=== PATIENT | female | born 1965 | race Caucasian/White ===

== ENCOUNTER → 2021-04-17 08:50 | Outpatient (BNVA) | payer OTHER, SELFPAY | PROVIDERS: PCP Physician Assistant Medical; Referring Provider Physician Assistant Medical; Visit Provider Internal Medicine Cardiovascular Disease ==

== ENCOUNTER → 2021-04-20 13:34 | Outpatient (REF) | payer OTHER, SELFPAY ==
--- NOTE | 2021-04-20 13:42 | HM_ITS ---
REQUESTING PROVIDER: Matheus Krause MD. REASON FOR TEST: TIA. TECHNIQUE: The patient was hooked up to a cardiac event monitor from 04/20/2021 to 05/20/2021. FINDINGS: The patient's baseline rhythm was normal sinus rhythm with heart rate varying from 67 to 100 beats per minute. There was 1 single isolated PVC noted. The patient triggered the device 44 times totally, but only few times reported symptoms of fluttering. All of these triggered events correlated to sinus rhythm. There were no episodes of atrial fibrillation. CONCLUSION: 1. Baseline rhythm is normal sinus rhythm with heart rate varying from 67 to 100 beats per minute. 2. The patient triggered events correlated with sinus rhythm. 3. No atrial fibrillation noted. Matheus Krause MD NRS/MODL / [id number]
== END ==
LOC: HO.CARD 13:34
PROVIDERS: PCP Physician Assistant Medical; Visit Provider Internal Medicine Cardiovascular Disease
DX: G45.9 Transient cerebral ischemic attack, unspecified (principal)
CPT/HCPCS: 93270

== ENCOUNTER 2021-04-25 10:42 | Day surgery (SDC) | payer OTHER, SELFPAY ==
--- NOTE | 2021-04-24 13:15 | HO.ANESPROP2 ---
Documented by User: Jerilyn Dempsey NP 04/24/21 13:19 HPI - Anesthesia Eval Consult details Narrative: 56yo F for Transesophageal Echocardiogram *Multiple Med Allergies Eval d/t TIA 12/2020 [facility] Active Problems Active Problems: All Active Problems (Updated 04/17/21 @ 09:49 by Matheus Krause MD) Hyperlipidemia (Acute) TIA (transient ischemic attack) (Acute) Past Medical History Medical History Allergy to statin medication Hyperlipidemia TIA (transient ischemic attack) Family History Family History Father CVD (cardiovascular disease) Mother No problems noted. Brother CVD (cardiovascular disease) Surgical History Surgical History Hx of abdominal surgery Hx of breast surgery Hx of cholecystectomy Hx of hernia repair Hx of hysterectomy Hx of knee surgery Hx of thyroidectomy Social History Social History Patient Tobacco Use Status: Never used Tobacco Use of substances other than those prescribed or required for medical reasons: No Are you DNR?: No Advance Directives: No Advance Directives Information Provided: Yes Recently lost weight without trying: No Nutrition Risks: No Nutritional Risk Meds Allergies Allergy/AdvReac Type Severity Reaction Status Date / Time Pohqron-RHC-AfW Reductase Allergy Severe Muscle Pain Verified 04/25/21 11:08 Inhibitor atenolol Allergy Mild Palpitation Verified 04/25/21 11:10 s adhesive tape Allergy rash Verified 04/17/21 09:38 gabapentin [From Neurontin] Allergy Blurry Verified 04/25/21 11:11 Vision hydrocodone [From Vicodin] Allergy Vomiting Verified 04/25/21 11:11 hydromorphone [From Dilaudid] Allergy Vomiting Verified 04/25/21 11:09 meperidine [From Demerol] Allergy Vomiting Verified 04/25/21 11:06 morphine Allergy Vomiting Verified 04/25/21 11:05 oxycodone [From Percocet] Allergy Vomiting Verified 04/25/21 11:05 Sulfa (Sulfonamide Allergy Hives Verified 04/25/21 11:05 Antibiotics) Home Medications Medication Instructions Recorded Confirmed Last Taken Type aspirin 81 mg tablet,delayed 81 mg PO DAILY 04/17/21 04/17/21 Unknown History release (Adult Aspirin Regimen) furosemide 40 mg tablet 40 mg PO TID 04/17/21 04/17/21 Unknown History krill oil 500 mg capsule mg PO 04/17/21 04/17/21 Unknown History levothyroxine 175 mcg tablet 175 mcg PO DAILY 04/17/21 04/17/21 04/25/21 07:00 History (Synthroid) potassium chloride 20 mEq 20 meq PO BID 04/17/21 04/17/21 Unknown History tablet,extended release(part/cryst) Exam Exam Date and Time: April 24, 2021 1315 Assessment and Plan Assessment Anesthesia Assessment: Chart Reviewed Documented by User: Ashia Matute MD 04/25/21 12:56 [facility] Past Medical History Medical History Allergy to statin medication Hyperlipidemia TIA (transient ischemic attack) Family History Family History Father CVD (cardiovascular disease) Mother No problems noted. Brother CVD (cardiovascular disease) Surgical History Surgical History Hx of abdominal surgery Hx of breast surgery Hx of cholecystectomy Hx of hernia repair Hx of hysterectomy Hx of knee surgery Hx of thyroidectomy History of Problems with Anesthesia: No Social History Social History Patient Tobacco Use Status: Never used Tobacco Use of substances other than those prescribed or required for medical reasons: No Are you DNR?: No Advance Directives: No Advance Directives Information Provided: Yes Recently lost weight without trying: No Nutrition Risks: No Nutritional Risk Meds Allergies Allergy/AdvReac Type Severity Reaction Status Date / Time Leugfto-JVR-ZzJ Reductase Allergy Severe Muscle Pain Verified 04/25/21 11:08 Inhibitor atenolol Allergy Mild Palpitation Verified 04/25/21 11:10 s adhesive tape Allergy rash Verified 04/17/21 09:38 gabapentin [From Neurontin] Allergy Blurry Verified 04/25/21 11:11 Vision hydrocodone [From Vicodin] Allergy Vomiting Verified 04/25/21 11:11 hydromorphone [From Dilaudid] Allergy Vomiting Verified 04/25/21 11:09 meperidine [From Demerol] Allergy Vomiting Verified 04/25/21 11:06 morphine Allergy Vomiting Verified 04/25/21 11:05 oxycodone [From Percocet] Allergy Vomiting Verified 04/25/21 11:05 Sulfa (Sulfonamide Allergy Hives Verified 04/25/21 11:05 Antibiotics) Home Medications Medication Instructions Recorded Confirmed Last Taken Type aspirin 81 mg tablet,delayed 81 mg PO DAILY 04/17/21 04/17/21 Unknown History release (Adult Aspirin Regimen) furosemide 40 mg tablet 40 mg PO TID 04/17/21 04/17/21 Unknown History krill oil 500 mg capsule mg PO 04/17/21 04/17/21 Unknown History levothyroxine 175 mcg tablet 175 mcg PO DAILY 04/17/21 04/17/21 04/25/21 07:00 History (Synthroid) potassium chloride 20 mEq 20 meq PO BID 04/17/21 04/17/21 Unknown History tablet,extended release(part/cryst) Exam Airway Mallampati Class: II TM Dist: >3cm Neck ROM: Full Loose/Missing/Broken Teeth: No Heart: RRR Lungs: CTA Assessment and Plan Assessment Anesthesia Assessment: Anesthesia Plan Discussed Final Anesthetic Review History of Problems with Anesthesia: No NPO: Yes ASA Class: II Final Preanesthetic Review: Meds/Allgs Chart Reviewed, Consent Obtained/Reviewed and Anes Risks/Benef Reviewed Patient Risk: Low Procedure Risk: Intermediate Anesthetic Plan Anesthetic Plan: MAC: Disposition: Standard PACU
[2021-04-25 11:14] VITALS: BMI 35.2
[2021-04-25 11:28] VITALS: BP 114/83; PULSE 74; RESP 16; TEMP 36.8; O2SAT 96
[2021-04-25] MEDS: Lactated Ringers 1,000 ML 50 ML IVCONT (11:33)
--- NOTE | 2021-04-25 11:55 | CA_ITS ---
Transesophageal Echocardiogram Amended Patient (Last, First, Middle): Leydi Miller, Gender: Female Date of : 1965 Age: 56 Procedure Date: 04/25/2021 Procedure Type: Transesophageal Echocardiogram Location: OP Height: 175.26 cm Weight: 108.41 kg BSA: 2.23 m2 Heart Rate: bpm Park Naturalist: VINH Pepe MD: Matheus Krause MD Symptoms: G45.9 - Transient cerebral ischemic attack, unspecified Bull Ladle Tender: Matheus Krause MD Conclusion: ??? 1. Normal LV systolic and diastolic function 2. No intracardiac masses, vegetations or thrombi 3. Lipomatous hypertrophy of interatrial septum with no evidence of PFO 4. Protruding plaque in the ascending aorta as well as mobile plaque in the transverse aorta with evidence of atherosclerosis 5. Normal cardiac valvular Doppler 6. No pericardial effusion Findings Procedure Information Consent was obtained prior to the procedure. Pre PRATIMA oral cavity was checked and revealed no overcrowding. The adult 3D probe was passed with no difficulty. Left Ventricle Normal left ventricular size, thickness, and systolic function. The visually estimated ejection fraction is between 60-65%. Spectral Doppler is indicative of a normal filling pattern. Right Ventricle Mildly increased right ventricular cavity size. There is normal right ventricular systolic function. Atria The left atrium is mildly dilated. There is lipomatous hypertrophy of the interatrial septum. There is no evidence of a thrombus in the left atrial appendage. There is no evidence of a patent foramen ovale. There is no evidence of thrombus or mass in the left atrium. Color Doppler across the interatrial septum was suggestive of no evidence of interatrial shunting. Multiple saline contrast injection studies were performed, although there was no complete opacification at all times of the for salt wall is there was no clear evidence of shunting. The left upper, right upper and right lower pulmonary veins drain normally into the left atrium. The right atrium is mildly dilated. There is no evidence of thrombus or mass in the right atrium. The IVC and SVC drain normally into the right atrium. Aortic Valve Normal aortic valve structure and function. There is mild calcification of the aortic valve. There is no aortic valve stenosis. There is no evidence of a mass on the aortic valve. There is no aortic valve regurgitation. Mitral Valve Normal mitral valve structure and function. There is no mitral valve prolapse. There is trace mitral valve regurgitation. There is no mitral valve stenosis. Pulmonic Valve The pulmonic valve is likely normal. There is no pulmonic valve regurgitation. Tricuspid Valve Normal tricuspid valve structure. There is trace tricuspid valve regurgitation. There is no evidence of a mass on the tricuspid valve. Great Vessels All visible segments of the aorta are normal in size. Small plaque is seen in the sino tubular ridge. The visualized portions of the pulmonary artery and branches are normal. There is also moderate also crosses in arch with a mobile plaque noted Venous The inferior vena cava is normal in size and collapses greater than 50% with inspiration. Pericardium/Pleural There is no evidence of pericardial effusion. Updated by Matheus Krause on 05:26 PM with Status of Final Matheus Krause MD electronically signed on 04/25/2021 5:26:58 PM with status of Final
--- NOTE | 2021-04-25 12:38 | MHC.SHP ---
Pre-Procedural Eval Section A Date of Service: 04/25/21 The patient is an INPATIENT: No Changes since office visit: Yes Patient answered all questions; No Cold of Flu in the past 2 weeks, No New Medical Problems and No Changes in Medication The History & Physical has been completed within 30 days and I have reviewed it.: Yes Section B Chief Complaint: TIA Allergies: Allergies Allergy/AdvReac Type Severity Reaction Status Date / Time [id number] Reductase Allergy Severe Muscle Pain Verified 04/25/21 11:08 Inhibitor atenolol Allergy Mild Palpitation Verified 04/25/21 11:10 s adhesive tape Allergy rash Verified 04/17/21 09:38 gabapentin [From Neurontin] Allergy Blurry Verified 04/25/21 11:11 Vision hydrocodone [From Vicodin] Allergy Vomiting Verified 04/25/21 11:11 hydromorphone [From Dilaudid] Allergy Vomiting Verified 04/25/21 11:09 meperidine [From Demerol] Allergy Vomiting Verified 04/25/21 11:06 morphine Allergy Vomiting Verified 04/25/21 11:05 oxycodone [From Percocet] Allergy Vomiting Verified 04/25/21 11:05 Sulfa (Sulfonamide Allergy Hives Verified 04/25/21 11:05 Antibiotics) Plan I have reviewed the history and physical and performed a pertinent physical examination on my patient. No changes have occurred unless specified.
[2021-04-25 13:26] VITALS: BP 128/75; PULSE 68; RESP 18; TEMP 36.8; O2SAT 100
[2021-04-25 13:41] VITALS: BP 126/64; PULSE 63; RESP 18; O2SAT 100
[2021-04-25 14:02] VITALS: BP 135/75; PULSE 70; RESP 18; O2SAT 96
== END 2021-04-25 14:47 | disposition home or self-care (01) ==
PROVIDERS: PCP Physician Assistant Medical; Visit Provider Internal Medicine Cardiovascular Disease
PROC: (CPT 93312; principal; 2021-04-25 12:30)
DX: G45.9 Transient cerebral ischemic attack, unspecified (principal); E78.5 Hyperlipidemia, unspecified; Z79.82 Long term (current) use of aspirin; Z79.899 Other long term (current) drug therapy; Z88.2 Allergy status to sulfonamides; Z88.8 Allergy status to other drugs, medicaments and biological substances
CPT/HCPCS: 93312

== ENCOUNTER → 2021-05-09 09:25 | Outpatient (BNVA) | payer OTHER, SELFPAY | PROVIDERS: PCP Physician Assistant Medical; Referring Provider Physician Assistant Medical; Visit Provider Internal Medicine Cardiovascular Disease ==

== ENCOUNTER 2021-08-20 08:03 | Outpatient (REF) | payer OTHER, SELFPAY ==
[2021-08-20 09:27] LABS: Cholesterol 221 mg/dL; HDL Cholesterol 46 mg/dL; LDL Cholesterol Calculated 127 mg/dl; Triglycerides 243 mg/dL
== END 2021-08-20 08:04 | disposition home or self-care (01) ==
LOC: HO.LAB 08:03
PROVIDERS: PCP Physician Assistant Medical; Visit Provider Internal Medicine Cardiovascular Disease
DX: E78.5 Hyperlipidemia, unspecified (principal)
CPT/HCPCS: 36415; 80061

== ENCOUNTER 2021-11-27 10:13 | Outpatient (REF) | payer OTHER, SELFPAY ==
[2021-11-27 12:14] LABS: Cholesterol 218 mg/dL; HDL Cholesterol 38 mg/dL; LDL Cholesterol Calculated 125 mg/dl; Triglycerides 279 mg/dL
== END 2021-11-27 10:14 | disposition home or self-care (01) ==
LOC: HO.LAB 10:13
PROVIDERS: PCP Physician Assistant Medical; Visit Provider Internal Medicine Cardiovascular Disease
DX: E78.5 Hyperlipidemia, unspecified (principal)
CPT/HCPCS: 36415; 80061

== ENCOUNTER 2022-02-12 08:55 | Outpatient (REF) | payer OTHER, SELFPAY ==
[2022-02-12 10:10] LABS: Cholesterol 150 mg/dL; HDL Cholesterol 49 mg/dL; LDL Cholesterol Calculated 49 mg/dl; Triglycerides 261 mg/dL
== END 2022-02-12 08:56 | disposition home or self-care (01) ==
LOC: HO.LAB 08:55
PROVIDERS: PCP Physician Assistant Medical; Visit Provider Internal Medicine Cardiovascular Disease
DX: E78.5 Hyperlipidemia, unspecified (principal)
CPT/HCPCS: 36415; 80061

== ENCOUNTER 2022-03-05 11:39 | Emergency (ER) | payer OTHER, SELFPAY ==
--- NOTE | 2022-03-05 | ECG_ITS ---
Test Reason : chest pain Blood Pressure : / mmHG Vent. Rate : 070 BPM Atrial Rate : 070 BPM P-R Int : 174 ms QRS Dur : 098 ms QT Int : 434 ms P-R-T Axes : 026 -16 013 degrees QTc Int : 468 ms Normal sinus rhythm Minimal voltage criteria for LVH, may be normal variant ( [place] product ) Nonspecific T wave abnormality Abnormal ECG No previous ECGs available Referred By: Curt Ordoñez Electronically Signed By:NIMESH WARREN
--- NOTE | ~2022-03-05 | US_ITS ---
EXAMINATION: US VENOUS ULTRASOUND WITH DOPPLER LOWER EXTREMITY, BILATERAL CLINICAL INFORMATION: Positive d-dimer. COMPARISON: Concurrent CTA of the chest 03/05/2022. TECHNIQUE: Ultrasound of the deep veins is performed from the hip to the calf with compression sonography and color and pulse Doppler assessment. Spectral analysis with color-flow imaging is performed. FINDINGS: RIGHT: There is normal venous compression and respiratory variation and augmented flow. The visualized common femoral vein, superficial femoral vein, profunda femoral vein, popliteal vein, and the trifurcation region shows no evidence of deep venous thrombosis. There are no focal fluid collections. LEFT: There is normal venous compression and respiratory variation and augmented flow. The visualized common femoral vein, superficial femoral vein, profunda femoral vein, popliteal vein, and the trifurcation region shows no evidence of deep venous thrombosis. There are no focal fluid collections. If the patient's symptoms persist, followup ultrasound in 5 days 7 days might be of value to exclude proximal propagation from a non-visualized calf vein. US/US venous duplex LE BI IMPRESSION: 1. No DVT demonstrated in the bilateral lower extremities. 2. There are no focal fluid collections.
--- NOTE | ~2022-03-05 | XR_ITS ---
EXAMINATION: XR CHEST CLINICAL INFORMATION: Chest pain. COMPARISON: None TECHNIQUE: Frontal view of the chest was obtained. FINDINGS: No significant abnormality is noted involving the heart, lungs, mediastinum, bony thorax or soft tissues. XR/XR chest 1V IMPRESSION: No acute cardiopulmonary process.
--- NOTE | ~2022-03-05 | NM_ITS ---
EXAMINATION: PULMONARY PERFUSION STUDY CLINICAL INFORMATION: Indeterminate CTA. Assess for pulmonary emboli. COMPARISON: Concurrent CTA of the chest an chest x-ray 03/05/2022. TECHNIQUE: Serial dual detector gamma scintillation camera images were obtained after intravenous injection of 3.5 mCi Tc-99m MAA and an 8-view perfusion study was performed. No ventilation images were acquired as per Perfusion-only modified PIOPED II protocol. FINDINGS: Perfusion images: No segmental perfusion defects are present. There is homogeneous/heterogeneous distribution of activity bilaterally. There are no segmental or anatomic appearing perfusion defects present. NM/NM pul perfusion IMPRESSION: Normal pulmonary perfusion scan. Perfusion-only interpretation reduces both the specificity and the proportion of nondiagnostic readings compared to ventilation and perfusion using modified PIOPED II criteria Modified PIOPED II criteria: A large segmental defect covers >75% of a pulmonary segment. A moderate, subsegmental defect covers 25-75% of a pulmonary segment and is considered in the interpretative criteria equivalent to one-half of a large defect. A small, subsegmental defect covers <25% of a pulmonary segment. Pulmonary embolism present (high probability) * two or more large mismatched segmental perfusion defects or the arithmetic equivalent of moderate and/or large defects Nondiagnostic (low or intermediate probability) * all other findings not falling into the pulmonary embolism present or absent categories Pulmonary embolism absent (normal or very low probability) * no perfusion defects * nonsegmental perfusion defects (e.g. pleural effusion at the costophrenic angle, cardiomegaly, elevated hemidiaphragm, hilar enlargement, linear atelectasis), without other perfusion defects in either lung * perfusion defects smaller than corresponding chest radiographic opacity * one to three small subsegmental perfusion defects * two or more matched ventilation and perfusion defects with a regionally normal chest radiograph and some areas of normal perfusion elsewhere * solitary triple matched defect (matched ventilation and perfusion defect with corresponding chest radiographic opacity) in a single segment in the middle or upper lung zone * stripe sign (a stripe of perfusion peripheral to a defect, best seen on tangential view) * large pleural effusion (occupying one-third or more of the pleural cavity), without other perfusion defects in either lung
--- NOTE | ~2022-03-05 | CT_ITS ---
EXAMINATION: CT ANGIOGRAM OF THE CHEST WITH AND WITHOUT CONTRAST (CT PULMONARY ANGIOGRAM FOR PE) CLINICAL INFORMATION: Reason for Exam chest pain, elevated ddimer COMPARISON: None TECHNIQUE: Prior to contrast administration, noncontrast localization images were obtained. Subsequently, multidetector volumetric imaging was performed from the thoracic inlet to below the diaphragms following the administration of 65 mL Omnipaque 350 intravenous contrast. No contrast reaction reported Sagittal, coronal, and MIP oblique sagittal reformatted images were obtained on the CT workstation, uploaded to PACS, and reviewed. This CT examination was performed using dose optimization techniques as appropriate, variously including the following: *Automated exposure control *Adjustment of mA and/or kV according to patient size (this includes techniques or standardized protocols for targeted exams where dose is matched to indication/reason for exam; i.e. extremities or head) *Use of iterative reconstruction technique Total exam dose-length product 326 mGy-cm FINDINGS: QUALITY OF STUDY/CONTRAST BOLUS: Suboptimal. The pulmonary arteries are the most poorly opacified vascular structures on this study. PULMONARY ARTERIES: No central or very large segmental pulmonary emboli. THORACIC AORTA: No aneurysm or dissection. LUNG: No focal consolidation, nodules or masses. Tiny punctate granuloma noted in the left lateral costophrenic angle. PLEURA: No pleural effusion or pneumothorax. MEDIASTINUM: Normal heart size. No pericardial effusion. No hilar or mediastinal lymphadenopathy. No evidence of septal bowing or right heart strain. CHEST WALL/AXILLA: No axillary or internal mammary lymphadenopathy. OSSEOUS STRUCTURES: No acute or suspicious osseous abnormality. UPPER ABDOMEN: Status post cholecystectomy No reflux of contrast into the hepatic veins to suggest elevated right heart pressures. CT/CT angio chest PE protocol IMPRESSION: Poor quality exam. No central or very large segmental emboli are seen. VTE: indeterminate
[2022-03-05 13:48] VITALS: BP 135/83; PULSE 73; RESP 18; TEMP 36.2; O2SAT 98; BMI 35.4
--- NOTE | 2022-03-05 14:01 | PC.NURSE ---
patient triaged no complaints of chest pain at present, she had two episodes since friday and her provider this morning sent her here for evaluation. She denies chest pain now, no SOB or dizziness. She's here to be evaluated for the ongoing complaint of chest pain intermittent lasting 10-20 minutes that resolves on it's own. She has been dealing with poison [place] and infections with this exposure.
--- NOTE | 2022-03-05 14:20 | ED.CHESTPAIN ---
HPI - Chest Pain General Chief Complaint: Chest Pain Stated Complaint: severe cellulitus/ angina Time Seen by Provider: 03/05/22 14:16 Source: patient and old records reviewed Mode of arrival: ambulatory Limitations: no limitations History of Present Illness HPI narrative: 56 yo female with hx of HLD on Praluent, hx of mobile transverse aortoa plaque on aspirin and plavix, prior right breast ductal carcinoma in situ has been dealing with a rash following exposure to poison sumac. She has a history of terrible reactions to sumac in the past. She has been see at for the last 2.5 weeks - has been on two rounds of cephalexin 500mg QID, prednisone taper over 10 days, even a course of famcyclovir in case it was shingles. She notes that the rash has not really improved and she is worried she has cellulitis. Also notes intermittent bouts of chest pain that is intense with some associated indigestion one on Friday while driving and the other last night. Sent by today for chest pain evaluation. MD complaint: chest pain (rash) Pertinent past history: other (atherosclerosis of aorta) Onset (ago): week(s) (2.5 weeks ago for rash and chest pain intemittent since friday ) Timing of current episode: constant Prior episodes: Yes Onset: during rest Pain location: substernal Pain radiation: left arm and neck Severity: moderate Quality: heaviness Relieving factors: nothing Exacerbating factors: nothing Context: recent illness and new medications Associated symptoms: dyspnea Treatment prior to arrival: none Related Data Home Medications Medication Instructions Recorded Confirmed aspirin 81 mg tablet,delayed 81 mg PO DAILY 04/17/21 05/09/21 release (Adult Aspirin Regimen) furosemide 40 mg tablet 40 mg PO TID 04/17/21 05/09/21 levothyroxine 175 mcg tablet 175 mcg PO DAILY 04/17/21 05/09/21 (Synthroid) potassium chloride 20 mEq 20 meq PO BID 04/17/21 05/09/21 tablet,extended release(part/cryst) furosemide 40 mg tablet 80 mg PO DAILY 03/05/22 Previous Rx's Medication Instructions Recorded bempedoic acid 180 mg tablet 180 mg PO DAILY 90 days #90 tabs 08/20/21 (Nexletol) clopidogrel 75 mg tablet (Plavix) 75 mg PO DAILY #30 tabs 11/07/21 alirocumab 150 mg/mL subcutaneous 150 mg subcut Q2W 90 days #7 mL 12/14/21 pen injector (Praluent Pen) Allergies Allergy/AdvReac Type Severity Reaction Status Date / Time ezetimibe [From Zetia] Allergy Severe abdominal Verified 05/09/21 09:43 pain Kfuzehb-AHH-LeV Reductase Allergy Severe Muscle Pain Verified 04/25/21 11:08 Inhibitor atenolol Allergy Mild Palpitation Verified 04/25/21 11:10 s adhesive tape Allergy rash Verified 04/17/21 09:38 gabapentin [From Neurontin] Allergy Blurry Verified 04/25/21 11:11 Vision hydrocodone [From Vicodin] Allergy Vomiting Verified 04/25/21 11:11 hydromorphone [From Dilaudid] Allergy Vomiting Verified 04/25/21 11:09 meperidine [From Demerol] Allergy Vomiting Verified 04/25/21 11:06 morphine Allergy Vomiting Verified 04/25/21 11:05 oxycodone [From Percocet] Allergy Vomiting Verified 04/25/21 11:05 Sulfa (Sulfonamide Allergy Hives Verified 04/25/21 11:05 Antibiotics) Review of Systems Review of Systems: Constitutional : No Weight loss, No Fever, No Chills ENT/Mouth : No sore throat, No Rhinorrhea Eyes: No Eye Pain, No Swelling Cardiovascular : pos Chest Pain, pos SOB, no Dyspnea on Exertion, No Orthopnea, No Edema, No Palpitations Respiratory : No Cough, No Sputum Gastrointestinal : no Nausea, No Vomiting, No Diarrhea, No abdominal Pain, No Hematochezia, No Melena Genitourinary : No Dysuria, No Urinary Frequency Musculoskeletal : No joint pain, No Myalgias, No Joint Swelling Skin : No Skin Lesions, pos rash Neuro : No Weakness, No Numbness, No Dizziness, No Headache Psych : No Anxiety/Panic, No Depression Heme/Lymph: No Bruising, No Lymphadenopathy Endocrine : No Polyuria, No Polydipsia All other systems reviewed and are negative [facility] Past Medical History Attestation statement: The following information was validated with the patient. Medical History (Updated 03/05/22 @ 15:15 by Celena Hardy DO) Allergy to statin medication Ductal carcinoma in situ (DCIS) of breast Hyperlipidemia Thoracic aorta atherosclerosis TIA (transient ischemic attack) Surgical History Hx of abdominal surgery Hx of breast surgery Hx of cholecystectomy Hx of hernia repair Hx of hysterectomy Hx of knee surgery Hx of thyroidectomy Family History Family History Father CVD (cardiovascular disease) Mother No problems noted. Brother CVD (cardiovascular disease) Social History Social History Patient Tobacco Use Status: Never used Tobacco Advance Directives: No Advance Directives Information Provided: No Physical Exam Vital Signs: Vital Signs: Last Vital Signs Temp 97.2 F 03/05/22 13:48 Pulse 73 03/05/22 13:48 Resp 18 03/05/22 13:48 BP 135/83 03/05/22 13:48 Pulse Ox 98 03/05/22 13:48 O2 Del Method 03/05/22 13:48 BMI result Body Mass Index 35.4 Appearance: Alert. Oriented X3. No acute distress. Anxious Eyes: Pupils equal, round and reactive to light. ENT: Pharynx normal. Neck: Normal inspection. Neck supple. CVS: Normal heart rate and rhythm. Pulses normal. Respiratory: No respiratory distress. Breath sounds normal. Abdomen: Soft and non-tender. Skin: Skin warm and dry. Normal skin color. Normal skin turgor. Extremities: No lower extremity edema. No calf ttp R upper inner AC healing flaked over patchy rash no warmth not raised not consistent wtih cellulitis, her abdomen has patchy areas of faint pink large confluent areas that are not warm and appear as giant urticaria, R breast is reddned no fluctuance, no mass felt, no drainage - very minimal warmth and the redness is mild. Neuro: Oriented X 3. No motor deficit. No sensory deficit. Course Course Course Narrative: ddimer above VTE will obtain CTA:PE study to r/o PE MDM - Chest Pain MDM Narrative Medical decision making narrative: 56 yo female with hx of HLD on Praluent, hx of mobile transverse aortoa plaque on aspirin and plavix, prior right breast ductal carcinoma here with c/o persistent rash from poison [place] concerned she has cellulitis her R arm and abdomen are still leftover dermatitis, she might have mild cellulitis of the R breast but no abscess. She definitely could use longer prednisone course has no hx of DM. She also c/o chest pain x intermittent since Friday has hx of mobile aortic plaque she does not it radiated to her jaw and back at this time EKG and troponin x 2 with ddimer ordered. Dispo per results and findings. Discussed stopping her cephalexin will consider doxycycline and prednisone if workup negative add on GERD medication. ECG Data ECG #1: Attestation: I personally reviewed and interpreted this ECG as follows: ECG interpretation date: 03/05/22 ECG interpretation time: 14:51 Interpretation: Rate: 70 Rhythm: NSR [place]: left Normal P waves. Normal ANGELICA. Normal QRS complex. ST T wave : nonspecific no LYNNE qTC: normal prior studies: no acute ischemia no EKGs in our system to review The study has been interpreted contemporaneously by me. . Discharge Plan Discharge Clinical Impression: Chest pain Patient Disposition: Still a Patient Prescriptions: No Action Nexletol 180 mg tablet 180 mg PO DAILY 90 Days Qty: 90 1RF clopidogrel [Plavix] 75 mg tablet 75 mg PO DAILY Qty: 30 5RF Praluent Pen 150 mg/mL pen injector 150 mg subcut Q2W 90 Days Qty: 7 3RF Rx Instructions: inject into abdomen, thigh, or upper arm (deltoid muscle); rotate sites potassium chloride 20 mEq tablet,ER particles/crystals 20 meq PO BID furosemide 40 mg tablet 40 mg PO TID levothyroxine [Synthroid] 175 mcg tablet 175 mcg PO DAILY aspirin [Adult Aspirin Regimen] 81 mg tablet,delayed release (DR/EC) 81 mg PO DAILY krill oil 500 mg capsule PO
[2022-03-05 14:57] LABS: D Dimer High Sensitivity 336 NG/ML
[2022-03-05 15:04] LABS: Alanine Aminotransferase 63 U/L (0-31); Albumin Level 4.7 g/dL (3.5-5.0); Alkaline Phosphatase 75 U/L (39-117); Anion Gap 19 (12-20); Aspartate Amino Transferase 28 U/L (5-31); Bilirubin Direct 0.3 mg/dL (0.0-0.5); Bilirubin Total 0.7 mg/dL (0.0-1.0); Blood Urea Nitrogen 22 mg/dL (9-16); C Reactive Protein 2.12 mg/dL (< or = 0.50); Calcium 9.8 mg/dL (8.4-10.2); Carbon Dioxide 26 mmol/L (22-29); Chloride 100 mmol/L (96-108); Creatinine Clr Calc Pharmacy 90.5; Estimated Glomerular Filt Rate > 60; Glucose Random 105 mg/dL (60-115); Lipase 106 U/L (8-78); Potassium 3.4 mmol/L (3.3-5.1); Sodium 142 mmol/L (135-145)
[2022-03-05 16:09] LABS: Basophils Absolute Auto 0.1 X10*3/uL (0.0-0.2); Basophils Percent Auto 0.8 % (0-2); Eosinophils Absolute Auto 0.4 X10*3/uL (0.0-0.4); Eosinophils Percent Auto 4.7 % (0-4); Hematocrit 50.3 % (37.0-47.0); Hemoglobin 16.6 g/dl (12.0-16.0); Imm Gran Abs Auto 0.03 X10*3/uL (0.00-0.03); Imm Gran Pct Auto 0.3 % (0.0-0.4); Lymphocytes Absolute Auto 1.9 X10*3/uL (1.2-4.9); Lymphocytes Percent Auto 20.4 % (20-40); MANUAL DIFF FLAG NO; Mean Corpuscular Hemoglobin 29.2 pg (27.0-33.0); Mean Corpuscular Volume 88.4 fL (80.0-98.0); Mean Platelet Volume 9.4 fL (9.4-12.3); Monocytes Absolute Auto 0.7 X10*3/uL (0.1-1.2); Monocytes Percent Auto 6.9 % (2-11); Neutrophils Absolute Auto 6.3 x10*3/uL (2.0-8.3); Neutrophils Percent Auto 66.9 % (45-73); Platelet Count 347 X10*3/uL (160-400); Red Blood Count 5.69 X10*6/uL (4.20-5.50); White Blood Count 9.4 X10*3/uL (4.8-10.8)
[2022-03-05] MEDS: iohexoL 350 MG/ML 100 ML INFUS..BTL IV (16:21)
[2022-03-05 16:22] LABS: Lactic Acid 0.9 mmol/L (0.5-2.0)
[2022-03-05 16:29] LABS: Troponin-I High Sensitivity < 3.5 ng/L (<3.5-17.0)
[2022-03-05 16:46] LABS: Procalcitonin 0.05 ng/mL
--- NOTE | 2022-03-05 17:23 | ED_ITS ---
HPI - Chest Pain General Chief Complaint: Chest Pain Stated Complaint: severe cellulitus/ angina Time Seen by Provider: 03/05/22 14:16 Source: patient and old records reviewed Mode of arrival: ambulatory Limitations: no limitations History of Present Illness Pain location: substernal Quality: heaviness Relieving factors: nothing Exacerbating factors: nothing Context: recent illness and new medications Associated symptoms: dyspnea Related Data Home Medications Medication Instructions Recorded Confirmed aspirin 81 mg tablet,delayed 81 mg PO DAILY 04/17/21 05/09/21 release (Adult Aspirin Regimen) furosemide 40 mg tablet 40 mg PO BEDTIME 04/17/21 05/09/21 levothyroxine 175 mcg tablet 175 mcg PO DAILY 04/17/21 05/09/21 (Synthroid) potassium chloride 20 mEq 20 meq PO BID 04/17/21 05/09/21 tablet,extended release(part/cryst) furosemide 40 mg tablet 80 mg PO DAILY 03/05/22 Previous Rx's Medication Instructions Recorded bempedoic acid 180 mg tablet 180 mg PO DAILY 90 days #90 tabs 08/20/21 (Nexletol) clopidogrel 75 mg tablet (Plavix) 75 mg PO DAILY #30 tabs 11/07/21 alirocumab 150 mg/mL subcutaneous 150 mg subcut Q2W 90 days #7 mL 12/14/21 pen injector (Praluent Pen) doxycycline hyclate 100 mg capsule 100 mg PO BID 10 days #20 caps 03/05/22 famotidine 20 mg tablet (Pepcid) 20 mg PO DAILY #14 tabs 03/05/22 prednisone 20 mg tablet 20 mg PO DAILY 15 days #13 tabs 03/05/22 Allergies Allergy/AdvReac Type Severity Reaction Status Date / Time ezetimibe [From Zetia] Allergy Severe abdominal Verified 05/09/21 09:43 pain [id number] Reductase Allergy Severe Muscle Pain Verified 04/25/21 11:08 Inhibitor atenolol Allergy Mild Palpitation Verified 04/25/21 11:10 s adhesive tape Allergy rash Verified 04/17/21 09:38 gabapentin [From Neurontin] Allergy Blurry Verified 04/25/21 11:11 Vision hydrocodone [From Vicodin] Allergy Vomiting Verified 04/25/21 11:11 hydromorphone [From Dilaudid] Allergy Vomiting Verified 04/25/21 11:09 meperidine [From Demerol] Allergy Vomiting Verified 04/25/21 11:06 morphine Allergy Vomiting Verified 04/25/21 11:05 oxycodone [From Percocet] Allergy Vomiting Verified 04/25/21 11:05 Sulfa (Sulfonamide Allergy Hives Verified 04/25/21 11:05 Antibiotics) [facility] Past Medical History Medical History (Updated 03/05/22 @ 17:19 by URSZULA Tay) Allergy to statin medication Ductal carcinoma in situ (DCIS) of breast Hyperlipidemia Thoracic aorta atherosclerosis TIA (transient ischemic attack) Surgical History Hx of abdominal surgery Hx of breast surgery Hx of cholecystectomy Hx of hernia repair Hx of hysterectomy Hx of knee surgery Hx of thyroidectomy Family History Family History Father CVD (cardiovascular disease) Mother No problems noted. Brother CVD (cardiovascular disease) Social History Social History Patient Tobacco Use Status: Never used Tobacco Advance Directives: No Advance Directives Information Provided: No Physical Exam Vital Signs: Vital Signs: Last Vital Signs Temp 98.0 F 03/05/22 19:36 Pulse 69 03/05/22 19:36 Resp 16 03/05/22 19:36 BP 131/80 03/05/22 19:36 Pulse Ox 98 03/05/22 19:36 O2 Del Method 03/05/22 19:36 BMI result Body Mass Index 35.4 Course Reevaluation(s) Reevaluation #1: CTA with no signs of large or segmental pulmonary embolism. Study limited due to quality however no evidence of large PE at this time. Due to patient's risk factors, this case was discussed with my attending Dr. Burris we will obtain a V/Q scan to rule out PE. Patient will be hydrated in the meantime. Time: 17:24 Reevaluation #2: VQ -, Us -. Patient without chest pain. She will follow-up with PCP, OBGYN, cardiology. At this time I feel comfortable with discharge home. Educated on worrisome signs and symptoms and when to return. Time: 19:47 MDM - Chest Pain Lab Data Result diagrams: 03/05/22 15:52 03/05/22 14:28 Labs: Lab Results 03/05/22 03/05/22 03/05/22 Range/Units 14:28 14:28 15:52 WBC (4.8-10.8) X10*3/uL RBC (4.20-5.50) X10*6/uL Hgb (12.0-16.0) g/dl Hct (37.0-47.0) % MCV (80.0-98.0) fL MCH (27.0-33.0) pg MCHC (31.0-35.0) g/dl RDW (11.0-16.0) % Plt Count (160-400) X10*3/uL MPV (9.4-12.3) fL Immature Gran % (Auto) (0.0-0.4) % Neut % (Auto) (45-73) % Lymph % (Auto) (20-40) % [place] % (Auto) (2-11) % Eos % (Auto) (0-4) % Baso % (Auto) (0-2) % Lymph # (Auto) (1.2-4.9) X10*3/uL [place] # (Auto) (0.1-1.2) X10*3/uL Eos # (Auto) (0.0-0.4) X10*3/uL Baso # (Auto) (0.0-0.2) X10*3/uL Abs Immat Gran (auto) (0.00-0.03) X10*3/uL Absolute Neuts (auto) (2.0-8.3) x10*3/uL Absolute Nucleated RBC (0.0-0.012) X10*3/uL Nucleated RBC % (auto) (0.0-0.2) /100WBC D-Dimer High Sensitivty 336 NG/ML Sodium 142 (135-145) mmol/L Potassium 3.4 (3.3-5.1) mmol/L Chloride 100 (96-108) mmol/L Carbon Dioxide 26 (22-29) mmol/L Anion Gap 19 (12-20) BUN 22 H (9-16) mg/dL Creatinine 0.89 (0.5-1.4) mg/dL Estim Creat Clear Calc 90.5 Estimated GFR > 60 Random Glucose 105 (60-115) mg/dL Lactic Acid (0.5-2.0) mmol/L Calcium 9.8 (8.4-10.2) mg/dL Total Bilirubin 0.7 (0.0-1.0) mg/dL Direct Bilirubin 0.3 (0.0-0.5) mg/dL AST 28 (5-31) U/L ALT 63 H (0-31) U/L Alkaline Phosphatase 75 (39-117) U/L Troponin I High Sens < 3.5 (<3.5-17.0) ng/L C-Reactive Protein 2.12 H (< or = 0.50) mg/dL Total Protein 8.0 (6.5-8.0) g/dL Albumin 4.7 (3.5-5.0) g/dL Lipase 106 H (8-78) U/L Procalcitonin ng/mL 03/05/22 03/05/22 03/05/22 Range/Units 15:52 15:52 15:52 WBC 9.4 (4.8-10.8) X10*3/uL RBC 5.69 H (4.20-5.50) X10*6/uL Hgb 16.6 H (12.0-16.0) g/dl Hct 50.3 H (37.0-47.0) % MCV 88.4 (80.0-98.0) fL MCH 29.2 (27.0-33.0) pg MCHC 33.0 (31.0-35.0) g/dl RDW 14.0 (11.0-16.0) % Plt Count 347 (160-400) X10*3/uL MPV 9.4 (9.4-12.3) fL Immature Gran % (Auto) 0.3 (0.0-0.4) % Neut % (Auto) 66.9 (45-73) % Lymph % (Auto) 20.4 (20-40) % [place] % (Auto) 6.9 (2-11) % Eos % (Auto) 4.7 H (0-4) % Baso % (Auto) 0.8 (0-2) % Lymph # (Auto) 1.9 (1.2-4.9) X10*3/uL [place] # (Auto) 0.7 (0.1-1.2) X10*3/uL Eos # (Auto) 0.4 (0.0-0.4) X10*3/uL Baso # (Auto) 0.1 (0.0-0.2) X10*3/uL Abs Immat Gran (auto) 0.03 (0.00-0.03) X10*3/uL Absolute Neuts (auto) 6.3 (2.0-8.3) x10*3/uL Absolute Nucleated RBC 0.000 (0.0-0.012) X10*3/uL Nucleated RBC % (auto) 0.0 (0.0-0.2) /100WBC D-Dimer High Sensitivty NG/ML Sodium (135-145) mmol/L Potassium (3.3-5.1) mmol/L Chloride (96-108) mmol/L Carbon Dioxide (22-29) mmol/L Anion Gap (12-20) BUN (9-16) mg/dL Creatinine (0.5-1.4) mg/dL Estim Creat Clear Calc Estimated GFR Random Glucose (60-115) mg/dL Lactic Acid 0.9 (0.5-2.0) mmol/L Calcium (8.4-10.2) mg/dL Total Bilirubin (0.0-1.0) mg/dL Direct Bilirubin (0.0-0.5) mg/dL AST (5-31) U/L ALT (0-31) U/L Alkaline Phosphatase (39-117) U/L Troponin I High Sens (<3.5-17.0) ng/L C-Reactive Protein (< or = 0.50) mg/dL Total Protein (6.5-8.0) g/dL Albumin (3.5-5.0) g/dL Lipase (8-78) U/L Procalcitonin 0.05 ng/mL 03/05/22 Range/Units 17:37 WBC (4.8-10.8) X10*3/uL RBC (4.20-5.50) X10*6/uL Hgb (12.0-16.0) g/dl Hct (37.0-47.0) % MCV (80.0-98.0) fL MCH (27.0-33.0) pg MCHC (31.0-35.0) g/dl RDW (11.0-16.0) % Plt Count (160-400) X10*3/uL MPV (9.4-12.3) fL Immature Gran % (Auto) (0.0-0.4) % Neut % (Auto) (45-73) % Lymph % (Auto) (20-40) % [place] % (Auto) (2-11) % Eos % (Auto) (0-4) % Baso % (Auto) (0-2) % Lymph # (Auto) (1.2-4.9) X10*3/uL [place] # (Auto) (0.1-1.2) X10*3/uL Eos # (Auto) (0.0-0.4) X10*3/uL Baso # (Auto) (0.0-0.2) X10*3/uL Abs Immat Gran (auto) (0.00-0.03) X10*3/uL Absolute Neuts (auto) (2.0-8.3) x10*3/uL Absolute Nucleated RBC (0.0-0.012) X10*3/uL Nucleated RBC % (auto) (0.0-0.2) /100WBC D-Dimer High Sensitivty NG/ML Sodium (135-145) mmol/L Potassium (3.3-5.1) mmol/L Chloride (96-108) mmol/L Carbon Dioxide (22-29) mmol/L Anion Gap (12-20) BUN (9-16) mg/dL Creatinine (0.5-1.4) mg/dL Estim Creat Clear Calc Estimated GFR Random Glucose (60-115) mg/dL Lactic Acid (0.5-2.0) mmol/L Calcium (8.4-10.2) mg/dL Total Bilirubin (0.0-1.0) mg/dL Direct Bilirubin (0.0-0.5) mg/dL AST (5-31) U/L ALT (0-31) U/L Alkaline Phosphatase (39-117) U/L Troponin I High Sens < 3.5 (<3.5-17.0) ng/L C-Reactive Protein (< or = 0.50) mg/dL Total Protein (6.5-8.0) g/dL Albumin (3.5-5.0) g/dL Lipase (8-78) U/L Procalcitonin ng/mL Critical Care Time Critical Care Time Critical Care Time: No Discharge Plan Discharge Clinical Impression: Poison sumac, Cellulitis Chest pain Qualifiers: Chest pain type: precordial pain Qualified Code(s): R07.2 - Precordial pain Patient Disposition: Home, Self-Care Instructions: Chest Pain (ED), Cellulitis (ED), Acute Rash (ED), Chest Wall Pain (ED), Dermatitis (ED), Cold Compress or Soak (ED) Additional Instructions: Take your medications as prescribed. If you were prescribed antibiotics today, it is important that you take your medication to their entirety, do not skip any doses, do not finish them early. Follow-up with your primary care provider this week. Follow-up with OBGYN to further investigate though breast redness/ swelling, or your PCP As soon as possible. Also, follow-up with cardiology if pain does not improve. Return to the emergency department with new or worsening symptoms. Such as fevers, chills, chest pain, shortness of breath, nausea, vomiting, dizziness, headache, vision changes, lethargy In case of emergency call 911 US/US venous duplex LE BI IMPRESSION: 1.? No DVT demonstrated in the bilateral lower extremities. ? 2. There are no focal fluid collections. NM/NM pul perfusion IMPRESSION: Normal pulmonary perfusion scan. ? ? Perfusion-only interpretation reduces both the specificity and the proportion of nondiagnostic readings compared to ventilation and perfusion using modified PIOPED II criteria FINDINGS: Perfusion images: No segmental perfusion defects are present. There is homogeneous/heterogeneous distribution of activity bilaterally. There are no segmental or anatomic appearing perfusion defects present. Prescriptions: New prednisone 20 mg tablet 20 mg PO DAILY 15 Days Qty: 13 0RF Rx Instructions: 40 mg for five days, 20 mg for five days, 10 mg for five days doxycycline hyclate 100 mg capsule 100 mg PO BID 10 Days Qty: 20 0RF famotidine [Pepcid] 20 mg tablet 20 mg PO DAILY Qty: 14 0RF No Action Nexletol 180 mg tablet 180 mg PO DAILY 90 Days Qty: 90 1RF clopidogrel [Plavix] 75 mg tablet 75 mg PO DAILY Qty: 30 5RF Praluent Pen 150 mg/mL pen injector 150 mg subcut Q2W 90 Days Qty: 7 3RF Rx Instructions: inject into abdomen, thigh, or upper arm (deltoid muscle); rotate sites furosemide 40 mg tablet 80 mg PO DAILY potassium chloride 20 mEq tablet,ER particles/crystals 20 meq PO BID furosemide 40 mg tablet 40 mg PO BEDTIME levothyroxine [Synthroid] 175 mcg tablet 175 mcg PO DAILY aspirin [Adult Aspirin Regimen] 81 mg tablet,delayed release (DR/EC) 81 mg PO DAILY Referrals: Rasta Ruelas PA [Primary Care Provider] - 2 days [facility] [place] [facility] [Provider Group] - 1 week Stand Alone Forms: Work/School Release
[2022-03-05] MEDS: 0.9 % Sodium Chloride 1,000 ML 999 ML IV (17:33)
[2022-03-05 18:12] LABS: Troponin-I High Sensitivity < 3.5 ng/L (<3.5-17.0)
[2022-03-05 19:36] VITALS: BP 131/80; PULSE 69; RESP 16; TEMP 36.7; O2SAT 98
[2022-03-05 20:57] VITALS: BP 132/79; PULSE 89; RESP 16; O2SAT 99
== END 2022-03-05 20:59 | disposition home or self-care (01) ==
PROVIDERS: Emergency Medicine; Emergency Provider Emergency Medicine; PCP Physician Assistant Medical
DX: R07.2 Precordial pain (principal); L23.7 Allergic contact dermatitis due to plants, except food; L03.90 Cellulitis, unspecified; R79.1 Abnormal coagulation profile; E78.5 Hyperlipidemia, unspecified; Z86.73 Personal history of transient ischemic attack (TIA), and cerebral infarction without residual deficits; Z79.82 Long term (current) use of aspirin; Z79.899 Other long term (current) drug therapy; Z90.49 Acquired absence of other specified parts of digestive tract; Z90.710 Acquired absence of both cervix and uterus
CPT/HCPCS: 36415; 71045; 71275; 78580; 80048; 80076; 83605; 83690; 84145; 84484; 85025; 85379; 86140; 87040; 93005; 93970; 99285; A9540; Q9967

== ENCOUNTER → 2022-03-14 07:59 | Outpatient (REF) | payer OTHER, SELFPAY ==
--- NOTE | ~2022-03-14 | NM_ITS ---
EXERCISE MYOCARDIAL PERFUSION STUDY INDICATION: Coronary artery disease, assess for ischemia TECHNIQUE: The patient was brought in for an exercise perfusion study on 03/14/2022. Patient performed exercise as per Luther protocol and was injected 35 mCi of sestamibi once target heart rate was achieved. Images were obtained using the SPECT gamma camera interlaced with the gating device. Images were obtained in supine position. Resting perfusion study was performed on 03/15/2022. Patient was administered 35 mCi of sestamibi intravenously at rest. Images were then obtained in supine position. Total DLP 140mGy-cm. Images were processed with the software and compared side to side in short axis, horizontal long axis and vertical long axis views. FINDINGS: Raw images were reviewed. The stress perfusion study showed no significant perfusion abnormality. Both uncorrected as well as CT attenuation corrected images were reviewed. The gated study shows normal LV systolic function with calculated LVEF of 71%. LV cavity is normal in size. The gated study shows normal wall thickening and contraction of segments. Resting study shows no significant perfusion abnormality. Gating at rest reveals normal wall motion with ejection fraction at 61%. The findings are consistent with no reversible or fixed perfusion abnormality. NM/NM nahomy perf SPECT rest & str IMPRESSION: 1. Myocardial perfusion imaging study shows normal myocardial perfusion. 2. Gated LVEF is 71% during stress and 61% during rest. 3. Transient ischemic dilatation not present. EKG component of the test reported separately.
--- NOTE | 2022-03-14 08:03 | CA_ITS ---
Acquisition Time: 2022-03-14 08:09:19 Total Exercise Time: 00:07:31 Test Indications: Chest Pain Medications: Protocol: NIRALI Max HR: 144 BPM 88% of Pred: 162 BPM Max BP: 142/078 mmHG Max Work Load: 9.3 METS Exercise stres test with exercise 7 min 31 sec of Nirali protocol, with report of fatigue, moderate shortness of breath and 4/10 chest heaviness, with isolated PVC, with normotensive response to exercise, without EKG changes meeting criteria for ischemia. In recovery her symptoms quickly resolved. Nuclear images pending. Test reviewed with Dr Norman. Referred By: Matheus Krause Overread By: BRUNO MELTON
== END ==
LOC: HO.CARD 07:59
PROVIDERS: Visit Provider Internal Medicine Cardiovascular Disease
DX: R07.9 Chest pain, unspecified (principal)
CPT/HCPCS: 78452; 93017; A9500

== ENCOUNTER 2022-11-22 11:13 | Emergency (ER) | payer OTHER, SELFPAY ==
[2022-11-22 11:18] VITALS: BP 136/81; PULSE 72; RESP 18; TEMP 36.8; O2SAT 98; BMI 32.5
--- NOTE | 2022-11-22 11:18 | ED_ITS ---
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 Patient states that she had a thyroidectomy w/ radiation therapy in 2003 for thyroid cancer and has been on lasix 40mg in the morning and 20mg at night since this time. She reports taking 20mg of potassium BID. No missed doses. The patient went for fasting labs this morning and was advised to come to the ED when her potassium returned at 2.9. She reports previous episodes of hypokalemia in which she will typically get palpiations. She currently denies any specific symptoms however feels generally unwell and fatigued. Denies nausea, vomiting, myalgias, palpiations, c hest pain, or shortness of breath. MD complaint: abnormal lab Treatments prior to arrival: none Related Data Home Medications Medication Instructions Recorded Confirmed aspirin 81 mg tablet,delayed 81 mg PO DAILY 04/17/21 05/22/22 release (Adult Aspirin Regimen) levothyroxine 175 mcg tablet 175 mcg PO DAILY 04/17/21 05/22/22 (Synthroid) potassium chloride 20 mEq 20 meq PO BID 04/17/21 05/22/22 tablet,extended release(part/cryst) furosemide 40 mg tablet 40 mg PO TID 05/22/22 05/22/22 Previous Rx's Medication Instructions Recorded clopidogrel 75 mg tablet (Plavix) 75 mg PO DAILY #30 tabs 11/07/21 alirocumab 75 mg/mL subcutaneous 75 mg subcut Q14D 90 days #7 mL 03/19/22 pen injector Allergies Allergy/AdvReac Type Severity Reaction Status Date / Time ezetimibe [From Zetia] Allergy Severe abdominal Verified 05/09/21 09:43 pain Awmfkeb-QXD-LqT Reductase Allergy Severe Muscle Pain Verified 04/25/21 11:08 Inhibitor atenolol Allergy Mild Palpitation Verified 04/25/21 11:10 s adhesive tape Allergy rash Verified 04/17/21 09:38 gabapentin [From Neurontin] Allergy Blurry Verified 04/25/21 11:11 Vision hydrocodone [From Vicodin] Allergy Vomiting Verified 04/25/21 11:11 hydromorphone [From Dilaudid] Allergy Vomiting Verified 04/25/21 11:09 meperidine [From Demerol] Allergy Vomiting Verified 04/25/21 11:06 morphine Allergy Vomiting Verified 04/25/21 11:05 oxycodone [From Percocet] Allergy Vomiting Verified 04/25/21 11:05 Sulfa (Sulfonamide Allergy Hives Verified 04/25/21 11:05 Antibiotics) Review of Systems Review of Systems: Yes all other systems are reviewed and are negative [facility] Past Medical History Medical History Allergy to statin medication Ductal carcinoma in situ (DCIS) of breast Hyperlipidemia Thoracic aorta atherosclerosis TIA (transient ischemic attack) Surgical History Hx of abdominal surgery Hx of breast surgery Hx of cholecystectomy Hx of hernia repair Hx of hysterectomy Hx of knee surgery Hx of thyroidectomy Family History Family History Father CVD (cardiovascular disease) Mother No problems noted. Brother CVD (cardiovascular disease) Social History Social History Alcohol intake: never Patient Tobacco Use Status: Never used Tobacco Smoked in Last 30 Days: No Use of substances other than those prescribed or required for medical reasons: No Advance Directives: No Advance Directives Information Provided: No Patient : No Physical Exam ED Vital Signs: Vital Signs - 24 hr 11/22/22 11:18 11/22/22 12:36 11/22/22 14:38 Temperature 98.3 F 98.1 F 98.0 F Pulse Rate 72 63 68 Respiratory Rate 18 16 12 Blood Pressure 136/81 130/74 131/78 Pulse Oximetry 98 96 97 Oxygen Delivery Method Room Air Room Air Room Air 11/22/22 16:25 Temperature 98.2 F Pulse Rate 69 Respiratory Rate 13 Blood Pressure 114/68 Pulse Oximetry 96 Oxygen Delivery Method Room Air BMI result Body Mass Index 32.5 Vital signs stable Appearance: Alert. Oriented X3. No acute distress. Head: normocephalic, atraumatic. Eyes: Pupils equal, round and reactive to light. ENT: Pharynx normal. No tonsillar swelling or exudate. Neck: Normal inspection. Neck supple. CVS: Normal heart rate and rhythm. Pulses normal. Respiratory: No respiratory distress. Breath sounds normal. Abdomen: Soft and nontender. +BS x4 Skin: Skin warm and dry. Normal skin color. Normal skin turgor. No rashes. Extremities: No lower extremity edema. No joint swelling. Neuro/psych: Oriented X 3. No motor deficit. No sensory deficit. CN II-XII intact. Normal speech and cognition. Course Course Course Narrative: RME performed by Jojo Ray PA-C. Patient is a 57 year old assigned female at presenting to the emergency department with low potassium. Patient states that she had lab work done and they called her and told her that her potassium was 2.9. Patient states that she has been feeling generally unwell and has a cardiac history. Labs ordered. Patient placed back in the waiting room pending room availability and results. Reevaluation(s) Reevaluation #1: k 2.9. no ekg changes. no ongoing gi losses. likely due to lasix given 40 meq PO x1, repeat oral dose pending while getting 10 meq iv x2 will repeat labs after all PO and IV k administered. physician observation pending repeat labs. anticipate d/c home Time: 14:53 Reevaluation #2: Patient's potassium improved to 3.1, she is asymptomatic, may continue with oral supplementation Time: 19:01 Medications Administered Discontinued Medications Generic Name Dose Route Start Last Admin Trade Name Freq PRN Reason Stop Dose Admin Potassium Chloride 10 meq in 100 mls @ 100 mls/hr 11/22/22 12:30 11/22/22 15:56 Potassium Chloride/H20 IV 11/22/22 14:29 100 mls/hr Q1H CHERELLE Administration Sodium Chloride 500 mls @ 500 mls/hr 11/22/22 14:15 11/22/22 14:33 Ns IV 11/22/22 15:14 500 mls/hr .Q1H CHERELLE Administration Potassium Chloride 40 meq 11/22/22 12:00 11/22/22 13:22 Potassium Chloride Er 20 Meq Tab.Er.Prt PO 11/22/22 12:01 40 meq ONCE ONE Administration Potassium Chloride 40 meq 11/22/22 14:30 11/22/22 15:55 Potassium Chloride Er 20 Meq Tab.Er.Prt PO 11/22/22 14:31 40 meq ONCE ONE Administration Medical Decision Making Medical Decision Making [facility] Narrative: 57 year old female with a past medical history significant for familial HDL, hx of mobile transverse aorta plaque, prior right breast ductal carcinoma in situ, thyroid carcinoma, and multiple TIAs presents to the ED today with low potassium. Patient currently on praluent for HDL and dual antiplatelet therapy f or cardiac hx. Vital signs stable. Cardiac exam with regular rate and rhythm. No peripheral edema. CBC unremarkable. Chemistry significant for a K+ of 2.9 and calcium of 10.4. Magnesium within normal limits. Will replete potassium PO and IV and re-check labs in a few hours. Differential Diagnosis Differential Diagnoses: The differential diagnosis associated with the presentation includes Hypokalemia d/t GI loss, diuretics, dehydration, malabsorption, or missed PO K+ supplementation Lab Data [facility] Lab Attestation statement: I reviewed the patient's lab results. CBC unremarkable. Chemistry significant for a K+ of 2.9 and calcium of 10.4. 11/22/22 11:43 11/22/22 11:43 Labs: Lab Results 11/22/22 11/22/22 11/22/22 Range/Units 11:43 11:43 17:58 WBC 7.0 (4.8-10.8) X10*3/uL RBC 4.99 (4.20-5.50) X10*6/uL Hgb 14.3 (12.0-16.0) g/dl Hct 43.2 (37.0-47.0) % MCV 86.6 (80.0-98.0) fL MCH 28.7 (27.0-33.0) pg MCHC 33.1 (31.0-35.0) g/dl RDW 13.3 (11.0-16.0) % Plt Count 389 (160-400) X10*3/uL MPV 9.5 (9.4-12.3) fL Immature Gran % (Auto) 0.1 (0.0-0.4) % Neut % (Auto) 63.9 (45-73) % Lymph % (Auto) 20.9 (20-40) % Kimball % (Auto) 10.6 (2-11) % Eos % (Auto) 3.6 (0-4) % Baso % (Auto) 0.9 (0-2) % Lymph # (Auto) 1.5 (1.2-4.9) X10*3/uL Kimball # (Auto) 0.7 (0.1-1.2) X10*3/uL Eos # (Auto) 0.3 (0.0-0.4) X10*3/uL Baso # (Auto) 0.1 (0.0-0.2) X10*3/uL Abs Immat Gran (auto) 0.01 (0.00-0.03) X10*3/uL Absolute Neuts (auto) 4.5 (2.0-8.3) x10*3/uL Absolute Nucleated RBC 0.000 (0.0-0.012) X10*3/uL Nucleated RBC % (auto) 0.0 (0.0-0.2) /100WBC Sodium 142 142 (135-145) mmol/L Potassium 2.9 L 3.1 L (3.3-5.1) mmol/L Chloride 98 100 (96-108) mmol/L Carbon Dioxide 33 H 36 H (22-29) mmol/L Anion Gap 14 9 L (12-20) BUN 25 H 23 H (9-16) mg/dL Creatinine 0.79 0.78 (0.5-1.4) mg/dL Estim Creat Clear Calc 96.4 97.6 Estimated GFR > 60 > 60 Random Glucose 99 120 H (60-115) mg/dL Calcium 10.4 H D 9.8 (8.4-10.2) mg/dL Magnesium 2.4 (1.6-2.6) mg/dL Total Bilirubin 0.6 (0.0-1.0) mg/dL AST 18 (5-31) U/L ALT 26 (0-31) U/L Alkaline Phosphatase 81 (39-117) U/L Total Protein 7.3 (6.5-8.0) g/dL Albumin 4.3 (3.5-5.0) g/dL Independent Interpretation I performed an independent interpretation of an: EKG Interpretation: EKG: Rate 70 bpm, NSR, no U waves or flattened T waves External Record Review External record reviewed: Prior outpatient labs Prescription Management I considered prescription management with: Other (additional potassium supplementation) Discharge Plan Discharge Clinical Impression: Hypokalemia Patient Disposition: Home, Self-Care Instructions: Potassium Content of Foods List (ED), Hypokalemia (ED) Additional Instructions: continue your oral potassium supplements over the weekend recommend increasing your morning dose to 40 meQ follow up with your primary care doctor on Friday for repeat lab work Prescriptions: No Action clopidogrel [Plavix] 75 mg tablet 75 mg PO DAILY Qty: 30 5RF alirocumab 75 mg/mL pen injector 75 mg subcut Q14D 90 Days Qty: 7 3RF furosemide 40 mg tablet 40 mg PO TID potassium chloride 20 mEq tablet,ER particles/crystals 20 meq PO BID levothyroxine [Synthroid] 175 mcg tablet 175 mcg PO DAILY aspirin [Adult Aspirin Regimen] 81 mg tablet,delayed release (DR/EC) 81 mg PO DAILY Referrals: Rasta Ruelas PA [Primary Care Provider] -
--- NOTE | 2022-11-22 11:19 | ECG_ITS ---
Test Reason : abn labs Blood Pressure : / mmHG Vent. Rate : 070 BPM Atrial Rate : 070 BPM P-R Int : 182 ms QRS Dur : 100 ms QT Int : 410 ms P-R-T Axes : 037 -11 015 degrees QTc Int : 442 ms Normal sinus rhythm Normal ECG When compared with ECG of 05-MAR-2022 14:06, No significant change was found Referred By: Jojo Ray Electronically Signed By:JAIME MYERS MD
[2022-11-22 11:48] LABS: MANUAL DIFF FLAG NO
[2022-11-22 11:51] LABS: Basophils Absolute Auto 0.1 X10*3/uL (0.0-0.2); Basophils Percent Auto 0.9 % (0-2); Eosinophils Absolute Auto 0.3 X10*3/uL (0.0-0.4); Eosinophils Percent Auto 3.6 % (0-4); Hematocrit 43.2 % (37.0-47.0); Hemoglobin 14.3 g/dl (12.0-16.0); Imm Gran Abs Auto 0.01 X10*3/uL (0.00-0.03); Imm Gran Pct Auto 0.1 % (0.0-0.4); Lymphocytes Absolute Auto 1.5 X10*3/uL (1.2-4.9); Lymphocytes Percent Auto 20.9 % (20-40); Mean Corpuscular HGB Conc 33.1 g/dl (31.0-35.0); Mean Corpuscular Hemoglobin 28.7 pg (27.0-33.0); Mean Corpuscular Volume 86.6 fL (80.0-98.0); Mean Platelet Volume 9.5 fL (9.4-12.3); Monocytes Absolute Auto 0.7 X10*3/uL (0.1-1.2); Monocytes Percent Auto 10.6 % (2-11); Neutrophils Absolute Auto 4.5 x10*3/uL (2.0-8.3); Neutrophils Percent Auto 63.9 % (45-73); Platelet Count 389 X10*3/uL (160-400); Red Blood Count 4.99 X10*6/uL (4.20-5.50); Red Cell Distribution Width 13.3 % (11.0-16.0)
[2022-11-22 12:14] LABS: Alanine Aminotransferase 26 U/L (0-31); Albumin Level 4.3 g/dL (3.5-5.0); Alkaline Phosphatase 81 U/L (39-117); Anion Gap 14 (12-20); Aspartate Amino Transferase 18 U/L (5-31); Bilirubin Total 0.6 mg/dL (0.0-1.0); Blood Urea Nitrogen 25 mg/dL (9-16); Calcium 10.4 mg/dL (8.4-10.2); Carbon Dioxide 33 mmol/L (22-29); Chloride 98 mmol/L (96-108); Creatinine Clr Calc Pharmacy 96.4; Estimated Glomerular Filt Rate > 60; Glucose Random 99 mg/dL (60-115); Magnesium 2.4 mg/dL (1.6-2.6); Potassium 2.9 mmol/L (3.3-5.1); Sodium 142 mmol/L (135-145); Total Protein 7.3 g/dL (6.5-8.0)
[2022-11-22 12:36] VITALS: BP 130/74; PULSE 63; RESP 16; TEMP 36.7; O2SAT 96
[2022-11-22] MEDS: Potassium Chloride ER 20 MEQ TAB.ER.PRT 40 MEQ PO ×2 (13:22→15:55)
[2022-11-22] MEDS: Potassium Chloride/H20 10 MEQ/100 ML PIGGYBACK 100 MEQ IV ×2 (14:23→15:56)
[2022-11-22] MEDS: 0.9 % Sodium Chloride 500 ML IV (14:33)
[2022-11-22 14:38] VITALS: BP 131/78; PULSE 68; RESP 12; TEMP 36.7; O2SAT 97
--- NOTE | 2022-11-22 16:23 | PC.NURSE ---
pt is caox4 and in no disress. pt remians nsr in lead 2 with strong rdial pulses and nonlabored resps no peripheral edema is noted. plan is to recheck electrolytes after iv potassium infusion is complicated by discomfort regarding infusion.
[2022-11-22 16:25] VITALS: BP 114/68; PULSE 69; RESP 13; TEMP 36.8; O2SAT 96
[2022-11-22 18:22] LABS: Anion Gap 9 (12-20); Blood Urea Nitrogen 23 mg/dL (9-16); Calcium 9.8 mg/dL (8.4-10.2); Carbon Dioxide 36 mmol/L (22-29); Chloride 100 mmol/L (96-108); Creatinine Clr Calc Pharmacy 97.6; Estimated Glomerular Filt Rate > 60; Glucose Random 120 mg/dL (60-115); Potassium 3.1 mmol/L (3.3-5.1); Sodium 142 mmol/L (135-145)
--- NOTE | 2022-11-22 18:50 | PC.NURSE ---
assumed care of pt no apparent distress resting quietly
[2022-11-22 19:31] VITALS: BP 116/81; PULSE 82; RESP 16; TEMP 36.7; O2SAT 96
--- NOTE | 2022-11-22 19:33 | PC.NURSE ---
VSS IV cath removed no apparent distress aox4
--- NOTE | 2022-11-22 19:39 | PC.NURSE ---
Discharge instructions given/explained to pt No apparent distress aox4 ambulates safely and independently
== END 2022-11-22 19:41 | disposition home or self-care (01) ==
PROVIDERS: Physician Assistant; Physician Assistant Medical; Emergency Provider Emergency Medicine; PCP Physician Assistant Medical
DX: E87.6 Hypokalemia (principal); Z86.73 Personal history of transient ischemic attack (TIA), and cerebral infarction without residual deficits; E78.5 Hyperlipidemia, unspecified; Z79.899 Other long term (current) drug therapy
CPT/HCPCS: 36415; 80048; 80053; 83735; 85025; 93005; 96365; 96366; 99285

== ENCOUNTER 2023-06-25 11:17 | Outpatient (AMB) | payer OTHER, SELFPAY ==
[2023-06-25 11:36] VITALS: BP 134/82; PULSE 71; BMI 33.9
--- NOTE | 2023-06-25 11:36 | MHC.OFFVIS ---
Intake Vital Signs 06/25/23 11:36 Height 5 ft 9 in Weight 229 lb 4.492 oz BMI 33.9 BP 134/82 Blood Pressure Location Lt brachial Position Sitting Pulse 71 Intake Visit Reasons: 1 yr f/up Intake Note: 1 year follow-up had some facial numbness after stopping plavic x2 but feeling ok clearance need for leg surgery Donor Services Specialist Required: No Allergies ezetimibe [From Zetia] Allergy (Severe, Verified 04/03/23 16:29) abdominal pain Ebdqzmr-WJM-DxQ Reductase Inhibitor Allergy (Severe, Verified 04/03/23 16:29) Muscle Pain atenolol Allergy (Mild, Verified 04/03/23 16:29) Palpitations adhesive tape Allergy (Verified 04/03/23 16:29) rash gabapentin [From Neurontin] Allergy (Verified 04/03/23 16:29) Blurry Vision hydrocodone [From Vicodin] Allergy (Verified 04/03/23 16:29) Vomiting hydromorphone [From Dilaudid] Allergy (Verified 04/03/23 16:29) Vomiting meperidine [From Demerol] Allergy (Verified 04/03/23 16:29) Vomiting morphine Allergy (Verified 04/03/23 16:29) Vomiting oxycodone [From Percocet] Allergy (Verified 04/03/23 16:29) Vomiting Sulfa (Sulfonamide Antibiotics) Allergy (Verified 04/03/23 16:29) Hives Medication List - Last Reconciled 06/25/23 by Matheus Krause MD alirocumab (Praluent Pen) 75 mg subcut Q2W aspirin (Adult Aspirin Regimen) 81 mg PO DAILY furosemide 40 mg PO TID levothyroxine (Synthroid) 175 mcg PO DAILY potassium chloride ER 20 mEq PO BID HPI HPI Comments History of Present Illness Details Leydi comes for follow-up. She was taken of Plavix in April. Few weeks after taking her of the Plavix she notices some central facial numbness along with numbness of her mouth and she got really concerned and then she had some pressure in the precordial area. This symptoms lasted for few minutes. She is worried it she was having recurrent TIA/stroke. She has been taking all her medications. She also had other similar minor episode a week or 2 later. No symptoms since then. No focal motor neurologic deficits or yuliana facial symptoms. She denies any exertional chest pain although says she has not been able to exercise much due to her left hip replacement which was displaced and has to undergo surgery in the coming couple of weeks. She has been taking all her medications. No recent lipid panel. She was noted in the last 6 months to be hypokalemic and is currently getting potassium supplements. [facility] Medical History Ductal carcinoma in situ (DCIS) of breast Thoracic aorta atherosclerosis Allergy to statin medication Hyperlipidemia TIA (transient ischemic attack) Surgical History Hx of thyroidectomy Hx of breast surgery Hx of hernia repair Hx of abdominal surgery Hx of cholecystectomy Hx of hysterectomy Hx of knee surgery Family History Father CVD (cardiovascular disease) Mother No problems noted. Brother CVD (cardiovascular disease) Social History Alcohol intake: never Patient Tobacco Use Status: Never used Tobacco Review of Systems Const Denies chills, Denies fatigue, Denies fever(s), Denies frequent falls, Denies weakness, Denies weight gain and Denies weight loss ENT Denies dizziness Card Denies chest pain, Denies leg edema, Denies lightheadedness, Denies palpitations, Denies dyspnea, Denies dyspnea on exertion, Denies orthopnea and Denies other (loss of consciousness) Resp Denies cough, Denies dyspnea and Denies dyspnea on exertion GI Denies hematochezia and Denies change in stool character Musc Denies abnormal gait, Denies muscle weakness, Denies numbness, Denies radiating pain into limb and Denies tingling Neuro Denies Abnormal speech present, Denies abnormal gait, Denies dizziness, Denies frequent falls, Denies numbness, Denies tingling and Denies weakness Endo Denies fatigue and Denies palpitations Physical Exam Vital Signs: Last Vital Signs Pulse 71 06/25/23 11:36 BP 134/82 06/25/23 11:36 BMI result Body Mass Index 33.9 Const General: cooperative, comfortable, no acute distress, alert, awake and well groomed Nutritional Appearance: obese Orientation/consciousness: patient oriented x3 Limitations: no limitations Neck Neck: Yes trachea midline, Yes supple and Yes no JVD Resp Effort & Inspection: normal respiratory effort Auscultation: clear to auscultation bilaterally Cardio Jugular venous distension: no JVD Palpation: normal PMI Rate: regular rate Rhythm: regular rhythm Heart sounds: S1 normal heart sound present, S2 normal heart sound present, no click, no gallops, no murmurs and no rubs GI Auscultation: normal bowel sounds Skin General skin exam: no rashes or lesions noted Neuro General: patient oriented x3 and no focal motor deficits Speech: No Abnormal speech present Extrem General: Yes no clubbing, cyanosis or edema Psych Appearance: grossly normal Office Procedures EKG Details: EKG shows normal sinus rhythm with nonspecific T-wave changes with mildly prolonged QTC interval [id number], Complete Assessment & Plan Assessment & Plan (1) Hyperlipidemia: Code(s): E78.5 - Hyperlipidemia, unspecified Plan: Patient prior TIA with thoracic aortic atherosclerosis status post prolonged treatment dual antiplatelet therapy. She had transient symptoms of central facial numbness which are not likely inventory representative of neurologic ischemia. Probably related to anxiety. Continue low-dose aspirin therapy for life. Continue aggressive lipid modification, currently on Praluent therapy. Will represcribed the same. Requires lipid panel at least once a year. I strongly recommend her to have lipid panel along with CRP in near future. Continue aggressive blood pressure control. Her chest pressure associated facial numbness or most likely related to anxiety. She had myocardial perfusion imaging within last year which was within normal limits. (2) Preoperative cardiovascular examination: Code(s): Z01.810 - Encounter for preprocedural cardiovascular examination Plan: Preoperative cardiovascular risk stratification for redo hip surgery under general anesthesia. She had negative myocardial perfusion imaging last year with no recurrent exertional symptoms. She is currently optimized to undergo surgery with low to intermediate risk. Continue all medical therapy except for aspirin. Will follow up in 1 year's time, sooner p.r.n.. Thank you for allowing me to partake in the care Coding Level of Care Code Est Pt Level 3 (42120) Diagnoses Hyperlipidemia E78.5 Preoperative cardiovascular examination Z01.810 CPT Codes EKG - CPT: 57183-[id number], Complete ([id number])
== END 2023-06-25 12:07 | disposition home or self-care (01) ==
LOC: HO.HCS 11:17
PROVIDERS: PCP Physician Assistant Medical; Visit Provider Internal Medicine Cardiovascular Disease
DX: E78.5 Hyperlipidemia, unspecified (principal); Z01.810 Encounter for preprocedural cardiovascular examination
CPT/HCPCS: 93010; 99213

== ENCOUNTER → 2023-06-25 11:17 | Outpatient (BNVA) | payer OTHER, SELFPAY | PROVIDERS: PCP Physician Assistant Medical; Visit Provider Internal Medicine Cardiovascular Disease | DX: Z01.810 Encounter for preprocedural cardiovascular examination (principal); E78.5 Hyperlipidemia, unspecified | CPT/HCPCS: 93005 ==

== ENCOUNTER 2024-04-16 11:49 | Emergency (ER) | payer OTHER, SELFPAY ==
--- NOTE | ~2024-04-16 | XR_ITS ---
EXAMINATION: XR CHEST CLINICAL INFORMATION: Chest pain, tightness. COMPARISON: CTA chest dated 03/05/2022. TECHNIQUE: 2 views of the chest were obtained. FINDINGS: The lungs are clear. The cardiomediastinal silhouette is normal in size. There is no pleural effusion or pneumothorax. No acute osseous abnormality. XR/XR chest 2V IMPRESSION: No acute cardiopulmonary findings. Electronically signed by: Kalin Brown MD 04/16/2024 01:47 PM EDT
--- NOTE | 2024-04-16 11:52 | ECG_ITS ---
Test Reason : cp Blood Pressure : / mmHG Vent. Rate : 073 BPM Atrial Rate : 073 BPM P-R Int : 182 ms QRS Dur : 100 ms QT Int : 416 ms P-R-T Axes : 031 -18 003 degrees QTc Int : 458 ms Normal sinus rhythm Minimal voltage criteria for LVH, may be normal variant ( [place] product ) Borderline ECG No previous ECGs available Referred By: Generic ED Physician Electronically Signed By:Johann Campos
[2024-04-16 12:06] VITALS: BP 142/80; PULSE 82; RESP 18; TEMP 36.6; O2SAT 97; BMI 35.4
--- NOTE | 2024-04-16 12:07 | ED_ITS ---
HPI - Chest Pain General Chief Complaint: Chest Pain Stated Complaint: cp Time Seen by Provider: 04/16/24 13:43 Source: patient Mode of arrival: ambulatory Limitations: no limitations History of Present Illness ED Provider: Jojo Ray PA-C HPI narrative: Patient is a 59 year old assigned female at with a history of HLD, PVCs, TIA, and pleurisy presenting to the emergency department today with left sided chest pain. Patient states that over the last 2 weeks she has had intermittent chest pain on the left side that is worse with deep breathing. Patient denies any dizziness, lightheadedness, abdominal pain, nausea, vomiting, fever, chills, blurry vision, double vision, loss of vision, difficulty breathing, shortness of breath, back pain, night sweats, pain with urination, increased urinary frequency, increased urinary urgency, blood in her urine or stool, syncope or a near syncopal episode, recent trauma or falls, bowel incontinence, bladder incontinence, or any other complaints at this time. Related Data Home Medications ?Medication ?Instructions ?Recorded ?Confirmed aspirin 81 mg tablet,delayed 81 mg PO DAILY 04/17/21 06/25/23 release (Adult Aspirin Regimen) levothyroxine 175 mcg tablet 175 mcg PO DAILY 04/17/21 06/25/23 (Synthroid) potassium chloride 20 mEq 20 meq PO BID 04/17/21 06/25/23 tablet,extended release(part/cryst) furosemide 40 mg tablet 40 mg PO TID 05/22/22 06/25/23 Previous Rx's ?Medication ?Instructions ?Recorded alirocumab 75 mg/mL subcutaneous 75 mg subcut Q2W 90 days #7 mL 03/01/24 pen injector (Praluent Pen) Allergies Allergy/AdvReac Type Severity Reaction Status Date / Time ezetimibe [From Zetia] Allergy Severe abdominal Verified 04/16/24 12:09 pain Tzywyib-RMV-KrZ Reductase Allergy Severe Muscle Pain Verified 04/16/24 12:09 Inhibitor atenolol Allergy Mild Palpitation Verified 04/16/24 12:09 s adhesive tape Allergy rash Verified 04/16/24 12:09 gabapentin [From Neurontin] Allergy Blurry Verified 04/16/24 12:09 Vision hydrocodone [From Vicodin] Allergy Vomiting Verified 04/16/24 12:09 hydromorphone [From Dilaudid] Allergy Vomiting Verified 04/16/24 12:09 meperidine [From Demerol] Allergy Vomiting Verified 04/16/24 12:09 morphine Allergy Vomiting Verified 04/16/24 12:09 oxycodone [From Percocet] Allergy Vomiting Verified 04/16/24 12:09 Sulfa (Sulfonamide Allergy Hives Verified 04/16/24 12:09 Antibiotics) Review of Systems 2 Constitutional: Constitutional: Reports no additional constitutional complaints, Denies chills, Denies fever(s) and Denies night sweats Eyes: Eyes: Reports no additional eye complaints, Denies blurry vision, Denies change in vision, Denies diplopia, Denies eye discharge, Denies loss of vision and Denies eye pain ENT: Denies dizziness Cardiovascular: Cardiovascular: Reports no additional cardiovascular complaints, Reports chest pain, Denies lightheadedness, Denies Loss of Consciousness and Denies dyspnea Respiratory: Respiratory: Reports no additional respiratory complaints and Denies dyspnea Gastrointestinal: Gastrointestinal: Reports no additional gastrointestinal complaints, Denies abdominal pain, Denies melena, Denies hematochezia, Denies change in bowel habits and Denies change in stool character Genitourinary: Genitourinary: Denies hematuria, Denies urinary frequency, Denies dysuria, Denies urinary incontinence, Denies urinary hesitancy and Denies urinary urgency Musculoskeletal: Musculoskeletal: Reports no additional musculoskeletal complaints, Denies numbness and Denies tingling Neurologic: Denies dizziness, Denies loss of vision, Denies numbness and Denies tingling Psychiatric: Psychiatric: Reports no additional psychiatric complaints Endocrine: Endocrine: Reports no additional endocrine complaints Hematologic/Lymphatic: Hematologic/Lymphatic: Reports no additional hematologic/lymphatic complaints Allergic/Immunologic: Allergic/Immunologic: Reports no additional allergic/immunologic complaints [facility] Past Medical History Attestation statement: The following information was validated with the patient. Source: old records reviewed and nursing notes reviewed Medical History Ductal carcinoma in situ (DCIS) of breast Thoracic aorta atherosclerosis Allergy to statin medication Hyperlipidemia TIA (transient ischemic attack) Surgical History Hx of thyroidectomy Hx of breast surgery Hx of hernia repair Hx of abdominal surgery Hx of cholecystectomy Hx of hysterectomy Hx of knee surgery Family History Family History Father CVD (cardiovascular disease) Mother No problems noted. Brother CVD (cardiovascular disease) Social History Social History Alcohol intake: never Patient Tobacco Use Status: Never used Tobacco Advance Directives: No Advance Directives Information Provided: Yes Physical Exam 2 Vital Signs: Vital Signs: Last Vital Signs Temp 97.8 F 04/16/24 12:06 Pulse 82 04/16/24 12:06 Resp 18 04/16/24 12:06 BP 142/80 H 04/16/24 12:06 Pulse Ox 97 04/16/24 12:06 O2 Del Method Room Air 04/16/24 12:06 BMI result Body Mass Index 35.4 Const: General: cooperative, no acute distress, alert and awake Nutritional Appearance: well nourished Orientation/consciousness: patient oriented x3 Limitations: no limitations HEENT: Head: Yes normal to inspection and Yes atraumatic Ears: hearing grossly normal bilaterally and external ears normal General nose exam: Normal external nose present, no nasal discharge noted and no epistaxis Face and sinus: Yes normal facial exam, No abrasion and No laceration Mouth: Normal oral and palatal mucosa present, no drooling and no muffled voice Eyes: General: appearance normal, both eyes and all related structures P eriorbital: periorbital findings normal Eyelids: Yes eyelids normal C onjunctivae: conjunctivae normal Pupils: Equal, round and reactive pupils present EOM: EOMs intact bilaterally Neck: Neck: Yes normal visual inspection, Yes full ROM and Yes no lymphadenopathy Chest: Chest palpation & inspection: normal inspection of the chest Resp: Effort & Inspection: normal respiratory effort and able to speak in complete sentences GI: Inspection: Yes normal to inspection Neuro: General: patient oriented x3 and moves all extremities Cranial nerves: Yes Equal, round and reactive pupils present Cognition (Neuro): n ormal cognition Extrem: General: Yes normal to inspection, Yes full ROM and Yes capillary refill normal Psych: Appearance: grossly normal Mental Status: mental status grossly normal Affect: normal affect Attitude: cooperative Thought process: N ormal thought process present Thought content: Normal thought content present Insight: Good insight present (Psych) Course Course Course Narrative: This is an RME performed by Amna Ramirez CNP: Additional HPI, ROS, PE not included below will be deferred to primary provider. Patient is a 59-year-old female who presents emergency department for evaluation of intermittent pain to the left chest described as sharp and stabbing pain at times other times a heaviness and a pressure. Episode today to the left anterior chest much worse and lasting longer. Plan: ECG, serum labs, CXR Medical Decision Making Medical Decision Making [facility] Narrative: Patient is a 59 year old assigned female at with a history of pleurisy, HLD, and TIA presenting to the emergency department today with intermittent left sided chest pain over the last 2 weeks that is worse with deep breathing. Patient's physical exam was unremarkable. Patient's blood work was unremarkable. Patient's EKG was unremarkable. Patient's chest x-ray showed no acute process. I explained my physical exam findings as well as all test results to the patient. I answered all questions asked by the patient. I stressed the importance of the patient taking her medication as directed (either prescribed or as the over the counter packaging recommends). I stressed the importance of the patient following up with her primary care provider. I stressed the importance of the patient returning to the emergency department immediately if her symptoms were to worsen or if she were to develop any dizziness, shortness of breath, difficulty breathing, chest pain, blurry vision, loss of vision, nausea, vomiting, abdominal pain, fever, chills, back pain, or any other complaints. Patient verbalized agreement and understanding with this treatment plan and discharge. Differential Diagnosis Differential Diagnoses: The differential diagnosis associated with the presentation includes NSTEMI STEMI Chest pain Pleurisy Costochondritis Admission/Observation Consideration of admission/observation: Escalation of care including admission/observation considered Patient would have been admitted to the hospital had her work up had any findings where hospital admission was appropriate and her clinical presentation warranted hospital admission. Lab Data [facility] Lab Attestation statement: I reviewed the patient's lab results. My interpretation of these results are in the [facility] Rationale portion of this note. 04/16/24 13:05 04/16/24 13:05 Labs: Lab Results 04/16/24 Range/Units 13:05 WBC 6.6 (4.8-10.8) X10*3/uL RBC 5.26 (4.20-5.50) X10*6/uL Hgb 15.6 (12.0-16.0) g/dl Hct 45.3 (37.0-47.0) % MCV 86.1 (80.0-98.0) fL MCH 29.7 (27.0-33.0) pg MCHC 34.4 (31.0-35.0) g/dl RDW 13.2 (11.0-16.0) % Plt Count 342 (160-400) X10*3/uL MPV 9.5 (9.4-12.3) fL Immature Gran % (Auto) 0.2 (0.0-0.4) % Neut % (Auto) 60.8 (45-73) % Lymph % (Auto) 25.7 (20-40) % Creek % (Auto) 9.7 (2-11) % Eos % (Auto) 3.0 (0-4) % Baso % (Auto) 0.6 (0-2) % Lymph # (Auto) 1.7 (1.2-4.9) X10*3/uL Creek # (Auto) 0.6 (0.1-1.2) X10*3/uL Eos # (Auto) 0.2 (0.0-0.4) X10*3/uL Baso # (Auto) 0.0 (0.0-0.2) X10*3/uL Abs Immat Gran (auto) 0.01 (0.00-0.03) X10*3/uL Absolute Neuts (auto) 4.0 (2.0-8.3) x10*3/uL Absolute Nucleated RBC 0.000 (0.0-0.012) X10*3/uL Nucleated RBC % (auto) 0.0 (0.0-0.2) /100WBC PT 10.4 L (10.9-12.4) SEC INR 0.9 (0.9-1.1) Sodium 144 (135-145) mmol/L Potassium 3.0 L (3.3-5.1) mmol/L Chloride 101 (96-108) mmol/L Carbon Dioxide 32 H (22-29) mmol/L Anion Gap 14 (12-20) BUN 20 H (9-16) mg/dL Creatinine 0.90 (0.5-1.4) mg/dL Estim Creat Clear Calc 86.1 Estimated GFR > 60 Random Glucose 100 (60-115) mg/dL Calcium 9.9 (8.4-10.2) mg/dL Total Bilirubin 0.6 (0.0-1.0) mg/dL AST 25 (5-31) U/L ALT 46 H (0-31) U/L Alkaline Phosphatase 74 (39-117) U/L Troponin I High Sens < 2.7 (<3.5-17.0) ng/L Total Protein 7.7 (6.5-8.0) g/dL Albumin 4.5 (3.5-5.0) g/dL Influenza Type A (PCR) NEGATIVE (Negative) Influenza Type B (PCR) NEGATIVE (Negative) RSV RNA Qual (PCR) NEGATIVE (Negative) SARS-CoV-2 RNA (RT-PCR) NEGATIVE (Negative) Independent Interpretation I performed an independent interpretation of an: EKG and Plain X-Ray Interpretation: My interpretation is in agreement with the radiologist's impression of this imaging study. L EXAMINATION: XR CHEST CLINICAL INFORMATION: Chest pain, tightness. COMPARISON: CTA chest dated 03/05/2022. TECHNIQUE: 2 views of the chest were obtained. FINDINGS: The lungs are clear. The cardiomediastinal silhouette is normal in size. There is no pleural effusion or pneumothorax. No acute osseous abnormality. XR/XR chest 2V IMPRESSION: No acute cardiopulmonary findings. Electronically signed by: Kalin Brown MD 04/16/2024 01:47 PM EDT Dictated By: Kalin Brown MD Signed By: Electronically signed by Kalin Brown MD 04/16/24 1347 Vent. Rate: 073 BPM Atrial Rate: 073 BPM P-R Int: 182 ms QRS Dur: 100 ms QT Int: 416 ms P-R-T Axes: 031 -18 003 degrees QTc Int: 458 ms Normal sinus rhythm Minimal voltage criteria for LVH, may be normal variant (Lucius product) Borderline ECG No previous ECGs available DD/ 1153 Radiology Impression Discussion of test interpretation with radiology: I have reviewed the radiologist's reading. Discharge Plan Discharge Clinical Impression: Atypical chest pain, Pleurisy Patient Disposition: Home, Self-Care Instructions: Pleurisy (DC), Noncardiac Chest Pain (ED) Additional Instructions: Follow up with your primary care provider. Return to the emergency department immediately if your symptoms worsen or if you develop any dizziness, shortness of breath, difficulty breathing, chest pain, blurry vision, loss of vision, nausea, vomiting, abdominal pain, fever, chills, back pain, or any other complaints. Prescriptions: No Action Praluent Pen 75 mg/mL pen injector 75 mg subcut Q2W 90 Days Qty: 7 3RF Rx Instructions: [id number]. PRALUENT INJ 75MG/ML is approved through 01/23/2024. furosemide 40 mg tablet 40 mg PO TID potassium chloride 20 mEq tablet,ER particles/crystals 20 meq PO BID levothyroxine [Synthroid] 175 mcg tablet 175 mcg PO DAILY aspirin [Adult Aspirin Regimen] 81 mg tablet,delayed release (DR/EC) 81 mg PO DAILY Referrals: [facility] Family Medicine [Provider Group] (Call to establish and follow up with a primary care provider. If you already have a primary care provider, please follow up with them.) [facility] Primary Care[facility] [Provider Group] (Call to establish and follow up with a primary care provider. If you already have a primary care provider, please follow up with them.) [facility] Primary Care,Marita [Provider Group] (Call to establish and follow up with a primary care provider. If you already have a primary care provider, please follow up with them.) Print Language: Khmer
[2024-04-16 13:13] LABS: MANUAL DIFF FLAG NO
[2024-04-16 13:15] LABS: Basophils Percent Auto 0.6 % (0-2); Eosinophils Absolute Auto 0.2 X10*3/uL (0.0-0.4); Hematocrit 45.3 % (37.0-47.0); Hemoglobin 15.6 g/dl (12.0-16.0); Imm Gran Abs Auto 0.01 X10*3/uL (0.00-0.03); Imm Gran Pct Auto 0.2 % (0.0-0.4); Lymphocytes Absolute Auto 1.7 X10*3/uL (1.2-4.9); Lymphocytes Percent Auto 25.7 % (20-40); Mean Corpuscular HGB Conc 34.4 g/dl (31.0-35.0); Mean Corpuscular Hemoglobin 29.7 pg (27.0-33.0); Mean Corpuscular Volume 86.1 fL (80.0-98.0); Mean Platelet Volume 9.5 fL (9.4-12.3); Monocytes Absolute Auto 0.6 X10*3/uL (0.1-1.2); Monocytes Percent Auto 9.7 % (2-11); Neutrophils Percent Auto 60.8 % (45-73); Platelet Count 342 X10*3/uL (160-400); Red Blood Count 5.26 X10*6/uL (4.20-5.50); Red Cell Distribution Width 13.2 % (11.0-16.0); White Blood Count 6.6 X10*3/uL (4.8-10.8)
[2024-04-16 13:21] LABS: INTERNATIONAL NORM RATIO 0.9 (0.9-1.1); Prothrombin Time 10.4 SEC (10.9-12.4)
[2024-04-16 13:35] LABS: Alanine Aminotransferase 46 U/L (0-31); Albumin Level 4.5 g/dL (3.5-5.0); Alkaline Phosphatase 74 U/L (39-117); Anion Gap 14 (12-20); Aspartate Amino Transferase 25 U/L (5-31); Bilirubin Total 0.6 mg/dL (0.0-1.0); Blood Urea Nitrogen 20 mg/dL (9-16); Calcium 9.9 mg/dL (8.4-10.2); Carbon Dioxide 32 mmol/L (22-29); Chloride 101 mmol/L (96-108); Creatinine Clr Calc Pharmacy 86.1; Estimated Glomerular Filt Rate > 60; Glucose Random 100 mg/dL (60-115); Sodium 144 mmol/L (135-145); Total Protein 7.7 g/dL (6.5-8.0)
[2024-04-16 13:47] LABS: Troponin-I High Sensitivity < 2.7 ng/L (<3.5-17.0)
[2024-04-16 13:52] LABS: Influenza A PCR NEGATIVE (Negative); Influenza B PCR NEGATIVE (Negative); Resp Syncy Virus RNA Qual PCR NEGATIVE (Negative); SARS COV2 PCR INHOUSE NEGATIVE (Negative)
[2024-04-16 14:16] VITALS: BP 123/73; PULSE 72; RESP 18; TEMP 36.9; O2SAT 95
--- NOTE | 2024-04-16 14:22 | PC.NURSE ---
pt a&ox3, vss, ekg nsr, has 4/10 mid sternal chest pain, labs previously drawn, provider at bedside to discharge patient.
[2024-04-16 14:23] VITALS: BP 123/73; PULSE 72; RESP 18; TEMP 36.9; O2SAT 95
[2024-04-16 14:23] LABS: B Type Natriuretic Peptide < 10 pg/mL (<100)
== END 2024-04-16 14:24 | disposition home or self-care (01) ==
PROVIDERS: Nurse Practitioner Family; Emergency Provider Emergency Medicine Emergency Medical Services
DX: R07.89 Other chest pain (principal); R09.1 Pleurisy; R06.02 Shortness of breath; Z03.818 Encounter for observation for suspected exposure to other biological agents ruled out; Z79.899 Other long term (current) drug therapy
CPT/HCPCS: 0241U; 71046; 80053; 83880; 84484; 85025; 85610; 93005; 99283; 99285

== ENCOUNTER → 2024-04-16 11:52 | Outpatient (BNV) | payer OTHER, SELFPAY | PROVIDERS: Emergency Provider Emergency Medicine Emergency Medical Services; Visit Provider Internal Medicine Cardiovascular Disease | DX: R07.9 Chest pain, unspecified (principal); R94.31 Abnormal electrocardiogram [ECG] [EKG] | CPT/HCPCS: 93010 ==

== ENCOUNTER 2024-06-28 09:26 | Outpatient (AMB) | payer OTHER, SELFPAY ==
[2024-06-28 09:30] VITALS: BP 130/78; PULSE 77
--- NOTE | 2024-06-28 09:30 | MHC.OFFVIS ---
Vital Signs 06/28/24 09:30 Height 5 ft 9 in BMI Reason not done Patient refused/unable BP 130/78 Blood Pressure Location Lt brachial Position Sitting Pulse 77 Pulse Source Pulse Oximeter Intake Visit Reasons: 1 YEAR FU Allergies ezetimibe [From Zetia] Allergy (Severe, Verified 04/16/24 12:09) abdominal pain Xstplex-UGS-TvK Reductase Inhibitor Allergy (Severe, Verified 04/16/24 12:09) Muscle Pain atenolol Allergy (Mild, Verified 04/16/24 12:09) Palpitations adhesive tape Allergy (Verified 04/16/24 12:09) rash gabapentin [From Neurontin] Allergy (Verified 04/16/24 12:09) Blurry Vision hydrocodone [From Vicodin] Allergy (Verified 04/16/24 12:09) Vomiting hydromorphone [From Dilaudid] Allergy (Verified 04/16/24 12:09) Vomiting meperidine [From Demerol] Allergy (Verified 04/16/24 12:09) Vomiting morphine Allergy (Verified 04/16/24 12:09) Vomiting oxycodone [From Percocet] Allergy (Verified 04/16/24 12:09) Vomiting Sulfa (Sulfonamide Antibiotics) Allergy (Verified 04/16/24 12:09) Hives Medication List - Last Reconciled 06/28/24 by Matheus Krause MD aspirin (Adult Aspirin Regimen) 81 mg PO DAILY evolocumab (Repatha SureClick) 140 mg subcut Q2W 90 days furosemide 40 mg PO TID levothyroxine (Synthroid) 175 mcg PO DAILY potassium chloride ER 20 mEq PO BID HPI Comments Details: Leydi comes for follow-up of her hyperlipidemia as well as prior TIA with thoracic aortic atherosclerosis. She is currently on Repatha therapy after prolonged insurance approval process. On Repatha which she is tolerating with mild headache symptoms when she takes injection, her LDL is well optimized at 50 mg/dL. However since April she has been noticing intermittent episodes of chest tightness. She says she went to the emergency room at that time an EKG and workup was negative. She comes for follow-up. She said on Friday while she was active and doing a lot of [place] decorations put away and being active she was getting more chest tightness. Friday she felt exhausted but did not have any significant episodes of chest tightness. She did not have any chest tightness today. She comes for follow-up. [facility] Medical History Ductal carcinoma in situ (DCIS) of breast Thoracic aorta atherosclerosis Allergy to statin medication Hyperlipidemia TIA (transient ischemic attack) Surgical History Hx of thyroidectomy Hx of breast surgery Hx of hernia repair Hx of abdominal surgery Hx of cholecystectomy Hx of hysterectomy Hx of knee surgery Family History Father CVD (cardiovascular disease) Mother No problems noted. Brother CVD (cardiovascular disease) Social History Alcohol intake: never Patient Tobacco Use Status: Never used Tobacco Review of Systems Const Denies weakness ENT Denies dizziness Card Denies chest pain, Denies chest pain with activity, Denies syncope, Denies rapid heart rate, Denies pedal edema, Denies edema, Denies leg edema, Denies lightheadedness, Denies palpitations, Denies dyspnea, Denies dyspnea on exertion and Denies orthopnea Resp Denies cough, Denies dyspnea and Denies dyspnea on exertion GI Denies hematochezia and Denies change in stool character Musc Denies abnormal gait, Denies muscle cramps, Denies muscle weakness, Denies numbness, Denies radiating pain into limb and Denies tingling Neuro Denies Abnormal speech present, Denies abnormal gait, Denies dizziness, Denies syncope, Denies numbness, Denies tingling and Denies weakness Endo Denies palpitations Physical Exam Vital Signs: Last Vital Signs Pulse 77 06/28/24 09:30 BP 130/78 06/28/24 09:30 Const General: cooperative, comfortable, no acute distress, alert, awake and well groomed Nutritional Appearance: obese Orientation/consciousness: patient oriented x3 Limitations: no limitations Neck Neck: Yes trachea midline, Yes supple and Yes no JVD Resp Effort & Inspection: normal respiratory effort Auscultation: clear to auscultation bilaterally Cardio Jugular venous distension: no JVD Palpation: normal PMI Rate: regular rate Rhythm: regular rhythm Heart sounds: S1 normal heart sound present, S2 normal heart sound present, no click, no gallops, no murmurs and no rubs GI Auscultation: normal bowel sounds Skin General skin exam: no rashes or lesions noted Neuro General: patient oriented x3 and no focal motor deficits Speech: No Abnormal speech present Extrem General: Yes no clubbing, cyanosis or edema Psych Appearance: grossly normal Assessment & Plan Assessment & Plan (1) Chest pain: Code(s): R07.9 - Chest pain, unspecified Category: Medical Plan: Patient with recent onset episodes of chest pain with some of the features concerning with exertional related chest tightness especially worse with exertion. She has not had any significant symptoms at rest. Given her history of TIA with thoracic aortic atherosclerosis, progressive coronary artery disease needs to be evaluated. Would suggest her to undergo exercise myocardial perfusion imaging in near future for further assessment of the same. Also suggest an echocardiogram to evaluate LV systolic and diastolic function. Further treatment based on the findings. (2) TIA (transient ischemic attack): Code(s): G45.9 - Transient cerebral ischemic attack, unspecified Category: Medical Plan: Prior history of TIA with thoracic aortic atherosclerosis with no recurrence after she was treated with dual antiplatelet therapy for a year. Currently on low-dose aspirin therapy which she is strongly encouraged to continue. She was also not able to tolerate any other lipid modification including statins and ezetimibe but has tolerated PCSK9 inhibitor therapy with extremely good results are LDL 50 mg/dL. This is essential therapy for her to prevent progressive atherosclerotic disease for secondary prevention. Will discuss with insurance company regarding the same. Will follow-up with her in 1 year's time, sooner p.r.n.. Thank you for allowing me to partake in his care Orders: Orders CA stress test Today R07.9 - Chest pain, unspecified CA echo transthoracic complete Today R07.9 - Chest pain, unspecified NM cardiolite stress test 2 Weeks R07.9 - Chest pain, unspecified Coding Level of Care Code Est Pt Level 4 (99829) Complex EM visit Add On G2211 Diagnoses Chest pain R07.9 TIA (transient ischemic attack) G45.9
--- OUTSIDE RECORDS SUMMARY | 2024-06-28 09:52 | XMS_ITS ---
Author Name [facility] Organization Unknown History of Medication Use Medication Directions Dispensed Refills Start Date End Date Stat aspirin enteric coated (aspirin) 325 MG EC tablet Take 325 mg by mouth 2 (two) times a day in the morning and the early afternoon. 09/11/2022 active diphenhydrAMINE (BENADRYL) 25 MG tablet Take 25 mg by mouth every 4 (four) hours. q 4 hrs as needed for itch 09/11/2022 active levothyroxine (Synthroid) 175 MCG tablet Take 175 mcg by mouth every morning. 1 tab q day Friday thru Sat, skip on Friday09/11/2022 active traMADol (ULTRAM) 50 MG tablet Take 50 mg by mouth 4 times daily (every 6 hours) as needed. 1-2 tabs q 6 hrs 09/11/2022 active diphenhydrAMINE (BENADRYL) 25 MG tablet Take 25 mg by mouth every 4 (four) hours. q 4 hrs as needed for itch 09/11/2022 active PANTOprazole (PROTONIX) 40 MG EC tablet Take 40 mg by mouth daily. morning 09/11/2022 active acetaminophen-codeine (TYLENOL #3) 300-30 MG per tablet Take 1 tablet by mouth 4 times daily (every 6 hours) as needed. 09/11/2022 active polyethylene glycol (miraLAx) 17 g packet Take 17 g by mouth once. as needed for constipation 09/11/2022 active clopidogrel (PLAVIX) 75 MG tablet Take 75 mg by mouth daily. on hold since 08/26/22 09/11/2022 aborted furosemide (LASIX) 40 MG tablet Take 40 mg by mouth 2 (two) times a day in the morning and the early evening. 80 mg in the morning and 40 mg q evening 09/11/2022 active potassium chloride (K-TAB) 20 MEQ CR tablet [The details of the medication are not available because there are pending changes by a home health clinician.] 09/11/2022 active alirocumab (PRALUENT) 75 MG/ML auto-injector Inject 75 mg under the skin every 14 days (2 weeks). 09/11/2022 active senna (SENOKOT) 8.6 MG Tab tablet Take 1 tablet by mouth 2 (two) times a day. 09/11/2022 active
--- OUTSIDE RECORDS SUMMARY | 2024-06-28 09:52 | XMS_ITS | Data Portability ---
Author Organization [facility], [facility] Address [address] [place] [address] Care Team Providers Care [facility] Grip Name Role Phone [facility] Primary Care Provide r Assessment Encounter Date Assessment Date Assessment LastModified by Organization Details LastModified Time 11/28/2023 11/28/2023 Assessment: Patient still has perfect PROM all planes with min to no end range pain. She is able to complete all ther ex without increased hip pain. Plain: Wait to progress ther ex until pt sees MD. asif Not available 11/28/2023 09:19:57 12/01/2023 12/01/2023 Assessment: Pt able to complete all ther ex without increased hip pain. Mod challenged c balance board. Fatigued appropriately. Plain: Wait to progress ther ex until pt sees MD. deluca Not available 12/01/2023 15:43:39 12/04/2023 12/04/2023 Reason for Visit: 4 months status post left hip open gluteus medius repair HPI: The patient is a 58-year-old female now nearly 4 months status post left hip open gluteus medius repair for a full-thickness gluteus medius tear performed on 08/13/2023. Overall, she has been doing very well. She was protected weightbearing as recommended for the first 2 months postop. Unfortunately, while walking in early October 2023, she had a sudden episode of significant increase in left lateral hip pain and a popping sensation with a couple other popping episodes while walking as well in conjunction with increased pain. I saw her on 11/07/2023 to address these concerns. I did obtain x-rays at that time and there was some enthesopathy at the greater trochanter of the left hip and concern for possible avulsion fracture. I referred her for a CT scan of the left hip confirming no fracture with intact anchor hardware. Fortunately, her symptoms have significantly improved since I last saw her as well. She has been taking it easy and taking her time with activity including walking. She is happy with her most recent progress. I independently reviewed the CT scan of the left hip from October 2023. No fracture or dislocation. Intact hip replacement components with no evidence of ostial lysis. Intact suture anchors at the greater trochanter with no evidence of hardware failure or back. Physical Examination: Height and weight as noted in chart. Constitutional: Patient pleasant, well appearing and in NAD. Mental status: Patient is alert and oriented x 4. No short-term memory deficits. Psychiatric: Mood and affect are appropriate. Respiratory: Non-labored breathing. Musculoskeletal: On examination of the left hip, she has very normal hip range of motion with some residual tenderness over the lateral hip. She is able to walk normally without a Trendelenburg gait. Impression and Plan: 58-year-old female now nearly 4 months status post left hip open gluteus medius repair for a full-thickness gluteus medius tear performed on 08/13/2023. Overall, she has been doing very well. She was protected weightbearing as recommended for the first 2 months postop. Unfortunately, while walking in early October 2023, she had a sudden episode of significant increase in left lateral hip pain and a popping sensation with a couple other popping episodes while walking as well in conjunction with increased pain. I saw her on 11/07/2023 to address these concerns. I did obtain x-rays at that time and there was some enthesopathy at the greater trochanter of the left hip and concern for possible evulsion fracture. I referred her for a CT scan of the left hip confirming no fracture with intact anchor hardware. Fortunately, her symptoms have significantly improved since I last saw her as well. She has been taking it easy and taking her time with activity including walking. She is happy with her most recent progress. I want her to take it easy over the summer. She may gradually increase her walking as well as stationary biking. I will plan to see her back in 3 months for reevaluation. All questions and concerns addressed. gerard Not available 12/04/2023 14:51:11 03/09/2024 03/09/2024 Reason for Visit: 7 months status post left hip open gluteus medius repair; Left proximal hamstring tendinitis HPI: The patient is a 58-year-old female now nearly 4 months status post left hip open gluteus medius repair for a full-thickness gluteus medius tear performed on 08/13/2023. Overall, she has been doing well, but does continue to have pain after longer walks although she is very appreciative of her progress stating that she is proximally 70% better than where she was before surgery. She did have a mishap while walking in early October 2023. She had a sudden episode of significant increase in left lateral hip pain and a popping sensation with a couple other popping episodes while walking as well in conjunction with increased pain. I saw her on 11/07/2023 to address these concerns. I did obtain x-rays at that time and there was some enthesopathy at the greater trochanter of the left hip and concern for possible avulsion fracture. I referred her for a CT scan of the left hip confirming no fracture with intact anchor hardware. Fortunately, her symptoms significantly improved and CT scan showed no evidence of fracture or hardware loosening. Currently, her lateral sided hip pain is markedly improved and her major complaint is posterior buttock pain. I independently reviewed the CT scan of the left hip from October 2023. No fracture or dislocation. Intact hip replacement components with no evidence of ostial lysis. Intact suture anchors at the greater trochanter with no evidence of hardware failure or back. Physical Examination: Height and weight as noted in chart. Constitutional: Patient pleasant, well appearing and in NAD. Mental status: Patient is alert and oriented x 4. No short-term memory deficits. Psychiatric: Mood and affect are appropriate. Respiratory: Non-labored breathing. Musculoskeletal: On examination of the left hip, she has very normal hip range of motion with some residual tenderness over the lateral hip. She is able to walk normally without a Trendelenburg gait. She is able to maintain a level pelvis on single leg stance. She has tenderness to palpation directly at the ischial tuberosity. Impression and Plan: 58-year-old female now nearly 4 months status post left hip open gluteus medius repair for a full-thickness gluteus medius tear performed on 08/13/2023. Overall, she has been doing well, but does continue to have pain after longer walks although she is very appreciative of her progress stating that she is proximally 70% better than where she was before surgery. She did have a mishap while walking in early October 2023. She had a sudden episode of significant increase in left lateral hip pain and a popping sensation with a couple other popping episodes while walking as well in conjunction with increased pain. I saw her on 11/07/2023 to address these concerns. I did obtain x-rays at that time and there was some enthesopathy at the greater trochanter of the left hip and concern for possible avulsion fracture. I referred her for a CT scan of the left hip confirming no fracture with intact anchor hardware. Fortunately, her symptoms significantly improved and CT scan showed no evidence of fracture or hardware loosening. Currently, her lateral sided hip pain is markedly improved and her major complaint is posterior buttock pain. Her symptoms are consistent with proximal hamstring tendinitis and I did notice on her preoperative MRI. I am referring her to physical therapy for a hamstring stretching and eccentric strengthening program. I will plan to see her back in 3 months for reevaluation. If she continues to be symptomatic, consider a PRP injection to the proximal hamstring origin under ultrasound guidance. All questions and concerns addressed. gerard Not available 03/09/2024 09:27:04 06/08/2024 06/08/2024 Reason for Visit: 10 months status post left hip open gluteus medius repair; Left proximal hamstring tendinitis HPI: The patient is a 59-year-old female now 10 months status post left hip open gluteus medius repair for a full-thickness gluteus medius tear performed on 08/13/2023. Overall, she has been doing well and states that she is 90% better than where she was before surgery. Currently, her lateral sided hip pain is very minimal and only bothers her after walking more than 3 miles but does continue to have buttock pain in relation to her left proximal hamstring tendinitis, which has been stable and nonprogressive. I independently reviewed the CT scan of the left hip from October 2023. No fracture or dislocation. Intact hip replacement components with no evidence of ostial lysis. Intact suture anchors at the greater trochanter with no evidence of hardware failure or back. Physical Examination: Height and weight as noted in chart. Constitutional: Patient pleasant, well appearing and in NAD. Mental status: Patient is alert and oriented x 4. No short-term memory deficits. Psychiatric: Mood and affect are appropriate. Respiratory: Non-labored breathing. Musculoskeletal: On examination of the left hip, she has very normal hip range of motion with some residual tenderness over the lateral hip. She is able to walk normally without a Trendelenburg gait. She is able to maintain a level pelvis on single leg stance. She has tenderness to palpation directly at the ischial tuberosity. Impression and Plan: 59-year-old female now 10 months status post left hip open gluteus medius repair for a full-thickness gluteus medius tear performed on 08/13/2023. Overall, she has been doing well and states that she is 90% better than where she was before surgery. Currently, her lateral sided hip pain is very minimal and only bothers her after walking more than 3 miles but does continue to have buttock pain in relation to her left proximal hamstring tendinitis, which has been stable and nonprogressive. If she continues to be symptomatic regarding her hamstring tendinitis, we can consider a PRP injection to the proximal hamstring origin under ultrasound guidance as well as formal course of physical therapy. I did encourage her to commence a stationary biking program is an excellent low-impact activity to improve quadriceps and gluteus laurel strengthening. At this point, I can see her back as needed. All questions and concerns addressed. [email or web address] Not available 06/08/2024 10:50:51 Plan of Treatment Reminders Order Date Submit Date Provider Last Modified By Organization Details Last Modified Time Details Appointments None recorded. Lab None recorded. Referral physical therapist referral 2023 024 [email or web address] Not available 11:28:18 Procedures None recorded. Surgeries None recorded. Imaging None recorded. Medication Orders None recorded. Patient TargetsNo targets recorded. Patient InstructionsNo instructions recorded. Reason for Referral Physical Therapist Referral for Strain of hamstring tendon Referring Physician: Marshall Amor, Orthopedic Surgery, [id number] Encounter Date: 03/09/2024 Results Created Date Observation Date Name Description Value Unit Range Abnormal Flag Note LastModifiedBy Organization Detail LastModifiedTime 02/20/2004/12/2023 imagi ng/di agnos tic resul t No observ ation record ed. [email or web address] Not Available 01/23 04:56:05 Result Notes None recorded. 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 - [facility] 4 12:29:11 Pain in right hip joint 630603292252 102 Active 2023 ELOISA mendoza [place] [facility] 4 11:29:13 Contact dermatiti s caused by urushiol from [facility] kristan [id number] Active 2023 ELOISA mendoza [place] [facility] 4 11:32:54 Pain of left hip joint 225367776849 100 Active 2023 ELOISA mendoza [facility] 4 12:11:27 Problem Notes None recorded. Procedures Surgical History Date Name Laterality Status Provider Name and Address Organization Details Recorded Time 4 67612 Therapeutic Exercise (1:1) completed Joie Crespo PTA [address], [place], [address], [facility] 12/01/2023 15:43:56 4 65890 Therapeutic Exercise (1:1) completed Rodriguez Henson DPT [address], [place], [address], [facility] 11/28/2023 08:54:49 4 68109 Therapeutic Exercise (1:1) completed Joie Crespo PTA [address], [place], [address], [facility] 11/26/2023 15:41:18 4 05479: Hot or Cold Pack completed Joie Crespo PTA [address], [place], [address], [facility] 11/26/2023 15:05:58 4 69523 Therapeutic Exercise (1:1) completed Rodriguez Henson DPT [address], [place], [address], [facility] 11/19/2023 10:41:08 4 33609 Therapeutic Exercise (1:1) cancelled Rodriguez Henson DPT [address], [place], [address], [facility] 11/10/2023 08:57:31 4 63955 Therapeutic Exercise (1:1) cancelled Joie Crespo PTA [address], [place], [address], [facility] 11/05/2023 16:56:50 4 63843 Therapeutic Exercise (1:1) completed Rodriguez Henson DPT [address], [place], [address], [facility] 11/04/2023 13:40:26 4 92133 Therapeutic Exercise (1:1) completed EB JosephT [address], [place], [address], [facility] 10/29/2023 15:43:28 4 73271 Therapeutic Exercise (1:1) completed EB JosephT [address], [place], [address], [facility] 10/27/2023 15:46:01 4 43199: Manual therapy completed EB JosephT [address], [place], [address], [facility] 10/27/2023 15:03:10 4 23808 Therapeutic Exercise (1:1) completed Joie Crespo PTA [address], [place], [address], [facility] 10/22/2023 16:09:54 4 85429: Hot or Cold Pack completed Joie Crespo PTA [address], [place], [address], [facility] 10/22/2023 16:18:54 4 46253: Manual therapy completed Joie Crespo PTA [address], [place], [address], [facility] 10/22/2023 15:58:14 4 35437 Therapeutic Exercise (1:1) completed Joie Crespo PTA [address], [place], [address], [facility] 10/17/2023 13:45:37 4 40107: Manual therapy completed Joie Crespo PTA [address], [place], [address], [facility] 10/20/2023 16:59:59 4 05798 Therapeutic Exercise (1:1) completed EB JosephT [address], [place], [address], [facility] 10/15/2023 09:49:35 4 80295: Manual therapy completed Rodriguez Henson DPT [address], [place], [address], [facility] 10/15/2023 09:49:32 4 57615 Therapeutic Exercise (1:1) completed Rodriguez Henson DPT [address], [place], [address], [facility] 10/13/2023 20:47:47 4 15273: Low complexity PT Eval completed EB JosephT [address], [place], [address], [facility] 10/13/2023 12:37:19 Imaging Results Imaging Date Name Status LastModified by Organiz ation Details LastModified Time 04/12/2023 imaging/diag nostic result completed [email or web address] Information not available 02/20/2024 04:56:05 Procedure Notes None recorded. Medical Equipment None Reported. Allergies Allergen ID Allergen Name Allergen Category Reaction Reaction Severity Criticality Documentation Date Start Date Code Code System Note Provider Name and Address Organization Details Recorded Time 03367 Percodan medicatio n Not available Not available Not available 08/25/20232011 85840 RxNorm Not Available [facility] 4 11:53:21 88573 Dilaudid medicatio n Not available Not available Not available 08/25/20232012 00787 3 RxNorm Not Available [facility] 4 11:53:21 21665 acetamino phen / hydrocodo ne medicatio n Not available Not available Not available 08/25/20232011 94092 2 RxNorm Not Available [facility] 4 11:53:21 09681 Demerol medicatio n Not available Not available Not available 08/25/20232011 42445 1 RxNorm Not Available [facility] 4 11:53:21 82846 morphine sulfate medicatio n Not available Not available Not available 08/25/20232011 52210 RxNorm Not Available [facility] 4 11:53:21 55615 acetamino phen / oxycodone medicatio n Not available Not available Not available 08/25/20232011 24728 3 RxNorm Not Available [facility] 4 11:53:21 42740 latex environme nt,medica tion Not available Not available Not available 08/25/20232022 31117 91 RxNorm Not Available [facility] 4 11:53:22 24256 Substance with sulfonami de structure and antibacte rial mechanism of action (substanc e) medicatio n Not available Not available Not available 08/25/20232011 24780 8003 SNOMED Not Available [facility] 4 11:53:22 Medications Name Sig Start Date Stop Date Status Note LastModified by Organization Details LastModified Time cyclobenzap rine 10 mg tablet TAKE 1 TABLET BY MOUTH EVERY 8 HOURS NEEDED FOR SPASM AND PAIN active Not Available Not Available No t Available amoxicillin 500 mg capsule TAKE 4 CAPSULES BY MOUTH 1 HOUR BEFORE DENTAL APPOINTME NT active Not Available Not Available No t Available furosemide 40 mg tablet TAKE 2 TABLETS BY MOUTH EVERY MORNING AND 1 TABLET EVERY EVENING DIRECTED. active Not Available Not Available No t Available prednisone 10 mg tablet active Not Available Not Available Not Available cefuroxime axetil 250 mg tablet TAKE 1 TABLET BY MOUTH TWICE DAILY FOR 7 DAYS active Not Available Not Available No t Available azithromyci n 250 mg tablet TAKE 2 TABLETS BY MOUTH FOR 1 DAY THEN TAKE 1 TABLET BY MOUTH DAILY FOR 4 DAYS active Not Available Not Available No t Available benzonatate 200 mg capsule TAKE 1 CAPSULE BY MOUTH THREE TIMES DAILY FOR 7 DAYS active Not Available Not Available No t Available ondansetron HCl 4 mg tablet TAKE 1 TABLET BY MOUTH EVERY 6 TO 8 HOURS NEEDED FOR NAUSEA active Not Available Not Available No t Available prednisone 20 mg tablet TAKE 3 TABLETS BY MOUTH DAILY FOR 3 DAYS THEN TAKE 2 TABLETS BY MOUTH DAILY FOR 3 DAYS THEN TAKE 1 TABLET BY MOUTH DAILY FOR 3 DAYS active Not Available Not Available No t Available acetaminoph en 300 mg-codeine 30 mg tablet TAKE 1 TO 2 TABLETS BY MOUTH EVERY 4 HOURS NEEDED FOR PAIN active Not Available Not Available No t Available clopidogrel 75 mg tablet TAKE 1 TABLET BY MOUTH DAILY active Not Available Not Available No t Available spironolact one 25 mg tablet TAKE 1/2 TABLET BY MOUTH DAILY active Not Available Not Available No t Available Synthroid 175 mcg tablet TAKE 1 TABLET BY MOUTH EVERY DAY FRIDAY TO FRIDAY active Not Available Not Available No t Available potassium chloride ER 20 mEq tablet,exte nded release(par t/cryst) TAKE 1 TABLET BY MOUTH TWICE DAILY active Not Available Not Available No t Available aspirin 325 mg tablet,brian yed release TAKE 1 TABLET BY MOUTH DAILY DIRECTED FOR 4 WEEKS. START THIS MEDICATIO N ON POST OP DAY 1 active Not Available Not Available No t Available losartan 25 mg tablet active Not Available Not Available No t Available bisacodyl 5 mg tablet,brian yed release active Not Available Not Available Not Available methylpredn isolone 4 mg tablets in a dose pack FOLLOW PACKAGE DIRECTION S active Not Available Not Available No t Available ondansetron 4 mg disintegrat ing tablet DISSOLVE 1 TABLET ON THE TONGUE EVERY 8 HOURS NEEDED FOR NAUSEA active Not Available Not Available No t Available naproxen 500 mg tablet TAKE 1 TABLET BY MOUTH TWICE DAILY FOR 5 DAYS active Not Available Not Available No t Available nitrofurant oin monohydrate /macrocryst als 100 mg capsule TAKE 1 CAPSULE BY MOUTH TWICE DAILY FOR 7 DAYS active Not Available Not Available No t Available levalbutero l HFA 45 mcg/actuati on aerosol inhaler INHALE 2 PUFFS BY MOUTH EVERY 4 TO 6 HOURS NEEDED FOR SHORTNESS OF BREATH active Not Available Not Available No t Available fentanyl APPLY DIRECTED [id number] NTITY 5 PATCHES 12/20 completed Statu s: 'Disc ontin ued'; Not Available Not Available Not Available potassium Potassium 75MG Tablet 2022 active Statu s: 'Curr ent'; Not Available Not Available Not Available peg 3350-electr olytes 236 gram-22.74 gram-6.74 gram-5.86 gram solution USE DIRECTED active Not Available Not Available No t Available diclofenac 1 % topical gel APPLY 2 TO 4 GRAMS TOPICALLY TO THE AFFECTED AREA 2 TO 3 TIMES PER DAY active Not Available Not Available No t Available oxycodone HCl-oxycodo ne-ASA as directed 1 Tab po q 4-[address] NOT DRIVE WHILE TAKING THIS MEDICATIO N 2023 active Statu s: 'Curr ent'; Not Available Not Available Not Available Praluent Pen 75 mg/mL subcutaneou s pen injector active Not Available Not Available Not Available Repatha SureClick 140 mg/mL subcutaneou s pen injector INJECT 140MG UNDER THE SKIN EVERY 2 WEEKS active Not Available Not Available No t Available Vitals Date Recorded Body height Body mass index (BMI) Body weight Provider Name and Address Organization Details Last Updated DateTime 12/04/2023 172.085 cm 36.5 kg/m2 297824.98 g Dakotah Jennings [facility] 12/04/2023 08:27:01 Date Recorded Body height Body mass index (BMI) Body weight Provider Name and Address Organization Details Last Updated DateTime 03/09/2024 172.085 cm 36.5 kg/m2 322807.98 g LINA OSORIO [facility] 03/09/2024 08:43:04 Date Recorded Body height Body mass index (BMI) Body weight Provider Name and Address Organization Details Last Updated DateTime 06/08/2024 172.085 cm 36.5 kg/m2 749931.98 g LINA OSORIO [facility] 06/08/2024 08:09:54 Social History None recorded. Functional Status None recorded. Mental Status None recorded. Family History Nothing Reported. Medical History No medical history recorded. Gynecological HistoryNo gynecological history recorded. Obstetrics History GPAL:G 0 P 0 0 0 0 Past Encounters Encounter ID Performer Location Encounter Start Date Encounter Closed Date Diagnosis/Indication Diagnosis SNOMED-CT Code Diagnosis ICD10 Code Diagnosis Note [id number] MD Dave [facility] [address] [place] [address] 09/30/2023 09:41:08 10/24/2023 10:51:16 Tendinitis of left gluteal tendon [id number] 73687 M76.02 Postoperative care 92907 9007 Z48.89 [id number] EB JosephT [facility] [address] [place] [address] 10/13/2023 14:02:37 10/13/2023 20:48:40 Tendinitis of left gluteal tendon [id number] 39837 M76.02 [id number] EB JosephT [facility] [address] [place] [address] 10/15/2023 14:29:12 10/15/2023 15:18:52 Tendinitis of left gluteal tendon [id number] 87890 M76.02 [id number] EB JosephT [facility] [address] [place] [address] 10/20/2023 15:11:34 10/20/2023 17:02:29 Tendinitis of left gluteal tendon [id number] 14898 M76.02 [id number] EB JosephT [facility] [address] [place] [address] 10/22/2023 15:05:54 10/22/2023 16:55:50 Tendinitis of left gluteal tendon [id number] 93814 M76.02 [id number] EB JosephT [facility] [address] [place] [address] 10/27/2023 14:46:33 10/28/2023 07:39:06 Tendinitis of left gluteal tendon [id number] 56452 M76.02 [id number] Rodriguez Henson DPT [facility] [address] [place] [address] 10/29/2023 14:56:34 10/29/2023 15:49:36 Tendinitis of left gluteal tendon [id number] 39561 M76.02 [id number] EB JosephT [facility] [address] [place] [address] 11/04/2023 15:07:33 11/04/2023 16:38:55 Tendinitis of left gluteal tendon [id number] 35006 M76.02 [id number] MD Dave [facility] [address] floor [address] [place] [address] 11/07/2023 10:20:07 12/02/2023 12:17:18 Pain in right hip joint 4496574987 52173 M25.551 Postoperative care 01792 9007 Z48.89 [id number] Rodriguez Henson, EBT [facility] [address] [place] [address] 11/19/2023 10:31:53 11/19/2023 11:03:43 Tendinitis of left gluteal tendon [id number] 60389 M76.02 [id number] Rodriguez Henson DPT [facility] [address] [place] [address] 11/26/2023 14:48:26 11/26/2023 15:44:39 Tendinitis of left gluteal tendon [id number] 03654 M76.02 [id number] EB JosephT [facility] [address] [place] [address] 11/28/2023 07:46:27 11/28/2023 09:20:19 Tendinitis of left gluteal tendon 0435471204 94295 M76.02 [id number] EB JosephT [facility] [address] [place] [address] 12/01/2023 15:15:09 12/01/2023 15:44:29 Tendinitis of left gluteal tendon 6146595841 84600 M76.02 [id number] MD Dave [facility] [address] floor [address] [place] [address] 12/04/2023 08:19:33 12/30/2023 10:44:15 Postoperative care [id number] Z48.89 [id number] MD Dave [facility] [address] floor [address] [place] [address] 03/09/2024 08:22:21 03/30/2024 08:37:56 Strain of hamstring tendon [id number] S76.312A [id number] [facility] [address] [place] [address] 06/08/2024 07:52:27 06/08/2024 10:51:30 Surgical follow-up [id number] Z48.89 Hamstring injury [id number] M76.892 Health Concerns Section Related Observation LastModified by Organization Detai ls LastModified Time None Recorded Concern Status LastModified by Organization Details LastModified Time None Recorded Advance Directives Directive None Recorded Payers Encounter Date Sequence Insurance Name Policy Number Policy Berg Covered Member ID Berg Member ID Guarantor Name 11/28/2023 1 [facility]) [id number] 1 Leydi A A Miller [id number] Leydi A Miller 12/01/[address] [place] [address]) [id number] 1 Leydi A A Miller [id number] Leydi A Miller 12/04/[address] [place] [address]) [id number] 1 Leydi A A Miller [id number] Leydi A Miller 03/09/2024 1 [facility]) [id number] 1 Leydi A A Miller [id number] Leydi A Miller 06/08/[address] [place] [address]) [id number] 1 Leydi A A Miller [id number] Leydi A Miller Notes Date Note Type Note Provider Name and Address Organization Details Recorded Time 11/28/2023 text/html Patient feels li ke she is doing better but still gets that clicking in her hip. Rodriguez Henson, DPT [address], [place], [address], [facility] 11/28/2023 09:20:11 12/01/2023 text/html Patient feels about the same as before, but c/o of burning sensation she experienced today for about an hour when she was sitting, but not at present walking in. Joie Crespo, [employer] [address], [place], [address], [facility] 12/01/2023 15:44:23 OBGyn Episode No OBEpisode recorded.
== END 2024-06-28 09:55 | disposition home or self-care (01) ==
PROVIDERS: PCP Physician Assistant Medical; Visit Provider Internal Medicine Cardiovascular Disease
DX: R07.9 Chest pain, unspecified (principal); G45.9 Transient cerebral ischemic attack, unspecified
CPT/HCPCS: 99214

== ENCOUNTER → 2024-07-19 07:27 | Outpatient (REF) | payer OTHER, SELFPAY ==
--- NOTE | ~2024-07-19 | NM_ITS ---
EXERCISE MYOCARDIAL PERFUSION STUDY INDICATION: Chest pain to evaluate for myocardial ischemia TECHNIQUE: The patient was brought in for an exercise perfusion study on July 19, 2024. Patient performed exercise as per Luther protocol and was injected with 30 mCi of sestamibi once target heart rate was achieved. Images were obtained using the SPECT gamma camera interlaced with the gating device. Images were obtained in supine position. Resting perfusion study was performed on July 20, 2024. Patient was administered 30 mCi of sestamibi intravenously at rest. Images were then obtained in supine position. Images were processed with the software and compared side to side in short axis, horizontal long axis and vertical long axis views. FINDINGS: Raw images were reviewed The stress perfusion study showed nonattenuated images show minimal thinning of the basal septum as well as basal inferior wall of the LV myocardium. Remainder of the LV myocardium is normally perfused. Attenuated corrected images show minimally reduced uptake in the apex of the LV myocardium. The gated study shows normal LV systolic function with calculated LVEF of 61%. LV cavity is normal in size. The gated study shows normal systolic wall thickening and contraction of segments. Resting study shows no change in perfusion pattern compared to stress perfusion study. Gating at rest reveals normal systolic wall motion with ejection fraction at 57%. The findings are consistent with normal myocardial perfusion. NM/NM cardiolite stress test IMPRESSION: 1. Myocardial perfusion imaging study shows normal myocardial perfusion. 2. Gated LVEF is 61%. 3. Transient ischemic dilatation not present. EKG revealed equivocal for ischemia. . Electronically signed by: Matheus Krause MD 07/20/2024 04:18 PM [facility]
--- OUTSIDE RECORDS SUMMARY | 2024-07-19 07:29 | XMS_ITS | Clinical Summary ---
Author Organization [address] Address [address] [place] [phone] Phone Care Team Providers Care Roentgenology Teacher Name Role Phone Rasta Ruelas Primary Care Provider [phone] Allergies Active Allergy Reactions Criticality Noted Date Comments Atenolol Medium 04/22/2006 Other Reaction(s): Diagnosed by allergy testing severe ??depressions Atorvastatin 06/27/2017 Other Reaction(s): Flushing, feeling of warmth, OTHER Heart palpitation Gabapentin Enacarbil 11/04/2011 Hydrocodone-Acetaminoph en Nausea And Vomiting High 08/14/2005 Hydromorphone Hcl Nausea And Vomiting High 6 Meperidine Hcl Nausea And Vomiting 10/12/2009 Morphine Sulfate Nausea And Vomiting High 08/14/2005 Other 11/06/2010 Seasonal Allergies Other Reaction(s): Runny Nose/Rhinitis Oxycodone-Aspirin Nausea And Vomiting High 6 Sulfa (Sulfonamide Antibiotics) 11/04/2011 Medications Medication Sig Dispensed Refills Start Date End Date Status potassium chloride 20 mEq tablet extended release Take 1 tablet by mouth 2 (two) times a day. 12/02/2023 Active aspirin 81 mg EC tablet Take 81 mg by mouth daily. Active levothyroxine (Synthroid) 175 mcg tablet Take 1 tablet (175 mcg total) by mouth 1 (one) time each day. 05/26/2020 Active Repatha SureClick 140 mg/mL pen injector injection INJECT 140MG UNDER THE SKIN EVERY 2 WEEKS 04/22/2024 Active azithromycin (ZITHROMAX) 250 mg tablet Take 2 tabs on day one and then 1 tab for the next 4 days 6 tablet 06/03/2024 Active Additional Information Patient not taking.Reported on 07/07/2024 predniSONE (DELTASONE) 20 mg tablet Take 3 tabs daily x3 days, then take 2 tabs daily x3 days, then take 1 tab daily for 3 day 18 each 06/03/2024 Active Additional Information Patient not taking.Reported on 07/07/2024 furosemide (LASIX) 40 mg tablet TAKE 2 TABLETS BY MOUTH EVERY MORNING AND 1 TABLET EVERY EVENING DIRECTED. 90 tablet 1 07/13/2024 Active furosemide (LASIX) 40 mg tablet TAKE 2 TABLETS BY MOUTH EVERY MORNING AND 1 TABLET EVERY EVENING DIRECTED. 90 tablet 1 04/28/2024 07/07/2024 Discontinue d(Reorder) Active Problems Problem Noted Date Diagnosed Date COVID-19 04/28/2024 Prolonged Q-T interval on ECG 04/28/2024 Carotid stenosis, asymptomatic, bilateral 2023 TIA (transient ischemic attack) 02/21/2021 Osteoarthritis of left hip 03/01/2020 Fatty liver 11/10/2018 Atypical chest pain 07/16/2018 Overview (04/28/2024): Normal angio 2002 Hypertension 07/16/2018 DCIS (ductal carcinoma in situ) of breast 2014 Residual hemorrhoidal skin tag 10/12/2009 Overview (04/28/2024): Incidental finding at colonoscopy 10/12/2009. Internal and external. Osteoarthrosis, localized, primary, involving lo wer leg 09/25/2005 Overview (04/28/2024): Bilateral total knee replacements 2012 IMO Update Fall 2016 Hypothyroidism 08/14/2005 Overview (04/28/2024): post thyroid excision for paipillaary cancer 2003 Mixed hyperlipidemia 08/14/2005 Raynaud's syndrome 08/14/2005 Severe obesity (BMI 35.0-39.9) with comorbidity 08/14/2005 Encounters Date Type Department Care Team Description 07/13/2024 Telephone [facility] [address] [phone] Miriam Everett MD 07/07/2024 3:15 PM EST Consult Breast [address] [phone] Miriam Everett MD Ductal carcinoma in situ (DCIS) of right breast (Primary Dx); History of breast cancer; History of therapeutic radiation 07/07/2024 Telephone Adult Medicine [address] [phone] Rasta Ruelas PA Referral (DR NIMESH SAUCEDO) 06/29/2024 Telephone Breast [address] [phone] Kenia Marquez, WILLIAM Appointment 06/22/2024 1:34 PM EST - 06/22/2024 11:59 PM EST Hospital Encounter Radiology Department - [address] [phone] Abnormal mammogram Discharge Disposition: Home or Self Care 06/15/2024 8:13 AM EST - 06/15/2024 11:59 PM EST Hospital Encounter Radiology Department - [address] [phone] Abnormal mammogram Discharge Disposition: Home or Self Care 06/15/2024 7:50 AM EST - 06/15/2024 11:59 PM EST Hospital Encounter Radiology Department - [address] [phone] Abnormal mammogram Discharge Disposition: Home or Self Care 06/14/2024 2:33 PM EST - 06/14/2024 11:59 PM EST Hospital Encounter Radiology Department - [address] [phone] Abnormal mammogram Discharge Disposition: Home or Self Care 06/14/2024 2:33 PM EST - 06/14/2024 11:59 PM EST Hospital Encounter Radiology Department - [address] [phone] Abnormal mammogram Discharge Disposition: Home or Self Care 06/09/2024 7:32 AM EST - 06/09/2024 11:59 PM EST Hospital Encounter Radiology Department [address] [phone] Encounter for screening mammogram for breast cancer Discharge Disposition: Home or Self Care 06/03/2024 9:30 AM EST Office Visit Adult Medicine [address] [phone] Lianet Lincoln PA Upper respiratory tract infection, unspecified type (Primary Dx); Productive cough; Leukocytosis, unspecified type; Primary hypertension; Hypokalemia; Mixed hyperlipidemia; Postoperative hypothyroidism from Last 3 Months Immunizations Name Administration Dates Next Due Influenza trivalent, 0.5mL, preservative free (Fluarix; FluLaval; Fluzone) ages 6mo and older (Afluria) 3 years and older 04/05/2014,06/02/2007 Td Tetanus diptheria (Tdvax) 7yo and older 11/10 Tdap Tetanus diptheria acell ular pertussis (Boostrix; Adacel) 7yo and older 07/27/2008 Surgical History Surgery Date Site/Laterality Comments OTHER SURGICAL HISTORY 1999 PROCEDURE: HISTORICAL SUPRACERVICAL HYSTERECTOMY W/O BSO; COMMENT: still has left ovary CHOLECYSTECTOMY PROCEDURE: HISTORICAL CHOLECYSTECTOMY TONSILLECTOMY PROCEDURE: HISTORICAL TONSILLECTOMY OTHER SURGICAL HISTORY PROCEDURE: HISTORY OTHER; COMMENT: multiple knee surgeries bilat had djd OTHER SURGICAL HISTORY 2003 PROCEDURE: ME THYROIDECTOMY TOTAL/COMPLETE; COMMENT: for pap CA TOTAL KNEE ARTHROPLASTY 2011 Bilateral PROCEDURE: ME ARTHRP KNE CONDYLE&PLATU MEDIAL&LAT COMPARTMENTS CERVICAL BIOPSY W/ LOOP ELECTRODE EXCISION PROCEDURE: ME CONIZATION CERVIX W/WO D&C RPR ELTRD EXC BREAST BIOPSY 2014 Right PROCEDURE: BX BREAST; PERC NEEDLE CORE W/IMAG GUID COLONOSCOPY 10/12/2009 PROCEDURE: HISTORICAL COLONOSCOPY; COMMENT: negative COLONOSCOPY 07/03/2016 PROCEDURE: HISTORICAL COLONOSCOPY; COMMENT: negative OTHER SURGICAL HISTORY Right PROCEDURE: LYMPH NODE BIOPSY SPCMN PATHOLOGY EXAM; COMMENT: submandibular gland removed BREAST SURGERY 2014 Right PROCEDURE: ME UNLISTED PROCEDURE BREAST; COMMENT: ca - lumpectomy HIP ARTHROPLASTY 09/04/2022 Left PROCEDURE: HISTORICAL HIP REPLACEMENT; COMMENT: dr. 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 DCIS (ductal carcinoma in si tu) of breast 05/30/2015 DX:DCIS (ductal carcinoma in situ) of breast Hypertension 07/16/2018 DX:Hypertension Atypical chest pain 07/16/2018 DX:Atypical chest pain; COMMENT: Normal angio 2002 Hypothyroidism 08/14/2005 DX:Hypothyroidis m; COMMENT: post thyroid excision for paipillaary cancer 2002 Obesity (BMI 30.0-34.9) 08/14/2005 DX:Obesi ty (BMI 30.0-34.9) Osteoarthrosis involving lower leg 09/25/2005 DX:Osteoarthrosis involving lower leg; COMMENT: Bilateral total knee replacements 2012 IMO Update Fall 2015 History of total bilateral k nee replacement (TKR) 04/28/2019 DX:History of total bilatera l knee replacement (TKR); COMMENT: bilateral Covid-19 DX:COVID-19 Prolonged Q-T interval on ECG DX :Prolonged Q-T interval on ECG Personal history of malignan t neoplasm of breast DX:Personal history of malig nant neoplasm of breast Family History Medical History Relation Name Comments Brain Aneurysm Aunt pat aunt Colon polyps Brother 1 dx age 36; ? # Hypertension Father Other: Aortic Aneurysm Father thora cic aortic and abdominal aneurysmsurvived; skin cancer melanoma at 42 Other: pacemaker Father Heart attack Maternal Grandfather in his 60s; Breast cancer Maternal Grandmother 60s a t age 95; unilateral Other: lymph node cancer Other 1 mat gr aunt- in 40s Leukemia Other 2 mat gr uncle Breast cancer Other 3 pat 1st cousin once removed Breast cancer Other 4 pat first cous in once removed Melanoma Other 5 at -remove d; nephew Diabetes Paternal Grandfather Breast cancer Paternal Grandmother 70s unilat eral; of a cerebral aneurysm in he 70s Heart attack Paternal Grandmother 70s Other: abdominal aneurysm Paternal Grandmother 70s Colon polyps Sister 1 dx age 39, #3 Colon cancer Uncle paternal; dx ag e 43 Ovarian cancer Neg Hx Relation Name Status Comments Aunt Brother 1 Brother 2 mi at age 35 an gioplasty Father Alive high triglyceri sourav htn Maternal Grandfather Maternal Grandmother 60s Mother Alive asthma Other 1 Other 2 Other 3 Other 4 Other 5 Paternal Grandfather Paternal Grandmother 70s Sister 1 Sister 2 etoh Sister 3 Alive Uncle Social History Tobacco Use Types Packs/Day Years Used Date Smoking Tobacco: Never Smokeless Tobacco: Never Tobacco Cessation:Counseling Given: Not Answered Alcohol Use Standard Drinks/Week Comments Yes 0 (1 standard drink = 0.6 oz pur e alcohol) Housing Instability Answer Date Recorde d Are you worried that in the next 2 months you may not have stable housing? No 06/03/2024 Food Access & Nutrition Answer Date Rec orded Do you have access to a vari ety of food including fruits and vegetables? Yes 06/03/2024 Access to Healthcare Answer Date Record ed Within the last 3 months, ho w many times did you visit the emergency department for your medical care? 1 06/03/2024 Health Literacy Answer Date Recorded How often do you need to hav e someone help you when you read instructions, pamphlets, or other written material from your doctor or pharmacy? Never 06/03/2024 Caregiver: How often do you need to have someone help you when you read instructions, pamphlets, or other written material from your doctor or pharmacy? Not on file 06/03/2024 Financial Risk Answer Date Recorded How hard is it for you to pa y for the very basics like food, housing, medical care, and air conditioning / heating? Not very hard 06/03/2024 Transportation Answer Date Recorded Has the lack of transportati on kept you from meetings, work, or from getting things needed for daily living? No Has the lack of transportati on kept you from medical appointments or from getting medications? No 06/03/2024 Social Isolation Answer Date Recorded How often do you feel lonely or isolated from th ose around you? Never 06/03/2024 Food Risk Answer Date Recorded Within the past 12 months we worried whether our food would run out before we got money to buy more. Never true 06/03/2024 Within the past 12 months th e food we bought just didn't last and we didn't have money to get more. Never true 06/03/2024 Dependent Care Answer Date Recorded Do you need help finding or paying for care for your loved ones. For example, child protection specialist or elderly care for an older adult? No 06/03/2024 Education Answer Date Recorded Do you think completing more education or training, like finishing a GED, going to college, or learning a trade, would be helpful for you? No 06/03/2024 Employment and Income Answer Date Recor ded During the last four weeks, have you been actively looking for work? No 06/03/2024 Living Situation Answer Date Recorded What is your living situation? 1 08/04/2023 Sex and Gender Information Value Date Recorded Sex Assigned at Not on file Gender Identity Not on file Sexual Orientation Not on file Job Start Date Occupation Industry Not on file Not on file Not on file Obstetrics History Para Term AB IAB SAB Ectopic Multiple Livin g Live Births 3 3 3 3 Date Outcome GA Total Labor Labor/2nd/3rd Weight Sex Type Anes PTL Ariana A1 A5 Name Clin Term Term Term Last Filed Vital Signs Vital Sign Reading Time Taken Comments Blood Pressure 111/78 07/07/2024 3:24 PM EST Pulse 85 07/07/2024 3:24 PM EST Temperature 36.6 ??C (97.8 ??F) 07/07/2024 3:24 PM ES T Respiratory Rate 14 06/03/2024 9:32 AM EST Oxygen Saturation 97% 06/03/2024 9:32 AM EST Inhaled Oxygen Concentration - - Weight 107 kg (236 lb) 07/07/2024 3:24 PM EST Height 175.3 cm (5' 9 ) 07/07/2024 3:24 PM EST Body Mass Index 34.85 07/07/2024 3:24 PM EST Plan of Treatment Upcoming Encounters Date Type Department Care Team (Late st Contact Info) Description 07/22/2024 4:45 PM EST Office Visit [place] [facility] [address] [place] [phone] Armando Laura MD [phone] [phone] Scheduled Procedures Name Priority Associated Diagnoses Date/Ti me 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 EXCISION BIOPSY LYMPH NODE SENTINEL BREAST Ductal carcinoma in situ (DCIS) of right breast INSERTION TISSUE CONVERTING TECHNICIAN Ductal carcinoma in situ (DCIS) of right breast Health Maintenance Due Date Last Done Comments COVID-19 Vaccine (#1) 1968 Pneumococcal Vaccine: Pediatrics (0 to 5 Years) and At-Risk Patients (6 to 64 Years) (1 of 2 - PCV) 1969 Hepatitis A Vaccines (1 of 2 - Risk 2-dose series) 1982 Zoster Vaccines (1 of 2) 1982 Cervical Cancer Screening: Pap Smear 06/25/2021 06/25/2018, 06/25/2018, 06/25/2018 Hepatitis B Vaccines (1 of 3 - Risk 3-dose series) 2023 RSV Immunization Patients 60+ Years Old (1 - Risk 60-74 years 1-dose series) 2023 Influenza Vaccine (#1) 2024 04/05/2014, 2006 Depression Screening 06/03/2025 06/03/2024 Social Influencers of Health Screening 06/03/2025 06/03/2024 Hypertension/CHF/CAD Annual BMP Blood Test 06/15/2025 06/15/2024, 05/31/2024, 10/09/2023 Breast Cancer Screening 06/14/2026 06/14/20 24, 06/09/2024, 06/04/2023, Additional history exists Colorectal Cancer Screening: Colonoscopy 01/03/2028 01/02/2023 DTaP,Tdap,and Td Vaccines (3 - Td or Tdap) 11/10/2028 11/10/2018, 07/27/2008 Cholesterol Screening (Lipid Panel) 05/31/2029 05/31/2024, 11/22/2022 HIV Screening Completed 07/28/2008 Hepatitis C Screening Completed 07/28/2008 HIB Vaccines Aged Out No longer eligi ble based on patient's age to complete this topic HPV Vaccines Aged Out No longer eligi ble based on patient's age to complete this topic IPV Vaccines Aged Out No longer eligi ble based on patient's age to complete this topic MMR Vaccines Aged Out No longer eligi ble based on patient's age to complete this topic Meningococcal ACWY Vaccine Aged Out N o longer eligible based on patient's age to complete this topic RSV Immunization Patients Under 20 months Aged Out No longer eligible based on patient's age to complete this topic Varicella Vaccines Aged Out No longer eligible based on patient's age to complete this topic Procedures Procedure Name Priority Date/Time Associated Diagnosis Comments MG STEREO BX BREAST PERC 1ST LESION RIGHT Routine 06/22/2024 2:35 PM EST Abnormal mammogram TISSUE EXAM Routine 06/22/2024 2:30 PM EST Abnormal mammogram BASIC METABOLIC PANEL Routine 06/15/2024 9:17 AM EST Hypokalemia COMPLETE BLOOD COUNT Routine 06/15/2024 9:17 AM EST Leukocytosis, unspecified type US BX BREAST PERC 1ST LESION LEFT Routine 06/15/2024 9:09 AM EST Abnormal mammogram TISSUE EXAM STAT 06/15/2024 8:58 AM EST Abnormal mammogram MG MAMMO DIGITAL DIAGNOSTIC CLIP POST US/MR GUIDE LEFT Routine 06/15/2024 8:50 AM EST Abnormal mammogram US BREAST LIMITED LEFT Routine 06/14/2024 3:05 PM EST Abnormal mammogram MG MAMMO DIGITAL DIAGNOSTIC W JUAN CARLOS BILAT Routine 06/14/2024 2:50 PM EST Abnormal mammogram MG MAMMO DIGITAL SCREENING W JUAN CARLOS BILAT Routine 06/09/2024 7:47 AM EST Encounter for screening mammogram for breast cancer CBC WITH AUTO DIFFERENTIAL Routine 05/31/2024 9:48 AM EST Fatty liver Secondary hypertension Hypothyroidism, unspecified type Mixed hyperlipidemia CBC AND DIFFERENTIAL Routine 05/31/2024 9:48 AM EST Fatty liver Secondary hypertension Hypothyroidism, unspecified type Mixed hyperlipidemia THYROID STIMULATING HORMONE Routine 05/31/2024 9:48 AM EST Fatty liver Secondary hypertension Hypothyroidism, unspecified type Mixed hyperlipidemia COMPREHENSIVE METABOLIC PANEL Routine 05/31/2024 9:48 AM EST Fatty liver Secondary hypertension Hypothyroidism, unspecified type Mixed hyperlipidemia LIPID PANEL WITH REFLEX TO DIRECT LDL Routine 05/31/2024 9:48 AM EST Fatty liver Secondary hypertension Hypothyroidism, unspecified type Mixed hyperlipidemia COLONOSCOPY Routine 01/02/2023 PAP SMEAR Routine 06/25/2018 HEPATITIS C SCREENING Routine 07/28/2008 HIV SCREENING Routine 07/28/2008 from Last 3 Months or Most Recently Relevant to Health Maintenance Results * MG Stereo Bx Breast Perc 1st Lesion Right (06/22/2024 2:35 PM EST) Anatomical Region Laterality Modality Breast Right Mammography 06/22/2024 3:36 PM EST Addenda Addendum by Mylene Brody MD on 06/28/2024 11:57 AM EST Addendum: Right breast, upper outer, middle depth, calcifications, top hat clip, stereotactic core biopsy: 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 Greatest length of invasive carcinoma: 0.6 mm De Queen score: Not applicable, microinvasion only In situ carcinoma: Present, high nuclear grade, comedo necrosis Lymphovascular invasion: Not identified Pathology is concordant with imaging findings and surgical consultation is recommended. Results and recommendation for surgical consultation discussed with the patient by telephone at 11:52 AM on 06/28/2024. ??Secure message sent to Kenia Marquez, nurse navigator at the [facility], who will arrange surgical consultation for the patient. -------- ADDENDUM -------- Dictated By: Mylene Brody Dictated Date: 06/28/2024 11:54 ET Assigned Physician: Mylene Brody Reviewed and Electronically Signed By: Mylene Brody Signed Date: 06/28/2024 11:57 ET Workstation ID: [id number] Transcribed By: Self Edit Transcribed Date: 06/28/2024 11:54 ET Impressions 06/22/2024 3:43 PM EST Successful stereotactic biopsy of right breast calcifications. ??Pathologic analysis is pending. BREAST DENSITY: B - There are scattered areas of fibroglandular density. BI-RADS CATEGORY: Waiting for Pathology RECOMMENDATION: Pathology pending for the right breast. MAMMO LOCATION: [facility], [address] [place] [address], [facility], . POS - [id number] -------- FINAL REPORT -------- Dictated By: Mylene Brody Dictated Date: 06/22/2024 15:36 ET Assigned Physician: Mylene Brody Reviewed and Electronically Signed By: Mylene Brody Signed Date: 06/22/2024 15:43 ET Workstation ID: [id number] Transcribed By: Self Edit Transcribed Date: 06/22/2024 15:36 ET Narrative 06/22/2024 3:43 PM EST EXAM: Stereotactic core biopsy right breast and unilateral right diagnostic mammogram HISTORY: Suspicious calcifications in the upper outer right breast. FINDINGS: Prior mammograms dated 06/09/2024 and 06/14/2024 were reviewed. Risks and benefits of the procedure including specific risks of hemorrhage and infection discussed with the patient before beginning the procedure. ??Written and verbal consent to proceed were given. The side of concern was confirmed with the patient prior to procedure. From above, the calcifications were localized. ??The overlying skin was prepped in with ChloraPrep. ??Skin was then anesthetized with 1% lidocaine. ??A small amount of deeper subcutaneous anesthesia with 1% lidocaine was then utilized. ??Further lavage was performed with lidocaine. After placing the needle uneventfully, a total of six 9-gauge vacuum-assisted core biopsies were obtained. Specimen radiographs demonstrate the targeted calcifications within the specimens. ?? A mini cork marker was then deployed. The needle was then removed and adequate hemostasis was achieved. ?? Final unilateral mammogram at the end of the procedure confirms biopsy of the appropriate area. Residual calcifications are present. ?? No significant hematoma apparent. Discharge instructions were reviewed with the patient and written instructions given. ?? Rasta SEAMAN IMG BI PROCEDURES * Tissue exam (06/22/2024 2:30 PM EST) Only the most recent of2 resultswithin the time period is included. Correction History This report is amended to correct omission of the words in situ after high grade ductal carcinoma in the diagnosis. No other changes are made. Dr. Everett is notified via secure chat on 07/07/24. 4:13 PM EST [facility] Addendum Breast Invasive Carcinoma Biomarkers: HER2: Negative (1+) All external controls stained appropriately Patients with breast cancers that are HER2 IHC 3+ or IHC 2+/JASPREET amplified may be eligible for several therapies that disrupt HER2 signaling pathways. Invasive breast cancers that test 'HER2-negative' (IHC 0, 1+ or 2+/JASPREET not-amplified) are more specifically considered 'HER2-negative for protein overexpression/gene amplification' since non-overexpressed levels of the HER2 protein may be present in these cases. Patients with breast cancers that are HER2 IHC 1+ or IHC 2+/JASPREET not amplified may be eligible for a treatment that targets non-amplified/non-ove rexpressed levels of HER2 expression for cytotoxic drug delivery (IHC 0 results do not result in eligibility currently). FFPE Block: A1 Cold Ischemia and Fixation Times: Meets requirements specified in the latest version of the ASCO/CAP guidelines These tests have not been validated for use on decalcified tissue, non-formalin fixed tissue, or tissue fixed outside of the ASCO/CAP guidelines. ASCO/CAP criteria for evaluation: HER2: Staining evaluation for HER2 (ASCO/CAP GUIDELINES 2018): - NEGATIVE (0): No staining or incomplete barely perceptible staining in <10 % of cells. - NEGATIVE (1+): Incomplete barely perceptible staining in >10 % of cells. - EQUIVOCAL (2+): Strong complete staining in 10% or less of cells or weak or moderate staining in >10 % cells. - POSITIVE (3+): Strong complete staining in more than 10% of cells. 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 Vic Murray performed second review of malignancy. Dr. Brody notified via secure chat of preliminary findings on 06/25/24 and final diagnosis on 06/28/24. 5 4:13 PM [facility] Clinical Information ? cancer Top hat clip lot # [id number] 4:13 PM [facility] Gross Description A. Breast, Right, upper outermiddle depth calcs: Labeled right upper breast . Received in formalin is a twelve chambered collection device, with chambers A, B, C, and E designated as containing calcifications per the specimen lid. Within chambers A, B, C, and D is a 1.3 cm aggregate of irregular to cylindrical yellow-mata fibrofatty breast tissue fragments. Within the remaining chambers is an additional 0.9 cm aggregate of irregular to cylindrical yellow-mata fibrofatty breast tissue fragments. The specimen is submitted in toto between sponges into cassettes as follows: 1, tissue containing calcifications within chambers A, B, C, and E, multiple pieces, x 3. 2, tissue within remaining chambers, multiple pieces, x 3 Time collected: 2:30 PM 06/22/2024 Time put in formalin: 2:35 PM 06/22/2024 Total cold ischemic time: 5 minutes Time tissue exits final stage of formalin on tissue processor: 9 PM 06/24/2024 Total fixation time (ideally between 6 and 72 hours): 55 hours JOVANNA 4:13 PM [facility] Special Stains Calponin and p63 stains with appropriate controls show loss of myoepithelial cells within the microinvasive carcinoma. Breast Invasive Carcinoma Biomarkers: Estrogen Receptor: Positive (>95% Positive nuclei, average intensity: moderate to strong) Internal controls tained appropriately Progesterone Receptor: Positive (60% Positive nuclei, average intensity: moderate) Internal controls tained appropriately All external controls stained appropriately Her2 will follow in an addendum. FFPE Block: A1 Cold Ischemia and Fixation Times: Meets requirements specified in the latest version of the ASCO/CAP guidelines These tests have not been validated for use on decalcified tissue, non-formalin fixed tissue, or tissue fixed outside of the ASCO/CAP guidelines. ASCO/CAP criteria for evaluation: ER: Staining evaluation ER: Low positive=1-10% positive nuclei, Positive >10% positive nuclei ME: Staining evaluation ME: Positive= >1% positive nuclei. Detection system: Polymer HRP, Le[facility] Laboratory-developed tests In Vitro Diagnostic: ER clone [id number] Balta Nelson, ME clone [id number] Leica 4:13 PM [facility] Disclaimer NOTE: The immunohistochemical tests and in situ hybridization tests were developed and their performance characteristics were determined by [facility]. They have not been cleared or approved by the U.S. Food and Drug Administration. The FDA has determined that such clearance or approval is not necessary. These tests are used for clinical purposes. They should not be regarded as investigational or for research. This laboratory is certified under the Clinical Laboratory Improvement Amendments of 1988 (CLIA) as qualified to perform high complexity clinical laboratory testing. (controls appropriate) Unless otherwise specified, all tissue is 10% NB formalin fixed and paraffin embedded. 4:13 PM [facility] Tissue Right breast structure / Unknown 06/22/2024 2:30 PM EST 06/24/2024 4:33 PM EST Comment:Top hat clip lot # [id number] Mylene Brody MD LAB PATHOLOGY ORDERA BLES [facility] [address] [place] [address], * (ABNORMAL) Complete blood count (06/15/2024 9:17 AM EST) WBC 6.6 4.8 - 10.8 K/mcL LAB HEMETOLOGY METHOD 06/15/2024 10:08 AM [facility] RBC 5.40(H) 3.80 - 4.80 M/mcL LAB HEMETOLOGY METHOD 06/15/2024 10:08 AM [facility] Hemoglobin 15.5 11.5 - 16.0 g/dL LAB HEMETOLOGY METHOD 06/15/2024 10:08 AM [facility] Hematocrit 49.2(H) 35.0 - 47.0 % LAB HEMETOLOGY METHOD 06/15/2024 10:08 AM [facility] MCV 91.3 79.0 - 98.0 FL LAB HEMETOLOGY METHOD 06/15/2024 10:08 AM [facility] MCH 28.8 27.0 - 32.0 pcg LAB HEMETOLOGY METHOD 06/15/2024 10:08 AM [facility] MCHC 31.5(L) 32.0 - 37.0 g/dL LAB HEMETOLOGY METHOD 06/15/2024 10:08 AM [facility] RDW 14.1 11.0 - 15.0 % LAB HEMETOLOGY METHOD 06/15/2024 10:08 AM [facility] Platelets 334 130 - 400 K/mcL LAB HEMETOLOGY METHOD 06/15/2024 10:08 AM [facility] MPV 9.9 7.0 - 11.0 FL LAB HEMETOLOGY METHOD 06/15/2024 10:08 AM EST [facility] NRBC 0.0 <1.0 % LAB HEMETOLOGY METHOD 06/15/2024 10:08 AM [facility] NRBC Absolute 0.00 <0.10 K/mcL LAB HEMETOLOGY METHOD 06/15/2024 10:08 AM [facility] Blood Venous blood specimen / Unknown Venipuncture / Unknown 06/15/2024 9:17 AM EST 06/15/2024 9:17 AM EST Lianet Salazar [facility] LAB BLOOD ORDERABLES [facility] [address] [place] [address], * (ABNORMAL) Basic metabolic panel (06/15/2024 9:17 AM EST) Sodium 139 133 - 145 mmol/L LAB CHEMISTRY METHOD 06/15/2024 1:28 PM [facility] Potassium 3.7 3.5 - 5.5 mmol/L LAB CHEMISTRY METHOD 06/15/2024 1:28 PM [facility] Chloride 99 96 - 110 mmol/L LAB CHEMISTRY METHOD 06/15/2024 1:28 PM [facility] CO2 34(H) 21 - 32 mmol/L LAB CHEMISTRY METHOD 06/15/2024 1:28 PM [facility] Anion Gap 6 3 - 11 LAB CHEMISTRY METHOD 06/15/2024 1:28 PM [facility] Glucose 111(H) 70 - 100 mg/dL LAB CHEMISTRY METHOD 06/15/2024 1:28 PM [facility] BUN 27(H) 5 - 25 mg/dL LAB CHEMISTRY METHOD 06/15/2024 1:28 PM [facility] Creatinine 0.96 0.50 - 1.10 mg/dL LAB CHEMISTRY METHOD 06/15/2024 1:28 PM EST [facility] eGFR 67 >=60 mL/min/1. 73m2 LAB CHEMISTRY METHOD 06/15/2024 1:28 PM EST [facility] Comment:Calculation based on the??Chronic Kidney Disease Epidemiology Collaboration (CKD-EPI) equation refit??without adjustment for race. BUN/Creatinine Ratio 28.1 LAB CHEMISTRY METHOD 06/15/2024 1:28 PM EST [facility] Calcium 9.5 8.5 - 10.5 mg/dL LAB CHEMISTRY METHOD 06/15/2024 1:28 PM EST [facility] Blood Venous blood specimen / Unknown Venipuncture / Unknown 06/15/2024 9:17 AM EST 06/15/2024 9:17 AM EST Lianet Salazar [facility] BLOOD ORDERABLES [facility] [address] [place] [address], [place] [phone] * US Bx Breast Perc 1st Lesion Left (06/15/2024 9:09 AM EST) Anatomical Region Laterality Modality Breast Left Ultrasound 06/15/2024 9:12 AM EST Impressions 06/17/2024 10:02 AM EST 1. Successful ultrasound-guided biopsy of a left breast retroareolar mass 2. Bilateral breast MRI with contrast is recommended, patient is scheduled for biopsy of the right breast. ?? SURGICAL PATHOLOGY REPORT DIAGNOSIS: Benign densely fibrous breast tissue with cysts Pathology findings are concordant with imaging findings. BIRADS category 2 - Benign findings RECOMMENDATION: Breast MRI is recommended. These findings were discussed with the patient via telephone on 10:00 AM on 06/17/2024 -------- FINAL REPORT -------- Dictated By: Veronica Akhtar Dictated Date: 06/15/2024 09:12 ET Assigned Physician: Veronica Akhtar Reviewed and Electronically Signed By: Veronica Akhtar Signed Date: 06/17/2024 10:02 ET Workstation ID: [id number] Transcribed By: Self Edit Transcribed Date: 06/15/2024 09:13 ET Narrative 06/17/2024 10:02 AM EST EXAM: Ultrasound guided core-needle biopsy of the left breast. HISTORY: Ultrasound-guided biopsy of left breast retroareolar mass COMPARISON: Ultrasound breast from 06/14/2024 CONSENT: The time-out, which included the woman's full name, date of , description of the expected procedure and procedure site, was performed immediately before the procedure to confirm woman's identity. Informed consent was obtained. PROCEDURE: An ultrasound guided biopsy was performed for the left breast retroareolar mass. The patient was placed in the supine position and the lesion was localized using real-time sonography. The skin was prepped in the usual manner and draped. Subcutaneous lidocaine was administered at the expected entry site. Additional subcutaneous anesthesia was provided. A skin jena was made using a scalpel. A 14-gauge spring breast biopsy needle was advanced to the preselected lesion. 5 core biopsy specimens were obtained and post-fire images documenting needle placement were recorded. Biopsy marker clip was inserted into the biopsy cavity under ultrasound guidance. Postprocedure mammogram demonstrates clip. Following the procedure, the biopsy site was compressed and cleaned. Steri- Strips and sterile gauze were applied and the patient was given post-biopsy instructions. The patient tolerated the procedure well and left the department in good condition. Specimens were placed in formalin and sent for pathologic analysis. Permanent images are saved to PACS. Procedure Note Veronica Akhtar MD - 06/17/2024 EXAM: Ultrasound guided core-needle biopsy of the left breast. HISTORY: Ultrasound-guided biopsy of left breast retroareolar mass COMPARISON: Ultrasound breast from 06/14/2024 CONSENT: The time-out, which included the woman's full name, date of ,description of the expected procedure and procedure site, was performedimmediately before the procedure to confirm woman's identity. Informed consent was obtained. PROCEDURE: An ultrasound guided biopsy was performed for the left breast retroareolarmass. The patient was placed in the supine position and the lesion was localizedusing real-time sonography. The skin was prepped in the usual manner anddraped. Subcutaneous lidocaine was administered at the expected entry site.Additional subcutaneous anesthesia was provided. A skin jena was madeusing a scalpel. A 14- gauge spring breast biopsy needle was advanced tothe preselected lesion. 5 core biopsy specimens were obtained andpost-fire images documenting needle placement were recorded. Biopsy marker clip was inserted into the biopsy cavity under ultrasoundguidance. Postprocedure mammogram demonstrates clip. Following the procedure, the biopsy site was compressed and cleaned.Steri-Strips and sterile gauze were applied and the patient was givenpost-biopsy instructions. The patient tolerated the procedure well and left the department in goodcondition. Specimens were placed in formalin and sent for pathologic analysis. Permanent images are saved to PACS. IMPRESSION: 1. Successful ultrasound-guided biopsy of a left breast retroareolarmass 2. Bilateral breast MRI with contrast is recommended, patient is scheduledfor biopsy of the right breast. SURGICAL PATHOLOGY REPORT DIAGNOSIS: Benign densely fibrous breast tissue with cysts Pathology findings are concordant with imaging findings. BIRADS category 2 - Benign findings RECOMMENDATION: Breast MRI is recommended. These findings were discussed with the patient via telephone on 10:00 Luisa 06/17/2024 -------- FINAL REPORT -------- Dictated By: Veronica Akhtar Dictated Date: 06/15/2024 09:12 ET Assigned Physician: Veronica Akhtar Reviewed and Electronically Signed By: Veronica Akhtar Signed Date: 06/17/2024 10:02 ET Workstation ID: [id number] Transcribed By: Self Edit Transcribed Date: 06/15/2024 09:13 ET [facility] IMG US PROCEDURES * MG Mammo Digital Diagnostic Clip Post US/MR Guide Left (06/15/2024 8:50 AM EST) Anatomical Region Laterality Modality Breast Left Mammography 06/15/2024 9:12 AM EST Impressions 06/17/2024 10:02 AM EST 1. Successful ultrasound-guided biopsy of a left breast retroareolar mass 2. Bilateral breast MRI with contrast is recommended, patient is scheduled for biopsy of the right breast. ?? SURGICAL PATHOLOGY REPORT DIAGNOSIS: Benign densely fibrous breast tissue with cysts Pathology findings are concordant with imaging findings. BIRADS category 2 - Benign findings RECOMMENDATION: Breast MRI is recommended. These findings were discussed with the patient via telephone on 10:00 AM on 06/17/2024 -------- FINAL REPORT -------- Dictated By: Veronica Akhtar Dictated Date: 06/15/2024 09:12 ET Assigned Physician: Veronica Akhtar Reviewed and Electronically Signed By: Veronica Akhtar Signed Date: 06/17/2024 10:02 ET Workstation ID: [id number] Transcribed By: Self Edit Transcribed Date: 06/15/2024 09:13 ET Narrative 06/17/2024 10:02 AM EST EXAM: Ultrasound guided core-needle biopsy of the left breast. HISTORY: Ultrasound-guided biopsy of left breast retroareolar mass COMPARISON: Ultrasound breast from 06/14/2024 CONSENT: The time-out, which included the woman's full name, date of , description of the expected procedure and procedure site, was performed immediately before the procedure to confirm woman's identity. Informed consent was obtained. PROCEDURE: An ultrasound guided biopsy was performed for the left breast retroareolar mass. The patient was placed in the supine position and the lesion was localized using real-time sonography. The skin was prepped in the usual manner and draped. Subcutaneous lidocaine was administered at the expected entry site. Additional subcutaneous anesthesia was provided. A skin jena was made using a scalpel. A 14-gauge spring breast biopsy needle was advanced to the preselected lesion. 5 core biopsy specimens were obtained and post-fire images documenting needle placement were recorded. Biopsy marker clip was inserted into the biopsy cavity under ultrasound guidance. Postprocedure mammogram demonstrates clip. Following the procedure, the biopsy site was compressed and cleaned. Steri- Strips and sterile gauze were applied and the patient was given post-biopsy instructions. The patient tolerated the procedure well and left the department in good condition. Specimens were placed in formalin and sent for pathologic analysis. Permanent images are saved to PACS. Procedure Note Veronica Akhtar MD - 06/17/2024 EXAM: Ultrasound guided core-needle biopsy of the left breast. HISTORY: Ultrasound-guided biopsy of left breast retroareolar mass COMPARISON: Ultrasound breast from 06/14/2024 CONSENT: The time-out, which included the woman's full name, date of ,description of the expected procedure and procedure site, was performedimmediately before the procedure to confirm woman's identity. Informed consent was obtained. PROCEDURE: An ultrasound guided biopsy was performed for the left breast retroareolarmass. The patient was placed in the supine position and the lesion was localizedusing real-time sonography. The skin was prepped in the usual manner anddraped. Subcutaneous lidocaine was administered at the expected entry site.Additional subcutaneous anesthesia was provided. A skin jena was madeusing a scalpel. A 14- gauge spring breast biopsy needle was advanced tothe preselected lesion. 5 core biopsy specimens were obtained andpost-fire images documenting needle placement were recorded. Biopsy marker clip was inserted into the biopsy cavity under ultrasoundguidance. Postprocedure mammogram demonstrates clip. Following the procedure, the biopsy site was compressed and cleaned.Steri-Strips and sterile gauze were applied and the patient was givenpost-biopsy instructions. The patient tolerated the procedure well and left the department in goodcondition. Specimens were placed in formalin and sent for pathologic analysis. Permanent images are saved to PACS. IMPRESSION: 1. Successful ultrasound-guided biopsy of a left breast retroareolarmass 2. Bilateral breast MRI with contrast is recommended, patient is scheduledfor biopsy of the right breast. SURGICAL PATHOLOGY REPORT DIAGNOSIS: Benign densely fibrous breast tissue with cysts Pathology findings are concordant with imaging findings. BIRADS category 2 - Benign findings RECOMMENDATION: Breast MRI is recommended. These findings were discussed with the patient via telephone on 10:00 Luisa 06/17/2024 -------- FINAL REPORT -------- Dictated By: Veronica Akhtar Dictated Date: 06/15/2024 09:12 ET Assigned Physician: Veronica Akhtar Reviewed and Electronically Signed By: Veronica Akhtar Signed Date: 06/17/2024 10:02 ET Workstation ID: [id number] Transcribed By: Self Edit Transcribed Date: 06/15/2024 09:13 ET [facility] IMG BI PROCEDURES * (ABNORMAL) US Breast Limited Left (06/14/2024 3:05 PM EST) Anatomical Region Laterality Modality Breast Left Ultrasound 06/14/2024 2:56 PM EST Impressions 06/14/2024 4:01 PM EST 1. Right breast upper outer middle depth calcifications are suspicious and require stereotactic biopsy 2. Left breast retroareolar focal asymmetry corresponds to a suspicious mass measuring 2.6 cm and requires ultrasound-guided biopsy ??Findings and recommendations were conveyed to the patient. ? BI-RADS CATEGORY: 4 - SUSPICIOUS RECOMMENDATION: Core biopsy of right breast recommended. ??Right breast upper outer middle depth calcifications require stereotactic biopsy Core biopsy of ??left breast recommended. ??Targeted left breast retroareolar suspicious mass requires ultrasound-guided biopsy Mammo Location: -------- FINAL REPORT -------- Dictated By: Veronica Akhtar Dictated Date: 06/14/2024 14:56 ET Assigned Physician: Veronica Akhtar Reviewed and Electronically Signed By: Veronica Akhtar Signed Date: 06/14/2024 16:01 ET Workstation ID: [id number] Transcribed By: Self Edit Transcribed Date: 06/14/2024 15:37 ET Narrative 06/14/2024 4:01 PM EST BILATERAL DIGITAL 3D DIAGNOSTIC MAMMOGRAPHY HISTORY: Workup for right breast upper outer middle depth calcifications and left retroareolar focal asymmetry COMPARISON: Mammogram from 06/09/2024 Technique: Left breast CC and MLO spot compression, full-field ML 3-D, right breast CC, MLO and ML magnification views FINDINGS: BREAST DENSITY: B - There are scattered areas of fibroglandular density. Right: Upper outer middle depth calcifications are suspicious and require stereotactic biopsy Left: Left breast retroareolar focal asymmetry persists on spot compression. ??Sonographic evaluation demonstrates a suspicious mass which corresponds to mammographic finding. EXAM: LEFT BREAST TARGETED ULTRASOUND EVALUATION HISTORY: ??Workup for right breast upper outer middle depth calcifications and left retroareolar focal asymmetry TECHNIQUE: Ultrasonographic examination is performed using a ??linear array transducer. Targeted left breast ultrasound in the retroareolar region for evaluation of mammographic finding. Real-time sonographic scanning was also performed by the radiologist FINDINGS: In the retroareolar region, there is an ovoid hypoechoic mass measuring 2.1 x 1.0 x 2.6 cm which corresponds to mammographic finding and is suspicious. Procedure Note Veronica Akhtar MD - 06/14/2024 BILATERAL DIGITAL 3D DIAGNOSTIC MAMMOGRAPHY HISTORY: Workup for right breast upper outer middle depth calcificationsand left retroareolar focal asymmetry COMPARISON: Mammogram from 06/09/2024 Technique: Left breast CC and MLO spot compression, full-field ML 3-D,right breast CC, MLO and ML magnification views FINDINGS: BREAST DENSITY: B - There are scattered areas of fibroglandular density. Right: Upper outer middle depth calcifications are suspicious and requirestereotactic biopsy Left: Left breast retroareolar focal asymmetry persists on spot compression.Sonographic evaluation demonstrates a suspicious mass which corresponds tomammographic finding. EXAM: LEFT BREAST TARGETED ULTRASOUND EVALUATION HISTORY: Workup for right breast upper outer middle depth calcificationsand left retroareolar focal asymmetry TECHNIQUE: Ultrasonographic examination is performed using a linear arraytransducer. Targeted left breast ultrasound in the retroareolar region forevaluation of mammographic finding. Real-time sonographic scanning wasalso performed by the radiologist FINDINGS: In the retroareolar region, there is an ovoid hypoechoic mass measuring2.1 x 1.0 x 2.6 cm which corresponds to mammographic finding and issuspicious. IMPRESSION: 1. Right breast upper outer middle depth calcifications are suspicious andrequire stereotactic biopsy 2. Left breast retroareolar focal asymmetry corresponds to a suspiciousmass measuring 2.6 cm and requires ultrasound-guided biopsy Findings and recommendations were conveyed to the patient. BI-RADS CATEGORY: 4 - SUSPICIOUS RECOMMENDATION: Core biopsy of right breast recommended. Right breast upper outer middledepth calcifications require stereotactic biopsy Core biopsy of left breast recommended. Targeted left breastretroareolar suspicious mass requires ultrasound-guided biopsy Mammo Location: -------- FINAL REPORT -------- Dictated By: Veronica Akhtar Dictated Date: 06/14/2024 14:56 ET Assigned Physician: Veronica Akhtar Reviewed and Electronically Signed By: Veronica Akhtar Signed Date: 06/14/2024 16:01 ET Workstation ID: [id number] Transcribed By: Self Edit Transcribed Date: 06/14/2024 15:37 ET [facility] IMG US PROCEDURES * (ABNORMAL) MG Mammo Digital Diagnostic w Juan Carlos bilat (06/14/2024 2:50 PM EST) Anatomical Region Laterality Modality Breast Bilateral Mammography 06/14/2024 2:56 PM EST Impressions 06/14/2024 4:01 PM EST 1. Right breast upper outer middle depth calcifications are suspicious and require stereotactic biopsy 2. Left breast retroareolar focal asymmetry corresponds to a suspicious mass measuring 2.6 cm and requires ultrasound-guided biopsy ??Findings and recommendations were conveyed to the patient. ? BI-RADS CATEGORY: 4 - SUSPICIOUS RECOMMENDATION: Core biopsy of right breast recommended. ??Right breast upper outer middle depth calcifications require stereotactic biopsy Core biopsy of ??left breast recommended. ??Targeted left breast retroareolar suspicious mass requires ultrasound-guided biopsy Mammo Location: -------- FINAL REPORT -------- Dictated By: Veronica Akhtar Dictated Date: 06/14/2024 14:56 ET Assigned Physician: Veronica Akhtar Reviewed and Electronically Signed By: Veronica Akhtar Signed Date: 06/14/2024 16:01 ET Workstation ID: [id number] Transcribed By: Self Edit Transcribed Date: 06/14/2024 15:37 ET Narrative 06/14/2024 4:01 PM EST BILATERAL DIGITAL 3D DIAGNOSTIC MAMMOGRAPHY HISTORY: Workup for right breast upper outer middle depth calcifications and left retroareolar focal asymmetry COMPARISON: Mammogram from 06/09/2024 Technique: Left breast CC and MLO spot compression, full-field ML 3-D, right breast CC, MLO and ML magnification views FINDINGS: BREAST DENSITY: B - There are scattered areas of fibroglandular density. Right: Upper outer middle depth calcifications are suspicious and require stereotactic biopsy Left: Left breast retroareolar focal asymmetry persists on spot compression. ??Sonographic evaluation demonstrates a suspicious mass which corresponds to mammographic finding. EXAM: LEFT BREAST TARGETED ULTRASOUND EVALUATION HISTORY: ??Workup for right breast upper outer middle depth calcifications and left retroareolar focal asymmetry TECHNIQUE: Ultrasonographic examination is performed using a ??linear array transducer. Targeted left breast ultrasound in the retroareolar region for evaluation of mammographic finding. Real-time sonographic scanning was also performed by the radiologist FINDINGS: In the retroareolar region, there is an ovoid hypoechoic mass measuring 2.1 x 1.0 x 2.6 cm which corresponds to mammographic finding and is suspicious. Procedure Note Veronica Akhtar MD - 06/14/2024 BILATERAL DIGITAL 3D DIAGNOSTIC MAMMOGRAPHY HISTORY: Workup for right breast upper outer middle depth calcificationsand left retroareolar focal asymmetry COMPARISON: Mammogram from 06/09/2024 Technique: Left breast CC and MLO spot compression, full-field ML 3-D,right breast CC, MLO and ML magnification views FINDINGS: BREAST DENSITY: B - There are scattered areas of fibroglandular density. Right: Upper outer middle depth calcifications are suspicious and requirestereotactic biopsy Left: Left breast retroareolar focal asymmetry persists on spot compression.Sonographic evaluation demonstrates a suspicious mass which corresponds tomammographic finding. EXAM: LEFT BREAST TARGETED ULTRASOUND EVALUATION HISTORY: Workup for right breast upper outer middle depth calcificationsand left retroareolar focal asymmetry TECHNIQUE: Ultrasonographic examination is performed using a linear arraytransducer. Targeted left breast ultrasound in the retroareolar region forevaluation of mammographic finding. Real-time sonographic scanning wasalso performed by the radiologist FINDINGS: In the retroareolar region, there is an ovoid hypoechoic mass measuring2.1 x 1.0 x 2.6 cm which corresponds to mammographic finding and issuspicious. IMPRESSION: 1. Right breast upper outer middle depth calcifications are suspicious andrequire stereotactic biopsy 2. Left breast retroareolar focal asymmetry corresponds to a suspiciousmass measuring 2.6 cm and requires ultrasound-guided biopsy Findings and recommendations were conveyed to the patient. BI-RADS CATEGORY: 4 - SUSPICIOUS RECOMMENDATION: Core biopsy of right breast recommended. Right breast upper outer middledepth calcifications require stereotactic biopsy Core biopsy of left breast recommended. Targeted left breastretroareolar suspicious mass requires ultrasound-guided biopsy Mammo Location: -------- FINAL REPORT -------- Dictated By: Veronica Akhtar Dictated Date: 06/14/2024 14:56 ET Assigned Physician: Veronica Akhtar Reviewed and Electronically Signed By: Veronica Akhtar Signed Date: 06/14/2024 16:01 ET Workstation ID: [id number] Transcribed By: Self Edit Transcribed Date: 06/14/2024 15:37 ET Rasta SEAMAN IMG BI PROCEDURES * (ABNORMAL) MG Mammo Digital Screening w Juan Carlos bilat (06/09/2024 7:47 AM EST) Anatomical Region Laterality Modality Breast Bilateral Mammography 06/09/2024 11:5 9 AM EST Impressions 06/09/2024 12:11 PM EST Microcalcifications in the right upper outer breast. ??Change in size and appearance of the focal asymmetry in the retroareolar left breast. ??Additional evaluation of both breasts is recommended as detailed. BI-RADS CATEGORY: 0 - INCOMPLETE - NEED ADDITIONAL IMAGING EVALUATION RECOMMENDATION: Additional left breast imaging recommended. Additional left breast imaging recommended. Ultrasound is recommended for the Left Breast. -------- FINAL REPORT -------- Dictated By: Cande Gurrola Dictated Date: 06/09/2024 11:59 ET Assigned Physician: Cande Gurrola Reviewed and Electronically Signed By: Cande Gurrola Signed Date: 06/09/2024 12:11 ET Workstation ID: [id number] Transcribed By: Self Edit Transcribed Date: 06/09/2024 11:59 ET Narrative 06/09/2024 12:11 PM EST EXAMINATION TYPE: MG MAMMO DIGITAL SCREENING W JUAN CARLOS BILAT DATE OF EXAM ORDERED: 06/09/2024 7:46 AM COMPARISON: Prior mammograms, latest from 06/04/2023. REASON FOR STUDY: ??Yearly screening examination. TECHNIQUE: Bilateral mediolateral oblique and craniocaudal views ??were obtained digitally with 3-D mammogram (digital breast tomosynthesis) with CAD. Computer- aided detection was utilized in evaluation of this examination (Meg; Reena). FINDINGS: There are stable post lumpectomy changes in the right breast. ??There is arm development of the grouping of microcalcifications in the right upper outer breast. ??Additional evaluation is recommended with magnification views in CC, MLO and straight lateral projections. On the left breast focal asymmetry behind the nipple appears to be slightly larger and more dense. ??There is slight interval change in the shape of the opacity. ??Additional evaluation is recommended with spot compression views in CC and MLO projection for field straight lateral view as well as ultrasound. ??We will contact the patient for the arrangements. BREAST DENSITY: B - There are scattered areas of fibroglandular density. Procedure Note Cande Gurrola MD - 06/09/2024 EXAMINATION TYPE: MG MAMMO DIGITAL SCREENING W JUAN CARLOS BILAT DATE OF EXAM ORDERED: 06/09/2024 7:46 AM COMPARISON: Prior mammograms, latest from 06/04/2023. REASON FOR STUDY: Yearly screening examination. TECHNIQUE: Bilateral mediolateral oblique and craniocaudal views wereobtained digitally with 3-D mammogram (digital breast tomosynthesis) withCAD. Computer- aided detection was utilized in evaluation of thisexamination (Terranova; iCAD). FINDINGS: There are stable post lumpectomy changes in the right breast. There isarm development of the grouping of microcalcifications in the right upperouter breast. Additional evaluation is recommended with magnificationviews in CC, MLO and straight lateral projections. On the left breast focal asymmetry behind the nipple appears to beslightly larger and more dense. There is slight interval change in theshape of the opacity. Additional evaluation is recommended with spotcompression views in CC and MLO projection for field straight lateral viewas well as ultrasound. We will contact the patient for thearrangements. BREAST DENSITY: B - There are scattered areas of fibroglandular density. IMPRESSION: Microcalcifications in the right upper outer breast. Change in size andappearance of the focal asymmetry in the retroareolar left breast.Additional evaluation of both breasts is recommended as detailed. BI-RADS CATEGORY: 0 - INCOMPLETE - NEED ADDITIONAL IMAGING EVALUATION RECOMMENDATION: Additional left breast imaging recommended. Additional left breast imagingrecommended. Ultrasound is recommended for the Left Breast. -------- FINAL REPORT -------- Dictated By: Cande Gurrola Dictated Date: 06/09/2024 11:59 ET Assigned Physician: Cande Gurrola Reviewed and Electronically Signed By: Cande Gurrola Signed Date: 06/09/2024 12:11 ET Workstation ID: [id number] Transcribed By: Self Edit Transcribed Date: 06/09/2024 11:59 ET Rasta SEAMAN IMG BI PROCEDURES * (ABNORMAL) Lipid panel with reflex to direct LDL (05/31/2024 9:48 AM EST) Cholesterol 172 0 - 200 mg/dL LAB CHEMISTRY METHOD 05/31/2024 1:37 PM EST [facility] Triglycerides 317(H) 0 - 150 mg/dL LAB CHEMISTRY METHOD 05/31/2024 1:37 PM EST [facility] HDL 59 >=40 mg/dL LAB CHEMISTRY METHOD 05/31/2024 1:37 PM EST [facility] LDL Calculated 50 0 - 100 mg/dL LAB CHEMISTRY METHOD 05/31/2024 1:37 PM EST [facility] VLDL Cholesterol Tony 63.4 mg/dL LAB CHEMISTRY METHOD 05/31/2024 1:37 PM EST [facility] Non HDL Chol. (LDL+VLDL) 113 <145 mg/dL LAB CHEMISTRY METHOD 05/31/2024 1:37 PM EST [facility] Chol/HDL Ratio 2.9 0.0 - 4.4 LAB CHEMISTRY METHOD 05/31/2024 1:37 PM EST [facility] Blood Venous blood specimen / Unknown Venipuncture / Unknown 05/31/2024 9:48 AM EST 05/31/2024 9:48 AM EST Rasta SEAMAN LAB BLOOD ORDERAB LES [facility] [address] [place] [address], * (ABNORMAL) CBC auto differential (05/31/2024 9:48 AM EST) WBC 13.0(H) 4.8 - 10.8 K/mcL LAB HEMETOLOGY METHOD 05/31/2024 1:19 PM [facility] RBC 5.30(H) 3.80 - 4.80 M/mcL LAB HEMETOLOGY METHOD 05/31/2024 1:19 PM [facility] Hemoglobin 15.4 11.5 - 16.0 g/dL LAB HEMETOLOGY METHOD 05/31/2024 1:19 PM [facility] Hematocrit 47.9(H) 35.0 - 47.0 % LAB HEMETOLOGY METHOD 05/31/2024 1:19 PM [facility] MCV 90.2 79.0 - 98.0 FL LAB HEMETOLOGY METHOD 05/31/2024 1:19 PM [facility] MCH 29.0 27.0 - 32.0 pcg LAB HEMETOLOGY METHOD 05/31/2024 1:19 PM [facility] MCHC 32.2 32.0 - 37.0 g/dL LAB HEMETOLOGY METHOD 05/31/2024 1:19 PM [facility] RDW 13.8 11.0 - 15.0 % LAB HEMETOLOGY METHOD 05/31/2024 1:19 PM [facility] Platelets 415(H) 130 - 400 K/mcL LAB HEMETOLOGY METHOD 05/31/2024 1:19 PM [facility] MPV 10.2 7.0 - 11.0 FL LAB HEMETOLOGY METHOD 05/31/2024 1:19 PM [facility] NRBC 0.0 <1.0 % LAB HEMETOLOGY METHOD 05/31/2024 1:19 PM [facility] NRBC Absolute 0.00 <0.10 K/mcL LAB HEMETOLOGY METHOD 05/31/2024 1:19 PM [facility] Neutrophils Relative 64.4 % LAB HEMETOLOGY METHOD 05/31/2024 1:19 PM [facility] Lymphocytes Relative 21.7 % LAB HEMETOLOGY METHOD 05/31/2024 1:19 PM [facility] Monocytes Relative 8.8 % LAB HEMETOLOGY METHOD 05/31/2024 1:19 PM [facility] Eosinophils Relative 3.8 % LAB HEMETOLOGY METHOD 05/31/2024 1:19 PM [facility] Basophils Relative 0.8 % LAB HEMETOLOGY METHOD 05/31/2024 1:19 PM [facility] Immature Granulocytes Relative 0.5 % LAB HEMETOLOGY METHOD 05/31/2024 1:19 PM [facility] Neutrophils Absolute 8.37(H) 1.50 - 7.00 K/mcL LAB HEMETOLOGY METHOD 05/31/2024 1:19 PM [facility] Lymphocytes Absolute 2.83 1.00 - 5.00 K/mcL LAB HEMETOLOGY METHOD 05/31/2024 1:19 PM [facility] Monocytes Absolute 1.14(H) 0.20 - 1.00 K/mcL LAB HEMETOLOGY METHOD 05/31/2024 1:19 PM [facility] Eosinophils Absolute 0.50 0.00 - 0.50 K/mcL LAB HEMETOLOGY METHOD 05/31/2024 1:19 PM [facility] Basophils Absolute 0.11 0.00 - 0.20 K/mcL LAB HEMETOLOGY METHOD 05/31/2024 1:19 PM [facility] Immature Granulocytes Absolute 0.07(H) 0.00 - 0.03 K/mcL LAB HEMETOLOGY METHOD 05/31/2024 1:19 PM [facility] Blood Venous blood specimen / Unknown Venipuncture / Unknown 05/31/2024 9:48 AM EST 05/31/2024 9:48 AM EST Rasta SEAMAN LAB BLOOD ORDERAB LES [facility] [address] [place] [address], * (ABNORMAL) Thyroid stimulating hormone (05/31/2024 9:48 AM EST) TSH <0.05(L) 0.40 - 4.00 mcIU/mL LAB CHEMISTRY METHOD 05/31/2024 1:42 PM [facility] Blood Venous blood specimen / Unknown Venipuncture / Unknown 05/31/2024 9:48 AM EST 05/31/2024 9:48 AM EST Rasta SEAMAN LAB BLOOD ORDERAB LES [facility] [address] [place] [address], [place] [phone] * (ABNORMAL) Comprehensive metabolic panel (05/31/2024 9:48 AM EST) Sodium 142 133 - 145 mmol/L LAB CHEMISTRY METHOD 05/31/2024 1:37 PM [facility] Potassium 3.1(L) 3.5 - 5.5 mmol/L LAB CHEMISTRY METHOD 05/31/2024 1:37 PM [facility] Chloride 102 96 - 110 mmol/L LAB CHEMISTRY METHOD 05/31/2024 1:37 PM [facility] CO2 31 21 - 32 mmol/L LAB CHEMISTRY METHOD 05/31/2024 1:37 PM [facility] Anion Gap 9 3 - 11 LAB CHEMISTRY METHOD 05/31/2024 1:37 PM [facility] Glucose 111(H) 70 - 100 mg/dL LAB CHEMISTRY METHOD 05/31/2024 1:37 PM [facility] BUN 29(H) 5 - 25 mg/dL LAB CHEMISTRY METHOD 05/31/2024 1:37 PM [facility] Creatinine 1.05 0.50 - 1.10 mg/dL LAB CHEMISTRY METHOD 05/31/2024 1:37 PM [facility] eGFR 61 >=60 mL/min/1. 73m2 LAB CHEMISTRY METHOD 05/31/2024 1:37 PM [facility] Comment:Calculation based on the??Chronic Kidney Disease Epidemiology Collaboration (CKD-EPI) equation refit??without adjustment for race. BUN/Creatinine Ratio 27.6 LAB CHEMISTRY METHOD 05/31/2024 1:37 PM [facility] Calcium 9.5 8.5 - 10.5 mg/dL LAB CHEMISTRY METHOD 05/31/2024 1:37 PM [facility] AST (SGOT) 17 10 - 42 unit/L LAB CHEMISTRY METHOD 05/31/2024 1:37 PM [facility] ALT (SGPT) 41 10 - 60 unit/L LAB CHEMISTRY METHOD 05/31/2024 1:37 PM [facility] Alkaline Phosphatase 82 42 - 121 unit/L LAB CHEMISTRY METHOD 05/31/2024 1:37 PM [facility] Total Protein 7.7 6.0 - 8.0 g/dL LAB CHEMISTRY METHOD 05/31/2024 1:37 PM [facility] Albumin 4.3 3.2 - 5.0 g/dL LAB CHEMISTRY METHOD 05/31/2024 1:37 PM [facility] Total Bilirubin 0.5 0.0 - 1.4 mg/dL LAB CHEMISTRY METHOD 05/31/2024 1:37 PM [facility] Blood Venous blood specimen / Unknown Venipuncture / Unknown 05/31/2024 9:48 AM EST 05/31/2024 9:48 AM EST Rasta SEAMAN LAB BLOOD ORDERAB LES [facility] [address] [place] [address], * Colonoscopy (01/02/2023) Colonoscopy no interpretation , abstracted Anatomical Region Laterality Modality Other Historical Provider MD JUDITH Dejesus * Pap smear (06/25/2018) 06/25/2018 Narrative HISTORICAL TESTING LAB RESULTING AGENCY - 07/01/2018 1:56 PM EST [id number] THINPREP PAP, IMAGED: NEGATIVE FOR SQUAMOUS INTRAEPITHELIAL LESION AND MALIGNANCY . REACTIVE CELLULAR CHANGES. FRANK NUÑEZ(ASCP) (CASE SCREENED 06 30 2018) PREMA SHUKLA M.D. , PATHOLOGIST (CASE ELECTRONICALLY SIGNED 06 30 2018) RESULT OF APTIMA HIGH RISK HPV ASSAY: HIGH RISK HPV: ??NEGATIVE (SEROTYPES 16,18,31,33,35,39,45,51,52,56,58,59,66,68) COMPLETED ON 2018-06-29 ADEQUACY: SATISFACTORY ENDOCERVICAL/TRANSFORMATION ZONE COMPONENT PRESENT. SOURCE: THINPREP PAP HPV ANY DX: ??REFLEX 16 AND 18, CERVICAL, IMAGED CLINICAL INFORMATION: HPV ANY DIAGNOSIS. PAP HX NEG, Z12.4 Roger De Jesus MD LAB CYTOLOGY OR DERABLES HISTORICAL TESTING LAB RESULTING AGENCY * HIV Screening (07/28/2008) Pathologist [facility] HIV Screening abstracted Historical Provider MD JUDITH Dejesus * Hepatitis C Screening (07/28/2008) Hepatitis C Screening abstracted Historical Provider MD HEALTH MAINTENANC E from Last 3 Months or Most Recently Relevant to Health Maintenance Care Teams Roentgenology Teacher Relationship Specialty Start Date End Date Rasta Ruelas PA [address] [place] [address] PCP - General Internal Medicine 05/31/24
--- OUTSIDE RECORDS SUMMARY | 2024-07-19 07:29 | XMS_ITS | Encounter Summary ---
Author Organization [facility] Address [address] [place] [address] Care Team Providers Care Outpatient Admitting Clerk Name Role Phone Rasta Ruelas Primary Care Provider + [phone] Reason for Referral * Consultation (Routine) - Pending Review Specialty Diagnoses / Procedures Referred By Lamar t Referred To Contact Endocrinology Diagnoses Hypothyroidism, unspecified type Rasta Ruelas PA [address] [place], [place] Nimesh Saucedo MD [address] [place] [address] [address] [place] [address] Referral ID Status Reason Start Date Expiration Date Visits Requested Visits Authorized [id number] Pending Review Specialty Services Required 07/08/2024 07/08/2025 1 1 Reason for Visit * Reason Onset Date Comments Referral 07/07/2024 DR NIMESH SAUCEDO Encounter Details Date Type Department Care Team (Late st Contact Info) Description 07/07/[address] [facility] [address] [place] [address] Rasta Ruelas PA [address] [place], [place] Referral (DR NIMESH SAUCEDO) Social History Tobacco Use Types Packs/Day Years Used Date Smoking Tobacco: Never Smokeless Tobacco: Never Alcohol Use Standard Drinks/Week Comments Yes 0 [...] for your loved ones. For example, child monitor or elderly care for an older adult? [...] file Not on file Not on file documented as of this encounter Progress Notes * URSZULA Sharp - 07/08/2024 12:38 PM EST Ok will placed referral * Farrah Savage - 07/07/2024 1:54 PM EST Patient was originally seen by Dr Saucedo at [facility], and wants to now follow him, now that he is at [facility]. Please send new referral. * Farrah Savage - 07/07/2024 1:39 PM EST Referral Request: What insurance does the patient have today? Payor: [facility] [facility] Farecast / Plan: [employer] [facility] [employer] HMO / Product Type: *No Product type* / Referrals cannot be processed if the insurance is not accurate. If the insurance listed above in red is NO BILLING INFORMATION FOUND FOR THIS ENCOUTNER The patients correct insurance must be obtained and registered in [facility] or their referral can not be processed. Is this a retro request? no. If yes for what date of service do you need the retro referral? not applicable Who is calling to request this referral? Patient If the caller is not the patient, what is their name? not applicable Ask the patient WHO referred them to this specialty: Not an initial visit; it is for follow up/continuation of care. Patients PCP is Suraj Magdaleno FIRST and LAST NAME of SPECIALIST PATIENT is seeing: DR NIMESH SAUCEDO What specialty is this? CONTACT LENS INSPECTOR DIAGNOSIS Patient is being seen for (Not a body part or a procedure): THYROID CANCER Have you seen this SPECIALIST for this PROBLEM/DX before? If YES, when? Yes. 4 YEARS AGO Have you checked REVIEW or the APPT DESK to see if this referral has already been done or has visits left? yes Is this visit: Initial Visit Address of Specialist: / [facility] [place] Phone # of Specialist: [phone] Fax #: (if applicable): UNKNOWN Does patient have an appointment scheduled?: no Date of appointment- (including a retro-request): TO BE BOOKED Is this appointment related to: Not MVA, worker compensation, or surgery related documented in this encounter Plan of Treatment Upcoming Encounters Date Type Department Care Team (Late st Contact Info) Description 07/22/2024 4:45 PM EST Office Visit Nephrology - [place] [address] [place] [address] Armando Laura MD [address] [address] Scheduled Procedures Name Priority Associated Diagnoses Date/Ti me 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 EXCISION BIOPSY LYMPH NODE SENTINEL BREAST Ductal carcinoma in situ (DCIS) of right breast INSERTION TISSUE CONTACT LENS EDGE BUFFER Ductal carcinoma in situ (DCIS) of right breast Scheduled Referrals Name Type Priority Associated Diagnoses Order Schedule Ambulatory referral to Endocrinology Outpatient Referral Routine Hypothyroidism, unspecified type 1 Occurrences starting 07/08/2024 until 07/07/2025 documented as of this encounter Visit Diagnoses Diagnosis Hypothyroidism, unspecified type- Primary documented in this encounter Additional Health Concerns Assessment Noted Time PHQ-9 Depression Total Score: 0 06/03/20 9:30 AM EST documented as of this encounter Care Teams Outpatient Admitting Clerk Relationship Specialty Start Date End Date Rasta Ruelas PA [address] [place] [address] PCP - General Internal Medicine 05/31/24 documented as of this encounter
--- OUTSIDE RECORDS SUMMARY | 2024-07-19 07:29 | XMS_ITS | Clinical Summary ---
Author Organization [facility] Address [address] [place] [address] Care Team Providers Care Customer Service Advocate Name Role Phone Unavailable Primary Care Provider Unavailabl e Social History Tobacco Use Types Packs/Day Years Used Date Smoking Tobacco: Never Assessed Sex and Gender Information Value Date Recorded Sex Assigned at Female 11/09/2019 8:23 AM EDT Gender Identity Not on file Sexual Orientation Not on file Job Start Date Occupation Industry Not on file Not on file Not on file Plan of Treatment Not on file Insurance Payer Benefit Plan / Group Subscriber ID Effective Dates Phone Address [facility] [id number] 2003-Present [address] [address] O
--- OUTSIDE RECORDS SUMMARY | 2024-07-19 07:29 | XMS_ITS | Encounter Summary ---
Author Organization [facility] Address [address] [place] [address] Care Team Providers Care Soccer Ball Assembler Name Role Phone Rasta Ruelas Primary Care Provider [phone] Encounter Details Date Type Department Care Team ([facility] Contact Info) Description 07/13/2024 Telephone Breast Care Center - [place] [address] [place] [id number] Miriam Everett MD [address] [place] [address] Social History Tobacco Use Types Packs/Day Years [...] care for your loved ones. For example, home child care provider or elderly care for an older adult? [...] as of this encounter Progress Notes * Miriam Everett MD - 07/13/2024 9:31 AM EST The patient has elected bilateral mastectomy with right SLNB. She would like reconstruction and prelim plan is bilat tissue expanders at time of mastectomies. I discussed her case with Dr. Hartmann. We will try to get her seen by Dr. Hartmann in early Jul. This appt may need to be scheduled in the breast center if his office is not ready yet. Will plan for surgery mid to late July. 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 EXCISION BIOPSY LYMPH NODE SENTINEL BREAST Ductal carcinoma in situ (DCIS) of right breast INSERTION TISSUE SUPERVISOR CONTINUOUS WELD PIPE MILL Ductal carcinoma in situ (DCIS) of right breast documented as of this encounter Visit Diagnoses Not on filedocumented in this encounter Additional Health Concerns Assessment Noted Time PHQ-9 Depression Total Score: 0 06/03/20 9:30 AM EST documented as of this encounter Care Teams Soccer Ball Assembler Relationship Specialty Start Date End Date Rasta Ruelas PA [address] [place] [address] PCP - General Internal Medicine 05/31/24 documented as of this encounter
--- OUTSIDE RECORDS SUMMARY | 2024-07-19 07:29 | XMS_ITS | Encounter Summary ---
Author Organization [facility] Address [address] [place] [address] Care Team Providers Care Seismographer Name Role Phone Rasta Ruelas Primary Care Provider [phone] Reason for Visit * Reason Onset Date Comments Appointment 06/29/2024 Encounter Details Date Type Department Care Team ([facility] st Contact Info) Description 06/29/2024 Telephone Breast Care Center [facility] [address] [place] [address] Kenia Marquez, RN Appointment Social History Tobacco Use Types Packs/Day Years [...] care for your loved ones. For example, childbirth educator or elderly care for an older adult? [...] as of this encounter Progress Notes * Kenia Marquez RN - 06/29/2024 10:00 AM EST I spoke with pt as she has been referred over from [facility] for positive bx. She was given appointment date and time along with our phone number documented in this encounter Plan of Treatment Upcoming Encounters Date Type Department Care Team (Late st Contact Info) Description 07/22/2024 4:45 PM EST Office Visit Nephrology [address] [address] Armando Laura MD [address] [address] Scheduled Procedures Name Priority Associated Diagnoses Date/Ti me 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 EXCISION BIOPSY LYMPH NODE SENTINEL BREAST Ductal carcinoma in situ (DCIS) of right breast INSERTION TISSUE NUCLEAR PLANT CONSTRUCTION WORKER Ductal carcinoma in situ (DCIS) of right breast documented as of this encounter Visit Diagnoses Not on filedocumented in this encounter Additional Health Concerns Assessment Noted Time PHQ-9 Depression Total Score: 0 06/03/20 24 9:30 AM EST documented as of this encounter Care Teams Seismographer Relationship Specialty Start Date End Date Rasta Ruelas PA [address] [place] [address] PCP - General Internal Medicine 05/31/24 documented as of this encounter
--- OUTSIDE RECORDS SUMMARY | 2024-07-19 07:29 | XMS_ITS | Clinical Summary ---
Author Organization [facility] Address [address] [place] [address] Care Team Providers Care Practice Architect Name Role Phone Unavailable Primary Care Provider Unavailabl e Allergies Active Allergy Reactions Criticality Noted Date Comments Adhesives/Tape Other (See Comments) High 09/06/2022 skin blisters Atenolol Cough Low 09/06/2022 Gabapentin Other (See Comments) 09/06/2022 double vision Hydrocodone-Acetaminophen GI Intolerance/Nausea/Vo miting,Itching Medium 09/06/2022 Hydromorphone GI Intolerance/Nausea/Vo miting Medium 09/06/2022 Meperidine GI Intolerance/Nausea/Vo miting Medium 09/06/2022 Morphine Hives Medium 09/06/2022 Oxycodone GI Intolerance/Nausea/Vo miting,Itching Medium 09/06/2022 Oxycodone-Aspirin GI Intolerance/Nausea/Vo miting,Itching Medium 09/06/2022 Statins Hepatitis/Abnormal Liver Function High 09/06/2022 Sulfa Antibiotics Rash/Dermatitis High 09/06/2022 Medications Medication Sig Dispensed Refills Start Date End Date Status PANTOprazole (PROTONIX) 40 MG EC tablet Take 40 mg by mouth daily. morning 09/06/2022 Active potassium chloride (K-TAB) 20 MEQ CR tablet Take 20 mEq by mouth 2 (two) times a day. 09/06/2022 Active senna (SENOKOT) 8.6 MG Tab tablet Take 1 tablet by mouth 2 (two) times a day. 09/06/2022 Active traMADol (ULTRAM) 50 MG tablet Take 50 mg by mouth 4 times daily (every 6 hours) as needed. 1-2 tabs q 6 hrs 09/06/2022 Active furosemide (LASIX) 40 MG tablet Take 40 mg by mouth 2 (two) times a day in the morning and the early evening. 80 mg in the morning and 40 mg q evening 09/06/2022 Active acetaminophen-co deine (TYLENOL #3) 300-30 MG per tablet Take 1 tablet by mouth 4 times daily (every 6 hours) as needed. 09/06/2022 Active aspirin enteric coated (aspirin) 325 MG EC tablet Take 325 mg by mouth 2 (two) times a day in the morning and the early afternoon. 09/06/2022 Active levothyroxine (Synthroid) 175 MCG tablet Take 175 mcg by mouth every morning. 1 tab q day Friday thru Sat, skip on Friday09/06/2022 Active diphenhydrAMINE (BENADRYL) 25 MG tablet Take 25 mg by mouth every 4 (four) hours. q 4 hrs as needed for itch 09/06/2022 Active polyethylene glycol (miraLAx) 17 g packet Take 17 g by mouth once. as needed for constipation 09/06/2022 Active alirocumab (PRALUENT) 75 MG/ML auto-injector Inject 75 mg under the skin every 14 days (2 weeks). 09/06/2022 Active clopidogrel (PLAVIX) 75 MG tablet Take 75 mg by mouth daily. on hold since 08/26/22 09/06/2022 09/09/2022 Discontinu ed (Med List Clean-up/Old Med - No E-Cancel/No AVS) Social History Tobacco Use Types Packs/Day Years Used Date Smoking Tobacco: Never Assessed OASIS D0700: Social Isolation Answer Da te Recorded Frequency of experiencing loneliness or isolatio n Never 09/20/2022 OASIS A1250: Transportation Answer Date Recorded Lack of Transportation (Medical) No 09/20/2022 Lack of Transportation (Non-Medical) No 09/20/2022 Patient Unable or Declines to Respond No 09/20/2022 Sex and Gender Information Value Date Recorded Sex Assigned at Not on file Gender Identity Not on file Sexual Orientation Not on file Last Filed Vital Signs Vital Sign Reading Time Taken Comments Blood Pressure 122/82 09/20/2022 10:00 AM EDT Pulse 84 09/20/2022 10:00 AM EDT Temperature 36.5 ??C (97.7 ??F) 09/20/2022 10:00 AM E DT Respiratory Rate 18 09/06/2022 12:20 PM EDT Oxygen Saturation 99% 09/20/2022 10:00 AM EDT Inhaled Oxygen Concentration - - Weight - - Height - - Body Mass Index - - Plan of Treatment Health Maintenance Due Date Last Done Comments Hepatitis C Virus Screening 1963 HIV Screening 1976 DTaP/Tdap/Td Vaccines (1 - Tdap) 1982 Pap Smear (Ages 21-65) 1984 Mammogram 2003 Colonoscopy 2008 Pneumococcal Vaccines 50+ (1 of 1 - PCV) 2013 Zoster (Shingles) Vaccine (1 of 2) 2013 RSV Vaccine 60 years and older and Patients (1 - Risk 60-74 years 1-dose series) 2023 Influenza Vaccine 01/22/2024 04/05/2014, 06/02/2007 COVID-19 Vaccine ( - 2023-2 5 season) 2024 Hepatitis B Vaccines Aged Out No long er eligible based on patient's age to complete this topic Pneumococcal Vaccine: Pediatric (0-5 Years) and At-Risk Patients (6 to 49 Years) Aged Out No longer eligible b ased on patient's age to complete this topic
--- OUTSIDE RECORDS SUMMARY | 2024-07-19 07:29 | XMS_ITS | Data Portability ---
Author Organization [facility], [facility] Address [address] [place] [address] Care Team Providers Care Office Assistant Name Role Phone [facility] Primary Care Provide r Assessment Encounter [...] ultrasound guidance. All questions and concerns addressed. gearrd Not available 03/09/2024 09:27:04 06/08/2024 06/08/2024 Reason [...] as needed. All questions and concerns addressed. Not available 06/08/2024 10:50:51 Plan of Treatment [...] tendon Referring Physician: Marshall Amor, Orthopedic Surgery, [id number] Encounter Date: 03/09/2024 Results Created Date Observation [...] Details Recorded Time Right Achilles tendiniti s 871165912788 102 Active 2015 Problem Code: M76.61; Problem Code Type: ICD-10; Status: 'A'; Not Available [facility] 4 11:13:51 Pain of right elbow joint 136627633573 23570 Active 2015 Problem Code: M25.521; Problem Code Type: ICD-10; Status: 'A'; Not Available [facility] 4 11:13:51 Implantat ion of joint prosthesi s Active 2011 Status: 'A'; Not Available [facility] 4 11:13:51 Idiopathi c osteoarth ritis 094351075 Active 2015 Problem Code: M19.071; Problem Code Type: ICD-10; Status: 'A'; Not Available [facility] 4 11:13:51 Tendiniti s of left gluteal tendon 282115872648 108 Active 2023 Rodrgiuez Henson, DPT [address] [facility] [address], [facility] [place], [address] , [facility] 4 12:29:11 Pain in right hip joint 350905416789 102 Active 2023 ELOISA mendoza [place] [facility] 4 11:29:13 Contact dermatiti s caused by urushiol from [facility] kristan 333717897 Active 2023 ELOISA mendoza MA [facility] 4 11:32:54 Pain of left hip joint 982523721349 100 Active 2023 ELOISA mendoza [facility] 4 12:11:27 Problem Notes None recorded. Procedures Surgical History Date Name Laterality Status Provider Name and Address Organization Details Recorded Time 4 19795 Therapeutic Exercise (1:1) completed Joie Crespo PTA [address], [place], [address], [facility] 12/01/2023 15:43:56 4 20906 Therapeutic Exercise (1:1) completed Rodriguez Henson DPT [address], [place], [address], [facility] 11/28/2023 08:54:49 4 71242 Therapeutic Exercise (1:1) completed Joie Crespo PTA [address], [place], [address], [facility] 11/26/2023 15:41:18 4 30348: Hot or Cold Pack completed Joie Crespo PTA [address], [place], [address], [facility] 11/26/2023 15:05:58 4 54581 Therapeutic Exercise (1:1) completed Rodriguez Henson DPT [address], [place], [address], [facility] 11/19/2023 10:41:08 4 74927 Therapeutic Exercise (1:1) cancelled Rodriguez Henson DPT [address], [place], [address], [facility] 11/10/2023 08:57:31 4 05360 Therapeutic Exercise (1:1) cancelled Joie Crespo PTA [address], [place], [address], [facility] 11/05/2023 16:56:50 4 56736 Therapeutic Exercise (1:1) completed Rodriguez Henson DPT [address], [place], [address], [facility] 11/04/2023 13:40:26 4 46135 Therapeutic Exercise (1:1) completed EB JosephT [address], [place], [address], [facility] 10/29/2023 15:43:28 4 37227 Therapeutic Exercise (1:1) completed EB JosephT [address], [place], [address], [facility] 10/27/2023 15:46:01 4 94539: Manual therapy completed EB JosephT [address], [place], [address], [facility] 10/27/2023 15:03:10 4 20851 Therapeutic Exercise (1:1) completed Joie Crespo PTA [address], [place], [address], [facility] 10/22/2023 16:09:54 4 36118: Hot or Cold Pack completed Joie Crespo PTA [address], [place], [address], [facility] 10/22/2023 16:18:54 4 79310: Manual therapy completed Joie Crespo PTA [address], [place], [address], [facility] 10/22/2023 15:58:14 4 20130 Therapeutic Exercise (1:1) completed Joie Crespo PTA [address], [place], [address], [facility] 10/17/2023 13:45:37 4 50423: Manual therapy completed Joie Crespo PTA [address], [place], [address], [facility] 10/20/2023 16:59:59 4 08771 Therapeutic Exercise (1:1) completed EB JosephT [address], [place], [address], [facility] 10/15/2023 09:49:35 4 21801: Manual therapy completed Rodriguez Henson DPT [address], [place], [address], [facility] 10/15/2023 09:49:32 4 38720 Therapeutic Exercise (1:1) completed Rodriguez Henson DPT [address], [place], [address], [facility] 10/13/2023 20:47:47 4 98057: Low complexity PT Eval completed EB JosephT [address], [place], [address], [facility] 10/13/2023 12:37:19 Imaging Results Imaging Date Name Status LastModified by Organiz ation Details LastModified Time 04/12/2023 imaging/diag nostic result completed [email or web address] Information not available 02/20/2024 04:56:05 Procedure Notes None recorded. Medical Equipment None Reported. Allergies Allergen ID Allergen Name Allergen Category Reaction Reaction Severity Criticality Documentation Date Start Date Code Code System Note Provider Name and Address Organization Details Recorded Time 82102 Percodan medicatio n Not available Not available Not available 08/25/20232011 15930 RxNorm Not Available [facility] 4 11:53:21 22877 Dilaudid medicatio n Not available Not available Not available 08/25/20232012 08134 3 RxNorm Not Available [facility] 4 11:53:21 78938 acetamino phen / hydrocodo ne medicatio n Not available Not available Not available 08/25/20232011 99123 2 RxNorm Not Available [facility] 4 11:53:21 57770 Demerol medicatio n Not available Not available Not available 08/25/20232011 53938 1 RxNorm Not Available [facility] 4 11:53:21 92498 morphine sulfate medicatio n Not available Not available Not available 08/25/20232011 57867 RxNorm Not Available [facility] 4 11:53:21 55746 acetamino phen / oxycodone medicatio n Not available Not available Not available 08/25/20232011 64994 3 RxNorm Not Available [facility] 4 11:53:21 59126 latex environme nt,medica tion Not available Not available Not available 08/25/20232022 84112 91 RxNorm Not Available [facility] 4 11:53:22 75117 Substance with sulfonami de structure and antibacte rial mechanism of action (substanc e) medicatio n Not available Not available Not available 08/25/20232011 15462 8003 SNOMED Not Available [facility] 4 11:53:22 Medications Name Sig Start Date [...] Available No t Available fentanyl APPLY DIRECTED [id number] NTITY 5 PATCHES 12/20 completed Statu s: [...] Updated DateTime 12/04/2023 172.085 cm 36.5 kg/m2 412663.98 g Dakotah Jennings [facility] 12/04/2023 08:27:01 Date Recorded Body height Body mass index (BMI) Body weight Provider Name and Address Organization Details Last Updated DateTime 03/09/2024 172.085 cm 36.5 kg/m2 163390.98 g LINA OSORIO [facility] 03/09/2024 08:43:04 Date Recorded Body height Body mass index (BMI) Body weight Provider Name and Address Organization Details Last Updated DateTime 06/08/2024 172.085 cm 36.5 kg/m2 032471.98 g LINA OSORIO [facility] 06/08/2024 08:09:54 Social History None recorded. Functional Status None recorded. Mental Status None recorded. Family History Nothing Reported. Medical History No medical history recorded. Gynecological HistoryNo gynecological history recorded. Obstetrics History GPAL:G 0 P 0 0 0 0 Past Encounters Encounter ID Performer Location Encounter Start Date Encounter Closed Date Diagnosis/Indication Diagnosis SNOMED-CT Code Diagnosis ICD10 Code Diagnosis Note [id number] MD Dave Gonzales [address] [place] [address] [place] [address] 09/30/2023 09:41:08 10/24/2023 10:51:16 Tendinitis of left gluteal tendon 9773898497 87511 M76.02 Postoperative care 69750 9007 Z48.89 [id number] EB JosephT [facility] [address] [place] [address] 10/13/2023 14:02:37 10/13/2023 20:48:40 Tendinitis of left gluteal tendon 0805288930 26138 M76.02 [id number] EB JospehT [facility] [address] [place] [address] 10/15/2023 14:29:12 10/15/2023 15:18:52 Tendinitis of left gluteal tendon 1254641925 39282 M76.02 [id number] EB JosephT [facility] [address] [place] [address] 10/20/2023 15:11:34 10/20/2023 17:02:29 Tendinitis of left gluteal tendon 9085017356 25003 M76.02 [id number] EB JosephT [facility] [address] [place] [address] 10/22/2023 15:05:54 10/22/2023 16:55:50 Tendinitis of left gluteal tendon 9436194330 46182 M76.02 [id number] EB JosephT [facility] [address] [place] [address] 10/27/2023 14:46:33 10/28/2023 07:39:06 Tendinitis of left gluteal tendon 3266435469 83990 M76.02 [id number] Rodriguez Henson DPT [facility] [address] [place] [address] 10/29/2023 14:56:34 10/29/2023 15:49:36 Tendinitis of left gluteal tendon 6584377484 27613 M76.02 [id number] EB JosephT [facility] [address] [place] [address] 11/04/2023 15:07:33 11/04/2023 16:38:55 Tendinitis of left gluteal tendon 6478542874 37993 M76.02 [id number] MD Dave Gonzales [address] [place] [address] 11/07/2023 10:20:07 12/02/2023 12:17:18 Pain in right hip joint 7830470679 18603 M25.551 Postoperative care 11570 9007 Z48.89 [id number] Rodriguez Henson, EBT [facility] [address] [place] [address] 11/19/2023 10:31:53 11/19/2023 11:03:43 Tendinitis of left gluteal tendon 6455096641 45169 M76.02 [id number] Rodriguez Henson DPT [facility] [address] [place] [address] 11/26/2023 14:48:26 11/26/2023 15:44:39 Tendinitis of left gluteal tendon 1441309008 57106 M76.02 [id number] EB JosephT [facility] [address] [place] [address] 11/28/2023 07:46:27 11/28/2023 09:20:19 Tendinitis of left gluteal tendon 1495224268 53927 M76.02 [id number] EB JosephT [facility] [address] [place] [address] 12/01/2023 15:15:09 12/01/2023 15:44:29 Tendinitis of left gluteal tendon 1402842777 35761 M76.02 [id number] MD Dave Gonzales [address] [place] [address] 12/04/2023 08:19:33 12/30/2023 10:44:15 Postoperative care 595102741 Z48.89 [id number] MD Dave Gonzales [address] [place] [address] 03/09/2024 08:22:21 03/30/2024 08:37:56 Strain of hamstring tendon 008558854 S76.312A [id number] [facility] [address] [place] [address] 06/08/2024 07:52:27 06/29/2024 12:36:55 Surgical follow-up 832611707 Z48.89 Hamstring injury 9942961 09 M76.892 Health Concerns Section Related Observation LastModified by Organization Detai ls LastModified Time None Recorded Concern Status LastModified by Organization Details LastModified Time None Recorded Advance Directives Directive None Recorded Payers Encounter Date Sequence Insurance Name Policy Number Policy Berg Covered Member ID Berg Member ID Guarantor Name 11/28/2023 1 [facility]) [id number] 1 Leydi A A Miller [id number] Leydi A Miller 12/01/[address] [place] [address]) [id number] 1 Leydi A A Miller [id number] Leydi A Miller 12/04/[address] [place] [address]) [id number] 1 Leydi A A Miller [id number] Leydi A Miller 03/09/2024 1 [facility]) [id number] 1 Leydi A A Miller [id number] Leydi A Miller 06/08/[address] [place] [address]) [id number] 1 Leydi A A Miller [id number] Leydi A Miller Notes Date Note Type Note Provider Name and Address Organization Details Recorded Time 11/28/2023 text/html Patient feels li ke she is doing better but still gets that clicking in her hip. Rodriguez Henson, DPT [address], [place], [address], [facility] 11/28/2023 09:20:11 12/01/2023 text/html Patient feels about the same as before, but c/o of burning sensation she experienced today for about an hour when she was sitting, but not at present walking in. Joie Crespo, ROTO MIXER OPERATOR [address], [place], [address], [facility] 12/01/2023 15:44:23 OBGyn Episode No OBEpisode recorded.
--- OUTSIDE RECORDS SUMMARY | 2024-07-19 07:29 | XMS_ITS | Encounter Summary ---
Author Organization [facility] Address [address] [place] [address] Care Team Providers Care Urology Physician Name Role Phone Rasta Ruelas Primary Care Provider [phone] Reason for Referral * Consultation (Routine) - Authorized Specialty Diagnoses / Procedures Referred By Contac t Referred To Contact Hematology and Oncology Diagnoses Ductal carcinoma in situ (DCIS) of right breast Miriam Rainey MD [address] [facility] [address] [place] [address] [facility] Hematology Oncology [address] [place] [address] Referral ID Status Reason Start Date Expiration Date Visits Requested Visits Authorized [id number] Authorized Specialty Services Required 07/13/2024 07/13/2025 1 1 Reason for Visit * Reason Comments Consult Encounter Details Date Type Department Care Team ([facility] st Contact Info) Description 07/07/2024 3:15 PM EST Consult Breast Care Center [facility] [address] [facility] [address] [place] [id number] Miriam Rainey MD 175 [facility] [address] [place] [address] Ductal carcinoma in situ (DCIS) of right breast (Primary Dx); History of breast cancer; History of therapeutic radiation Social History Tobacco Use Types Packs/Day Years [...] on file documented as of this encounter Last Filed Vital Signs Vital Sign Reading Time Taken Comments Blood Pressure 111/78 07/07/2024 3:24 PM EST Pulse 85 07/07/2024 3:24 PM EST Temperature 36.6 ??C (97.8 ??F) 07/07/2024 3:24 PM ES T Respiratory Rate - - Oxygen Saturation - - Inhaled Oxygen Concentration - - Weight 107 kg (236 lb) 07/07/2024 3:24 PM EST Height 175.3 cm (5' 9 ) 07/07/2024 3:24 PM EST Body Mass Index 34.85 07/07/2024 3:24 PM EST documented in this encounter Progress Notes * Miriam Rainey MD - 07/07/2024 3:15 PM EST REASON FOR VISIT: Breast cancer HPI: This is a very pleasant 59-year-old patient who presents for consultation regarding a new diagnosisof breast cancer. The patient is accompanied in the office by her . She routinely performs SBE. No breast related complaints. She denies change in the breast skin, palpable mass, or nipple discharge. Notes right breast is smaller than the left breast. Screening mammogram demonstrated bilateral abnormalities, as below. Bilateral diagnostic imaging and subsequent biopsies were performed, as below. She is s/p right BCS for HR+ DCIS by Dr. Tariq in May 2015. She completed adjuvant WBRT. She declined ET due to S/E. She tested negative for BRCA 1/2 at that time. Hx TIA x2. Receives Repatha injections. HTN. 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 History left THR. Hip dislocation with surgical stabilization 07/2023. Hx panniculectomy, emergency ELIJAH, abdominal wall mesh repair of some type. She underwent dx laparoscopy with CHASTITY Jun 2019. She has a severe reaction to narcotics with the exception of Fentanyl. She is able to tolerate codeine. Pathology: 06/22/2024 Right breast, upper outer, middle depth, calcifications, top hat clip, stereotactic core biopsy: High grade ductal carcinoma in situ with microinvasive carcinoma (ER+ AR+) Greatest length of invasive carcinoma: 0.6 mm [place] score: Not applicable, microinvasion only In situ carcinoma: Present, high nuclear grade, comedo necrosis Lymphovascular invasion: Not identified Estrogen Receptor: Positive (>95% Positive nuclei, average intensity: moderate to strong) Internal controls stained appropriately Progesterone Receptor: Positive (60% Positive nuclei, average intensity: moderate) Internal controls stained appropriately All external controls stained appropriately HER2: Negative (1+) 06/15/2024 Left breast, 12 o'clock, ribbon clip, ultrasound-guided core biopsy: Benign densely fibrous breast tissue with cysts No atypia or neoplasm identified Breast Cancer Risk Screening: Recent breast trauma? no Prior breast infection? no Prior breast biopsy? Hx right breast cyst. See HPI. Prior chest radiation? See HPI. History and duration of hormone use: See HPI. Age at menarche: 9 Age at menopause: ELIJAH age 33. Age at 1st live : 21 # gestations/completed pregnancies: Family oncologic history: - MGM breast CA. - PGM breast CA - PU colon CA age 40 - F melanoma Family or personal history of genetic testing or mutations: Prior BRCA 1/2 testing negative. Review of Systems The following symptom list was reviewed with the patient: GENERAL: Fevers, chills, sweats, change in weight, fatigue or malaise HEENT: Changes in hearing or vision, nasal problems NECK: Lumps, goiter, or significant neck swelling RESPIRATORY: Cough, wheezing, shortness of breath, pleuritic chest pain CARDIOVASCULAR: Chest pain, leg swelling or palpitations BREAST: see HPI GI: Abdominal discomfort, blood in stools or black stools : Dysuria, frequency or incontinence BOOM CRANE OPERATOR: Abnormal vaginal bleeding or abnormal vaginal discharge MUSCULOSKELETAL: Joint pain or swelling, back pain, or muscle pain SKIN: Lesions, rash or itching PSYCH: Sleep disturbance or depression HEMATOLOGY/LYMPHOLOGY: Prolonged bleeding, easy bruisability or swollen nodes ENDOCRINE: Cold or heat intolerance, polyuria, polydipsia or goiter NEURO: Persistent headache, syncope, seizures, weakness or numbness Patient reported the following as positive: See HPI; chills, sweats, FARAH, intolerance to heat and cold. PAST MEDICAL HISTORY: I personally reviewed the following past medical history with the patient and updated the records as appropriate. 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 Hypertension 07/16/2018 DX:Hypertension Hypothyroidism 08/14/2005 DX:Hypothyroidism; COMMENT: post thyroid excision for paipillaary cancer 2002 Mixed hyperlipidemia 08/14/2005 DX:Mixed hyperlipidemia Obesity (BMI 30.0-34.9) 08/14/2005 DX:Obesity (BMI 30.0-34.9) Osteoarthrosis involving lower leg 09/25/2005 DX:Osteoarthrosis involving lower leg; COMMENT: Bilateral total knee replacements 2011 IMO Update Fall 2015 Personal history of malignant neoplasm of breast DX:Personal history of malignant neoplasm of breast Prolonged Q-T interval on ECG DX:Prolonged Q-T interval on ECG Raynaud's syndrome 08/14/2005 DX:Raynaud's syndrome Residual hemorrhoidal skin tag 10/12/2009 DX:Residual hemorrhoidal skin tag PAST SURGICAL HISTORY: I personally reviewed the following past surgical history with the patient and updated the records as appropriate. Past Surgical History: Procedure Laterality Date ABDOMINAL SURGERY PROCEDURE: HISTORICAL ABDOMINAL SURGERY; COMMENT: abdominal surgery for musculature after hysterectomy BREAST BIOPSY Right 2014 PROCEDURE: BX BREAST; PERC NEEDLE CORE W/IMAG GUID BREAST SURGERY Right 2014 PROCEDURE: AR UNLISTED PROCEDURE BREAST; COMMENT: ca - lumpectomy CERVICAL BIOPSY W/ LOOP ELECTRODE EXCISION PROCEDURE: AR CONIZATION CERVIX W/WO D&C RPR ELTRD EXC CHOLECYSTECTOMY PROCEDURE: HISTORICAL CHOLECYSTECTOMY COLONOSCOPY 10/12/2009 PROCEDURE: HISTORICAL COLONOSCOPY; COMMENT: negative COLONOSCOPY 07/03/2016 PROCEDURE: HISTORICAL COLONOSCOPY; COMMENT: negative COLONOSCOPY 01/02/2023 PROCEDURE: HISTORICAL COLONOSCOPY; COMMENT: simon - diverticula, 5 years HIP ARTHROPLASTY Left 09/04/2022 PROCEDURE: HISTORICAL HIP REPLACEMENT; COMMENT: dr. russell OTHER SURGICAL HISTORY 1999 PROCEDURE: HISTORICAL SUPRACERVICAL HYSTERECTOMY W/O BSO; COMMENT: still has left ovary OTHER SURGICAL HISTORY PROCEDURE: HISTORY OTHER; COMMENT: multiple knee surgeries bilat had djd OTHER SURGICAL HISTORY 2003 PROCEDURE: AR THYROIDECTOMY TOTAL/COMPLETE; COMMENT: for pap CA OTHER SURGICAL HISTORY Right PROCEDURE: LYMPH NODE BIOPSY SPCMN PATHOLOGY EXAM; COMMENT: submandibular gland removed TONSILLECTOMY PROCEDURE: HISTORICAL TONSILLECTOMY TOTAL KNEE ARTHROPLASTY Bilateral 2011 PROCEDURE: AR ARTHRP KNE CONDYLE&PLATU MEDIAL&LAT COMPARTMENTS SOCIAL HISTORY: I personally reviewed the following social history with the patient and updated the records as appropriate. Social History Socioeconomic History Marital status: Spouse name: Not on file Number of children: Not on file Years of education: Not on file Highest education level: Not on file Occupational History Not on file Tobacco Use Smoking status: Never Smokeless tobacco: Never Substance and Sexual Activity Alcohol use: Yes Drug use: No Sexual activity: Not on file Comment: - 3 sons, 3 more kids with Other Topics Concern Not on file Social History Narrative Not on file FAMILY HISTORY: I personally reviewed the following family medical history with the patient and updated the recordsas appropriate. Please refer to HPI for additional information. Family History Problem Relation Name Age of Onset Hypertension Father Other (Other: Aortic Aneurysm) Father 36.00 thoracic aortic and abdominal aneurysmsurvived; skin cancer melanoma at 42 Other (Other: pacemaker) Father Colon polyps Sister dx age 39, #3 Colon polyps Brother dx age 36; ? # Breast cancer Maternal Grandmother 60s 70.00 at age 95; unilateral Heart attack Maternal Grandfather in his 60s; Heart attack Paternal Grandmother 70s Breast cancer Paternal Grandmother 70s 70.00 unilateral; of a cerebral aneurysm in he 70s Other (Other: abdominal aneurysm) Paternal Grandmother 70s Diabetes Paternal Grandfather Brain Aneurysm Aunt 36.00 pat aunt Colon cancer Uncle 43.00 paternal; dx age 43 Other (Other: lymph node cancer) Other 40.00 mat gr aunt- in 40s Leukemia Other 60.00 mat gr uncle Breast cancer Other 60.00 pat 1st cousin once removed Breast cancer Other 60.00 pat first cousin once removed Melanoma Other at -removed; nephew Ovarian cancer Neg Hx ACTIVE MEDICATIONS: Medication list was reviewed/updated with the patient. Outpatient Medications Marked as Taking for the 07/07/24 encounter (Consult) with Miriam Rainey MD Medication Sig Dispense Refill aspirin 81 mg EC tablet Take 81 mg by mouth daily. furosemide (LASIX) 40 mg tablet TAKE 2 TABLETS BY MOUTH EVERY MORNING AND 1 TABLET EVERY EVENING ASDIRECTED. 90 tablet 1 levothyroxine (Synthroid) 175 mcg tablet Take 1 tablet (175 mcg total) by mouth 1 (one) time each day. potassium chloride 20 mEq tablet extended release Take 1 tablet by mouth 2 (two) times a day. Repatha SureClick 140 mg/mL pen injector injection INJECT 140MG UNDER THE SKIN EVERY 2 WEEKS ALLERGIES: Allergies Allergen Reactions Hydrocodone-Acetaminophen Nausea And Vomiting Hydromorphone Hcl Nausea And Vomiting Morphine Sulfate Nausea And Vomiting Oxycodone-Aspirin Nausea And Vomiting Atenolol Other Reaction(s): Diagnosed by allergy testing severe depressions Atorvastatin Other Reaction(s): Flushing, feeling of warmth, OTHER Heart palpitation Gabapentin Enacarbil Meperidine Hcl Nausea And Vomiting Other Seasonal Allergies Other Reaction(s): Runny Nose/Rhinitis Sulfa (Sulfonamide Antibiotics) PHYSICAL EXAM: Visit Vitals BP 111/78 Pulse 85 Temp 36.6 ??C (97.8 ??F) Ht 1.753 m (69 ) Wt 107 kg (236 lb) BMI 34.85 kg/m?? OB Status Hysterectomy Smoking Status Never BSA 2.22 m?? GENERAL: Awake, alert, and in no acute distress. EYES: Pupils equal, round. Anicteric sclera. NECK: Thyroid midline and without palpable mass, non-tender, no goiter. LUNGS: Unlabored breathing, no wheezing. CBE: The exam procedure was described and informed consent was obtained. Examined in supine positions. Right breast volume < left breast with tissue changes consistent with prior radiation treatments. Overall appearance of skin, nipples, and areolas is without erythema, induration, peau d???orange, nipple retraction, or ulceration. No nipple discharge. No appreciable mass. No overlying skin orvascular abnormality. LYMPH NODES: Axillary, clavicular, and cervical lymph node basins without palpable abnormality. EXTREMITIES: Warm, well-perfused, no pretibial edema. SKIN: No rash or lesions noted. NEURO: Alert and oriented x3, motor and sensory grossly intact. LABS: Lab results, as listed below, were reviewed and discussed with the patient. Lab Results Component Value Date HGBA1C 5.6 07/06/2015 Lab Results Component Value Date WBC 6.6 06/15/2024 HGB 15.5 06/15/2024 HCT 49.2 (H) 06/15/2024 MCV 91.3 06/15/2024 PLT 334 06/15/2024 IMAGING: The following imaging results were personally reviewed, including reports and associated films. Findings were discussed with the patient. 06/09/2024 Screening mammogram BREAST DENSITY: B - There are scattered areas of fibroglandular density. IMPRESSION: Microcalcifications in the right upper outer breast. Change in size and appearance of the focal asymmetry in the retroareolar left breast. Additional evaluation of both breasts is recommended as detailed. BI-RADS CATEGORY: 0 - INCOMPLETE - NEED ADDITIONAL IMAGING EVALUATION 06/14/2024 Bilat diag mammo with left breast u/s FINDINGS: In the retroareolar region, there is an ovoid hypoechoic mass measuring 2.1 x 1.0 x 2.6 cm which corresponds to mammographic finding and is suspicious. IMPRESSION: 1. Right breast upper outer middle depth calcifications are suspicious and require stereotactic biopsy 2. Left breast retroareolar focal asymmetry corresponds to a suspicious mass measuring 2.6 cm and requires ultrasound-guided biopsy BI-RADS CATEGORY: 4 - SUSPICIOUS RECOMMENDATION: Core biopsy of right breast recommended. Right breast upper outer middle depth calcifications require stereotactic biopsy Core biopsy of left breast recommended. Targeted left breast retroareolar suspicious mass requires ultrasound-guided biopsy ASSESSMENT & PLAN: Breast cancer. The patient presents with a nonpalpable right HG DCIS with microinvasion associated with calcifications in the UOQ of the breast; ER +, AR +, HER2/lorena IHC negative. AJCC 8th edition staging - [id number], CPS 0. She is post- menopausal. There is family history of breast cancer. She is s/p treatment of an ipsilateral DCIS in 05/2015. Prior right breast WBRT. The biopsy findings were discussed in detail with patient and her . An overview of the management of breast cancer was provided. Utilizing guidelines from the NCCN, wediscussed the indications for neoadjuvant therapy. Neoadjuvant therapy is not indicated based on clinical stage and pathology. She is a candidate for upfront surgery. We discussed mastectomy. We discussed data evaluating repeat BCS +/- repeat WBRT versus PBI versus no additional XRT. Risks/benefitsof each surgical modality were reviewed. We discussed options for post-mastectomy reconstruction. We discussed contralateral breast cancer risk. She is interested in bilateral mastectomy. The procedure was described. The risks, benefits, and alternatives to surgery were detailed, including need for re-operation dependent on final pathology results, positive margins, bleeding, infection, seroma, poor wound healing, flap ischemia/necrosis, asymmetry, vascular injury, nerve injury (which could result in chronic pain, numbness, and /or paresthesias), chest wall injury, scarring, disease recurrence, anesthetic reactions. We also discussed the role of axillary staging for her clinically negative axilla in the setting of DCIS and proposed mastectomy. SLNB was recommended. Additional risks associated with axillary staging were discussed, including risks of nerve injury, reaction to mapping agents, muscle atrophy, numbness, paresthesias, lymphedema, seroma. We discussed the role of adjuvant radiation therapy, chemotherapy, and hormonal therapy. Referral to reconstructive surgery is indicated at present. We will coordinate an appointment with Dr. Hartmann for consideration of staged implant based reconstruction. She has had prior extensive abdominal wall surgery and therefore tissue based reconstruction options may be more limited. She understands that Dr. Hartmann's start date at our hospital is in 2 weeks. I have discussed the case with Dr. Hartmann. Patient functional status was assessed. Functional status was calculated using the Persaud Activity Status Index (DASI). The DASI score ranges from 0 to 58.2, with higher scores indicating better functional capacity and lower likelihood of perioperative complication relative to functional status. * Score >34: Referral for pre-treatment services is not indicated. Patient encouraged to continue active lifestyle. Functional assessment to be repeated as needed, as patient progresses through cancer treatment. Genetic counseling was offered for an extended panel. All questions were answered. The patient would like to pursue bilateral mastectomy, right SLNB, andstaged reconstruction pending plastic surgery consultation. She will be referred for consultation with medical oncology. The patient was introduced to our breast cancer nurse navigator. The patient's case will be presented at the next multidisciplinary breast cancer conference. It was a pleasure seeing Leydi Miller at the [facility] today. The patient has been instructed to call with any additional questions or concerns. Thank you for this referral. Miriam Rainey MD, MS, [facility] A Member of [facility] W [phone] F [phone] [place] [id number] [email or web address] * Kenia Marquez RN - 07/07/2024 3:15 PM EST NNN Pt arrives today for newly diagnosed consultation. She has been diagnosed with right breast DCIS that is ER+ AR + and HER 2 negative. She does have a prior history (10 years ago) of DCIS right breastin which she had a lumpectomy and radiation therapy. All imaging and pathology reports have been reviewed by Dr. Rainey. They did have a long discussion and because of her history and anxiety of additional biopsies, she is wanting to move forward with bilateral mastectomies with reconstruction.She will be referred to Dr. Hartmann for surgical options. She was tested for BRCA gene when she had her first diagnosis and was negative but would like to get the extended panel. [employer] link was sent with instructions to get blood work once she has completedthis intake. She has received my contact information and the new patient folder. She will reach out if she has not heard from anyone by the end of next week. documented in this encounter Plan of Treatment Upcoming Encounters Date Type Department Care Team ([facility] st Contact Info) Description 07/22/2024 4:45 PM EST Office Visit Nephrology [facility] [address] [place] [address] Armando Laura MD [address] [address] Scheduled Orders Name Type Priority Associated Diagnoses Orde r Schedule Ambry - Miscellaneous Test Lab Routine Ductal carcinoma in situ (DCIS) of right breast 1 Occurrences starting 07/07/2024 until 07/07/2025 ECG 12 lead ECG Routine Ductal carcinoma in situ (DCIS) of right breast 1 Occurrences starting 07/13/2024 until 07/13/2025 Scheduled Procedures Name Priority Associated Diagnoses Date/Ti me 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 EXCISION BIOPSY LYMPH NODE SENTINEL BREAST Ductal carcinoma in situ (DCIS) of right breast INSERTION TISSUE EXCEPTIONAL NEEDS TEACHER Ductal carcinoma in situ (DCIS) of right breast Scheduled Referrals Name Type Priority Associated Diagnoses Order Schedule Ambulatory referral to Hematology / Oncology Outpatient Referral Routine Ductal carcinoma in situ (DCIS) of right breast 1 Occurrences starting 07/13/2024 until 07/13/2025 documented as of this encounter Visit Diagnoses Diagnosis Ductal carcinoma in situ (DCIS) of right breast- Primary History of breast cancer Personal history of malignant neoplasm of breast History of therapeutic radiation documented in this encounter Orders Case Request Count Last Ordered Date First Orde red Date CASE REQUEST OPERATING ROOM 1 07/13/2024 documented in this encounter Additional Health Concerns Assessment Noted Time PHQ-9 Depression Total Score: 0 06/03/20 24 9:30 AM EST documented as of this encounter Care Teams Urology Physician Relationship Specialty Start Date End Date Rasta Ruelas PA [address] [place] [id number] PCP - General Internal Medicine 05/31/24 documented as of this encounter
--- OUTSIDE RECORDS SUMMARY | 2024-07-19 07:30 | XMS_ITS | Encounter Summary ---
Author Organization [facility] Address [address] [place] [address] Care Team Providers Care Fitness Consultant Name Role Phone Rasta Ruelas Primary Care Provider [phone] Reason for Referral * Imaging (Routine) - Pending Review Specialty Diagnoses / Procedures Referred By Lamar wallace Referred To Contact Radiology Diagnoses Abnormal mammogram Procedures MG Stereo Bx Breast Perc 1st Lesion Right Rasta Ruelas PA [address] [place] [address] Referral ID Status Reason Start Date Expiration Date V isits Requested Visits Authorized [id number] Pending Review 06/15/2024 06/15/2025 1 1 Reason for Visit * Imaging (Routine) - Pending Review Specialty Diagnoses / Procedures Referred By Contdami t Referred To Contact Radiology Diagnoses Abnormal mammogram Procedures MG Stereo Bx Breast Perc 1st Lesion Right Rasta Ruelas PA [address], [place] [address] Referral ID Status Reason Start Date Expiration Date V isits Requested Visits Authorized [id number] Pending Review 06/15/2024 06/15/2025 1 1 Encounter Details Date Type Department Care Team (Latest Contact Info) Description 06/22/2024 1:34 PM EST - 06/22/2024 11:59 PM [facility] Hospital Encounter Radiology Department - [address] [address] Abnormal mammogram Discharge Disposition: Home or Self Care Social History Tobacco Use Types Packs/Day Years [...] care for your loved ones. For example, teacher early childhood development or elderly care for an older adult? [...] on file documented as of this encounter Medications at Time of Discharge Medication Sig Dispensed Refills Start Date End Date aspirin 81 mg EC tablet Take 81 mg by mouth daily. azithromycin (ZITHROMAX) 250 mg tablet Take 2 tabs on day one and then 1 tab for the next 4 days 6 tablet 06/03/2024 levothyroxine (Synthroid) 175 mcg tablet Take 1 tablet (175 mcg total) by mouth 1 (one) time each day. 05/26/2020 potassium chloride 20 mEq tablet extended release Take 1 tablet by mouth 2 (two) times a day. 12/02/2023 predniSONE (DELTASONE) 20 mg tablet Take 3 tabs daily x3 days, then take 2 tabs daily x3 days, then take 1 tab daily for 3 day 18 each 06/03/2024 Repatha SureClick 140 mg/mL pen injector injection INJECT 140MG UNDER THE SKIN EVERY 2 WEEKS 04/22/2024 furosemide (LASIX) 40 mg tablet TAKE 2 TABLETS BY MOUTH EVERY MORNING AND 1 TABLET EVERY EVENING DIRECTED. 90 tablet 1 04/28/2024 07/07/2024 documented as of this encounter Discharge Disposition Disposition Code Departure Means Destination Home or Self Care documented in this encounter Plan of Treatment Upcoming Encounters Date Type Department Care Team (Late st Contact Info) Description 07/22/2024 4:45 PM EST Office Visit Nephrology - [facility] [address] [place] [address] Armando Laura MD [address] [address] Scheduled Procedures Name Priority Associated Diagnoses Date/Ti me 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 EXCISION BIOPSY LYMPH NODE SENTINEL BREAST Ductal carcinoma in situ (DCIS) of right breast INSERTION TISSUE TAPE SEWER Ductal carcinoma in situ (DCIS) of right breast documented as of this encounter Procedures Procedure Name Priority Date/Time Associated Diagnosis Comments MG STEREO BX BREAST PERC 1ST LESION RIGHT Routine 06/22/2024 2:35 PM EST Abnormal mammogram TISSUE EXAM Routine 06/22/2024 2:30 PM EST Abnormal mammogram documented in this encounter Results * MG Stereo Bx Breast Perc 1st Lesion Right (06/22/2024 2:35 PM EST) Anatomical Region Laterality Modality Breast Right Mammography 06/22/2024 3:36 PM EST Addenda Addendum by Mylene Brody MD on 06/28/2024 11:57 AM EST Addendum: Right breast, upper outer, middle depth, calcifications, top hat clip, stereotactic core biopsy: 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 Greatest length of invasive carcinoma: 0.6 mm Dallas score: Not applicable, microinvasion only In situ carcinoma: Present, high nuclear grade, comedo necrosis Lymphovascular invasion: Not identified Pathology is concordant with imaging findings and surgical consultation is recommended. Results and recommendation for surgical consultation discussed with the patient by telephone at 11:52 AM on 06/28/2024. ??Secure message sent to Kenia Marquez, nurse navigator at the [facility], who will arrange surgical consultation for the patient. -------- ADDENDUM -------- Dictated By: Mylene Brody Dictated Date: 06/28/2024 11:54 ET Assigned Physician: Mylene Brody Reviewed and Electronically Signed By: Mylene Brody Signed Date: 06/28/2024 11:57 ET Workstation ID: [id number] Transcribed By: Self Edit Transcribed Date: 06/28/2024 11:54 ET Impressions 06/22/2024 3:43 PM EST Successful stereotactic biopsy of right breast calcifications. ??Pathologic analysis is pending. BREAST DENSITY: B - There are scattered areas of fibroglandular density. BI-RADS CATEGORY: Waiting for Pathology RECOMMENDATION: Pathology pending for the right breast. MAMMO LOCATION: [facility], [address] [place] [address], [address], . POS - [id number] -------- FINAL REPORT -------- Dictated By: Mylene Brody Dictated Date: 06/22/2024 15:36 ET Assigned Physician: Mylene Brody Reviewed and Electronically Signed By: Mylene Brody Signed Date: 06/22/2024 15:43 ET Workstation ID: [id number] Transcribed By: Self Edit Transcribed Date: 06/22/2024 [...] patient and written instructions given. ?? Rasta HERNANDES BI PROCEDURES * Tissue exam (06/22/2024 2:30 PM EST) Correction History This report is amended to correct omission of the words in situ after high grade ductal carcinoma in the diagnosis. No other changes are made. Dr. Everett is notified via secure chat on 07/07/24. 5 4:13 PM EST [facility] Addendum Breast Invasive Carcinoma [...] of cells. 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 Vic Murray performed second review of malignancy. Dr. Brody notified via secure chat of preliminary findings on 06/25/24 and final diagnosis on 06/28/24. 4:[address] [facility] Clinical Information ? cancer Top hat clip lot # [id number] 4:[address] [facility] Gross Description A. Breast, Right, upper [...] 72 hours): 55 hours JOVANNA 4:[address] [facility] Special Stains Calponin and p63 stains [...] positive=1-10% positive nuclei, Positive >10% positive nuclei MI: Staining evaluation MI: Positive= >1% positive nuclei. Detection system: Polymer HRP, [employer] Laboratory-developed tests In Vitro Diagnostic: ER clone [id number] [employer], MI clone 16 Leica 4:13 PM EST [facility] Disclaimer NOTE: The immunohistochemical tests and in situ hybridization tests were developed and their performance characteristics were determined by [facility]. They have not been cleared [...] 10% NB formalin fixed and paraffin embedded. 5 4:13 PM EST [facility] Tissue Right breast structure / Unknown 06/22/2024 2:30 PM EST 06/24/2024 4:33 PM EST Comment:Top hat clip lot # [id number] Mylene Brody MD LAB PATHOLOGY ORDERA BLES [facility] [address] [place] [address], documented in this encounter Visit Diagnoses Diagnosis Abnormal mammogram Abnormal mammogram, unspecified documented in this encounter Additional Health Concerns Assessment Noted Time PHQ-9 Depression Total Score: 0 06/03/20 9:30 AM EST documented as of this encounter Care Teams Fitness Consultant Relationship Specialty Start Date End Date Rasta Ruelas PA [address] [place] [address] PCP - General Internal Medicine 05/31/24 documented as of this encounter
--- NOTE | 2024-07-19 07:40 | CA_ITS ---
Acquisition Time: 2024-07-19 09:07:41 Total Exercise Time: 00:06:30 Test Indications: CP Medications: ASA FURSOMIDE LEVOTHYROXINE KCL Protocol: NIRALI Max HR: 151 BPM 94% of Pred: 159 BPM Max BP: 138/72 mmHG Max Work Load: 7.7 METS Exercise Stress Test with exercise 6 mins 30 secs of Nirali Protocol, achieving 88% MPHR, with reports of 3/10 left sided chest pressure at baseline that got up to 4/10 with exercise, with moderate SOB, with frequent isolated PVCs and ventricular couplets and pt states she feels the PVCs, with normotensive response to exercise. With T wave inversions in lead 3 at baseline and in leads aVF, V3-V6 in recovery. In recovrey, chest pressure and breathing back to baseline. Nuclear images pending. Test reviewed with Dr. Norman. Referred By: Matheus Krause Electronically Signed By: Koko Parra
--- NOTE | 2024-07-19 07:40 | CA_ITS ---
Transthoracic Echocardiogram Patient (Last, First, Middle): Leydi Miller, Gender: Female Date of : 1965 Age: 59 Procedure Date: 07/19/2024 Procedure Type: Transthoracic Echocardiogram Location: OP Height: 175.26 cm Weight: 102.97 kg BSA: 2.18 m2 Heart Rate: bpm BP: 130 / 78 mmHg Aerospace Quality Engineer: THOMAS Referring MD: Matheus Krause MD Symptoms: R07.9 - Chest pain, unspecified Study Quality: Fair ECG Rhythm: Sinus Conclusions: - The left ventricular systolic function is normal. The calculated ejection fraction is 60% by biplane method. - No obvious valvular pathology seen on this study. Findings Left Ventricle Normal left ventricular cavity size. The left ventricular systolic function is normal. The calculated ejection fraction is 60% by biplane method. There is no evidence of regional wall motion abnormalities. Diastolic function is normal for age. There is mild septal asymmetric hypertrophy. Right Ventricle Normal right ventricular cavity size and systolic function. Atria Both atria are normal in size. Aortic Valve There is a normal trileaflet aortic valve. There is mild calcification of the aortic valve. There is no aortic valve stenosis. There is no aortic valve regurgitation. Mitral Valve The mitral valve appears normal. There is trace mitral valve regurgitation. There is no mitral valve stenosis. Pulmonic Valve The pulmonic valve is likely normal. Tricuspid Valve There is trace tricuspid valve regurgitation. There is no evidence of pulmonary hypertension. Great Vessels Top normal ascending aortic size at 3.8 cm. Arch measurement 3.6 cm. Venous The inferior vena cava is mildly dilated and collapses greater than 50% with inspiration. Pericardium/Pleural There is a trivial pericardial effusion. Prior Study Comparison No prior study available for comparison. Recommendations, Care & Conclusions No obvious valvular pathology seen on this study. Measurements 2D Linear Measurements IVSd: 1.22 0.6-0.9/0.6-1.0 cm LVIDd: 4.59 3.9-5.3/4.2-5.9 cm LVIDd Index: 2.11 2.4-3.2/2.2-3.1 cm/m2 LVIDs: 3.01 2.0-3.6 cm LVPWd: 0.99 0.7-1.1 cm LA Diam: 4.30 2.7-3.8/3.0-4.0 cm LAIDs Index: 1.97 1.5-2.3 cm/m2 LV Mass: 225.72 67-162/88-224 g LV Mass Index: 103.54 43-95/49-115 g/m2 LVOT Diam: 2.20 3.0+(-)1.3 cm 2D Systolic Function EF 4C: 56.90 >55% EF 2C: 60.60 >55% EF BiP: 60.00 >55% Mitral Valve MV Pk E: 0.51 MV PK A: 0.66 MV Decel Time: 296.00 E/A: 0.80 E'Lateral: 9.46 E'Medial: 5.11 E/E' Med: 9.90 E/E' Lat: 5.30 PHT: 87.00 MVA PHT: 2.53 Decel Hutchinson: 1.71 Aortic Valve AoV Pk Anurag: 1.47 AoV Mn Anurag: 1.06 AoV VTI: 0.32 AoV Pk Grad: 9.00 Aov Mn Grad: 5.00 ANDREW Cont.VTI: 2.56 LVOT LVOT Pk Anurag: 0.96 LVOT Mn Anurag: 0.71 LVOT VTI: 0.22 LVOT Pk Grad: 4.00 LVOT Mn Grad: 2.00 LVOT Diam: 2.20 LVOT Area: 3.80 Diastolic Function MV Pk E: 0.51 MV Pk A: 0.66 E/A: 0.80 E'Medial: 5.11 E/E' Med: 9.90 E' Laterial: 9.46 E/E' Lat: 5.30 Right Ventricle TAPSE (mm): 21.20 TVS' Anurag: 9.14 Tricuspid Valve TR Pk Anurag: 2.07 TR Pk Grad: 17.00 RA Press: 8.00 RVSP: 25.00 Great Vessels Aorta Ao Asc: 3.80 2.1-3.4 cm Ao Arch: 3.60 Updated in Other Vendor System with Status of Final Teto Norman MD electronically signed on 07/20/2024 11:45:22 AM with status of Final
== END ==
LOC: HO.CARD 07:27
PROVIDERS: PCP Physician Assistant Medical; Visit Provider Internal Medicine Cardiovascular Disease
DX: R07.9 Chest pain, unspecified (principal)
CPT/HCPCS: 78452; 93017; 93306; A9500

== ENCOUNTER → 2024-07-19 07:40 | Outpatient (BNV) | payer OTHER, SELFPAY | PROVIDERS: PCP Physician Assistant Medical | DX: I49.3 Ventricular premature depolarization (principal); R07.9 Chest pain, unspecified; R06.02 Shortness of breath | CPT/HCPCS: 78452; 93016; 93018; 93350 ==